=== PATIENT | male | born 1945 | race Caucasian/White ===

== ENCOUNTER 2025-03-17 09:44 | Outpatient (OUT) | payer OTHER, SELFPAY ==
--- OUTSIDE RECORDS SUMMARY | 2024-05-05 05:00 | XMS_ITS | Encounter Summary ---
Author Name [facility] [place] [facility] Address [address] [place] [address] Care Team Providers Care Vice President Pharmacy Name Role Phone ROBERTYUKION Primary Care Provider Unavailabl e Insurance Providers: All historical and current Section Date Range: From patient's date of to the date document was created. This section includes the names of all active insurance providers for the patient. Insurance Provider Type of Coverage Plan Name Start of Policy Coverage End of Policy Coverage Group Number Member ID Insurance Provider's Telephone Number Policy Gonzales's Name Patient's Relationship to Policy Gonzales [employer] [facility] (WNR) MEDICARE ADVANTAGE [facility] ([facility]) Oct 21, [id number] [id number] [phone] WIDMAN,SCOTT WRENCE PATIENT [employer]ETNA [facility] (WNR) MEDICARE ADVANTAGE [facility] ([facility]) Oct 21, [id number] [id number] WIDMAN,LA WRENCE PATIENT MEDICARE (WNR) MEDICARE (M) PART A Aug 21, 2009 PART A [id number] WIDMAN,LA WRENCE PATIENT MEDICARE (WNR) MEDICARE (M) PART B Aug 21, 2009 PART B [id number] WIDMAN,LA WRENCE PATIENT Selected Encounter This section includes the information on record at [place] for the Encounter. Date/Time Encounter Type Encounter Description Reason Provider Source May 05, 2024 09:00 AM HEARING AID REPAIR/MODIFYIN G AUDIOLOGY ICD-10-CM Z46.1 Encounter for fitting and adjustment of hearing aid JOHAN PICKETT Rishi Encounter Template Text not used by [place] Assessments - Encounter Diagnoses This section includes the primary and secondary diagnoses documented for the Encounter. Date/Time Primary/Secondary Diagnosis Diagnosis Name Provider Source May 05, 2024 09:00 AM PRIMARY Encounter for fitting and adjustment of hearing aid WANDA LAWSON [facility] Plan of Treatment: Future Appointments (+ 6 months) and Future Tests (+/- 45 days) The Plan of Treatment section includes future care activities for the patient from all [place] treatmentfacilities. This section includes future appointments and future orders which are active, pending or scheduled. Future Appointments This section includes appointments that were scheduled to occur 6 months from the date of the Encounter, up to a maximum of 20 appointments. The data comes from all [place] treatment facilities. Appointment Date/Time Appointment Type Appointme nt Facility Name Jul 06, 2024 09:30 AM AMBULATORY - MEDICINE [facility] Sep 03, 2024 09:00 AM AMBULATORY - NONE [facility] Social History: Smoking Status (Most current) and Tobacco Use (All prior to encounter date) This section includes the most current, and the historical, smoking and tobacco- related health factors from the [place] facility where the Encounter took place. Current Smoking Status This section includes the most current smoking, or tobacco-related health factor, from the [place] facility where the Encounter took place. Date/Time Current Smoking Status Comment Facil ity Jul 08, 2023 09:30 AM VA-TOBACCO FORMER USER [facility] Tobacco Use History This section includes a history of the smoking, or tobacco-related health factors, that were collected on or before the date of the Encounter. The data comes from the [place] facility where the Encounter took place. Date/Time Smoking Status/Tobacco Use Comment F acility Jul 08, 2023 09:30 AM [place] QU[place] 15 YRS OR MORE [facility] Jul 11, 2022 03:30 PM VA-TOBACCO FORMER USER [facility] Jul 11, 2022 03:30 PM [place] 15 YRS OR MORE [facility] February 24, 2021 10:30 AM VA-TOBACCO NEVER USED [facility] Encounter Notes: All associated encounter notes This section contains the clinical notes associated to the Encounter. Date/Time Encounter Note(s) Provider Source May 05, 2024 08:49 AM AUDIOLOGY DIAGNOST IC STUDY NOTE: LOCAL TITLE: AUDIOLOGY HEARING AID STANDARD TITLE: AUDIOLOGY DIAGNOSTIC STUDY NOTE DATE OF NOTE: MAY 05, 2024@08:49 ENTRY DATE: MAY 05, 2024@08:49:53 AUTHOR: JEANNE LAWSON COSIGNER: URGENCY: STATUS: COMPLETED Hearing Device Clinic Model: Phonak LoopMeeo P90-R JESÚS Serial#: [id number] (R) Serial#: [id number] (L) SCHEDULED APPOINTMENT (Face to Face) Patient complaint: wire broke Initial visual inspection/listening check: -LEFT hearing aid is functional, listening check OK -RIGHT hearing aids instructor knitting is broken Repair actions taken: -Cleaned and checked hearing aids -Replaced wax filters -Replaced batteries -Vacuumed microphone ports -Replaced right instructor knitting -Replaced domes After above actions taken: -Listening check OK, BOTH hearing aids functional -BOTH Functional hearing aids returned to the pleased with today's visit. Recommend return to clinic PRN. /eliud/ JEANNE LAWSON CLIENT CONSULTANT Signed: 05/05/2024 09:04 JEANNE LAWSON [facility]
--- OUTSIDE RECORDS SUMMARY | 2024-07-06 05:30 | XMS_ITS | Encounter Summary ---
Author Name [facility] (MD[facility] Organization [facility] Address [address] [place] [address] Care Team Providers Care Laborer [place] Name Role Phone ROBERT PRESTON Primary Care Provider Unavailabl e Insurance Providers: [...] Name Patient's Relationship to Policy Gonzales AETNA [facility] (WNR) MEDICARE ADVANTAGE [facility] ([facility]) Oct 21, 2022 [id number] [phone] [place],LA WRENCE PATIENT [employer] MCR (WNR) MEDICARE ADVANTAGE MCR ([facility]) Oct 21, 2022 [id number] WIDMAN,LA WRENCE PATIENT MEDICARE (WNR) MEDICARE (M) PART A Aug 21, 2009 PART A [id number] WIDMAN,[place] WRENCE PATIENT MEDICARE (WNR) MEDICARE (M) PART B Aug 21, 2009 PART B [id number] WIDMAN,LA WRENCE PATIENT Selected Encounter This section includes the information on record at MD for the Encounter. Date/Time Encounter Type Encounter Description Reason Provider Source Jul 06, 2024 09:30 AM OFFICE O/P EST HI 40 MIN PRIMARY CARE/MEDICINE ICD-10-CM I10 Essential (primary) hypertension PRESTON JONES KYLAHRishi Encounter Template Text not used by MD Assessments - Encounter Diagnoses This section includes the primary and secondary diagnoses documented for the Encounter. Date/Time Primary/Secondary Diagnosis Diagnosis Name Provider Source Jul 06, 2024 10:08 AM PRIMARY Essential (primary) hypertension RUPESH SMYTH [facility] Jul 06, 2024 10:08 AM SECONDARY Hyperlipidemia, unspecified RUPESH SMYTH [facility] Jul 06, 2024 10:08 AM SECONDARY Nonrheumatic aortic (valve) stenosis RUPESH SMYTH [facility] Jul 06, 2024 10:08 AM SECONDARY Pulmonary fibrosis, unspecified [facility] Jul 06, 2024 10:08 AM SECONDARY Rheumatoid arthritis, unspecified [facility] Plan of Treatment: Future Appointments (+ 6 months) and Future Tests (+/- 45 days) The Plan of Treatment section includes future care activities for the patient from [facility]. This section includes future appointments and future orders which are active, pending or scheduled. Future Appointments This section includes appointments that were scheduled to occur 6 months from the date of the Encounter, up to a maximum of 20 appointments. The data comes from all MD treatment facilities. Appointment Date/Time Appointment Type Appointme nt Facility Name Sep 03, 2024 09:00 AM [facility]ATORY - [facility] Nov 13, 2024 11:30 AM [facility] - [facility] Nov 24, 2024 10:00 AM [facility]ORY - [facility] Vital Signs: All taken on the encounter date This section contains inpatient and outpatient Vital Signs collected on the date of the Encounter. Date/Time Temperature Pulse Blood Pressure Respiratory Rate SP02 Pain Height Weight Body Mass Index Source Jul 06, 2024 09:44 AM 98.6 63 135/47 18 99 187 29 [facility] Jul 06, 2024 09:30 AM 4 [facility] Social History: Smoking Status (Most current) and Tobacco Use (All prior to encounter date) This section includes the most current, and the historical, smoking and tobacco- related health factors from the MD facility where the Encounter took place. Current Smoking Status This section includes the most current smoking, or tobacco-related health factor, from the MD facility where the Encounter took place. Date/Time Current Smoking Status Comment Frank ity Jul 06, 2024 09:30 AM VA-TOBACCO FORMER USER [facility] Tobacco Use History This section includes a history of the smoking, or tobacco-related health factors, that were collected on or before the date of the Encounter. The data comes from the MD facility where the Encounter took place. Date/Time Smoking Status/Tobacco Use Comment F acility Jul 06, 2024 09:30 AM VA-TOBACCO QUIT 15 YRS OR MORE [facility] Jul 08, 2023 09:30 AM VA-TOBACCO FORMER USER [facility] Jul 08, 2023 09:30 AM VA-TOBACCO QUIT 15 YRS OR MORE [facility] Jul 11, 2022 03:30 PM VA-TOBACCO FORMER USER [facility] Jul 11, 2022 03:30 PM VA-TOBACCO QUIT 15 YRS OR MORE [facility] February 24, 2021 10:30 AM MD-TOBACCO NEVER USED [facility] Encounter Notes: All associated encounter notes This section contains the clinical notes associated to the Encounter. Date/Time Encounter Note(s) Provider Source Jul 06, 2024 10:12 AM SOCIAL WORK NOTE: LOCAL TITLE: CLINICAL ASSESSMENT OF SOCIAL AND HEALTH EQUITY WOR STANDARD TITLE: SOCIAL WORK NOTE DATE OF NOTE: JUL 06, 2024@10:12 ENTRY DATE: JUL 06, 2024@10:12:24 AUTHOR: RUPESH SMYTH EXP COSIGNER: URGENCY: STATUS: COMPLETED Clinical Assessment of Social & Health Equity Worksheet (RODOLFO) Screening completed Housing (consider warm hand-off): (Are you worried or concerned that in the next two months you may NOT have stable housing that you own, rent, or stay in as part of a household?) No need identified at this time Food (consider warm hand-off): (In the past 12 months, have you worried whether your food would run out before you got money to buy more or the food you bought just didn't last and you didn't have money to get more?) No need identified at this time Utilities: (Do you have trouble paying for your utilities (e.g., electric, gas, oil, water, or phone)?) No need identified at this time Transportation: (Has a lack of transportation kept you from medical appointments, meetings, work, or from getting things needed for daily living?) No need identified at this time Legal: (Do you currently have any legal issues you need help with?) No need identified at this time Social Support/Loneliness or Isolation: (Do you feel lonely or isolated from those around you?) No need identified at this time Employment: (Do you need help finding or keeping work or a job No need identified at this time Education: (Do you want more information about educational benefits and resources for Veterans?) No need identified at this time Technology/Digital Divide: (Do you run out of phone minutes and/or data before the end of the month or have trouble accessing the internet?) No need identified at this time Would it be okay if a MD staff member were to give the [place] a call in the future? No, the does NOT want a MD staff member to contact them for a follow up interview If requested assistance, click the appropriate consult: /eliud/ RUPESH SMYTH LPN Signed: 07/06/2024 10:13 RUPESH SMYTH [facility] Jul 06, 2024 09:36 AM PRIMARY CARE OUTPATIENT NOTE: LOCAL TITLE: PRIMARY CARE STANDARD TITLE: PRIMARY CARE OUTPATIENT NOTE DATE OF NOTE: JUL 06, 2024@09:36 ENTRY DATE: JUL 06, 2024@09:36:52 AUTHOR: PRESTON JONES EXP COSIGNER: URGENCY: STATUS: COMPLETED PCP: Cleo Caceres CNP q 3 months Oncology Conventional Underwriter Dr.Shanna De La Rosa Rheumatology Dr.Dana White [facility] Pain management (LBP) MECHE [place] sc 60% ASSESSMENT/PLAN: (co-managed) -HTN BP stable managed by local md: on lisinopril,amlodopine,HCTZ -HLP on statin per private md -Moderate Aortic Stenosis + MR EF 55-60% TTE 08/2023 asymptomatic sees private career services director (declined to schedule with [facility] previously) -MACO + h/o TIA 2002 sees private md on ASA + statin -B/L Gyncomastia, since 2021 was told to be from covid infection? work up per private md -RA quiescent, no flares on prednisone 2.5mg daily, hydroxychloroquine sees private rheum sees [facility] opthal 01/2024: w/o retinopathy OU -UIP (RA associated ILD)/Pulmonary Fibrosis basilar honeycombing/traction bronchiectasis on imaging 02/2024 (jlv) sees private pulmologist Dr. Patel not on O2 -LBP/Lumbar Spinal Stenosis/DDD sees private pain md s/p injections + RFA, last was march 2024 on left side, helpful -Colon Polyps colonoscopy: 01/15/2024: tubular adenoma rpt in 3-4 yrs, defer to private md (stong +FH of CRC: 3 brothers + dad) daughter declines referral to CC printing services coordinator -Immunizations: -Labs: defer to private md RTC: 12 months HERE FOR: annual visit for update/co-managed comes in with , jade had covid infecton in 2020 and 2022 and says after second episode he lost his memory, not needing oxygen but admitted 2 days. now memory is 90% better, cannot remember names still. developped bilateral gynecomastia in ~2021, 44 C bra size, now decreasing in size. had work up: and CT revealed enlarged right axillary lymph nodes lost wt 40 lbs but gained back 20 lbs watching portion size seeing specialist noticed hard lump lipoma right lateral abdomen using hydrocortisone for rash BP: stable sees pulmonolgist for pulmonary fibrosis per JL: CT 03/10/2024: Essentially stable bibasilar predominant mild traction bronchiectasis and honeycombing compatible with interstitial lung disease in a pattern consistent with usual interstitial pneumonia. see Assessment/Plan above for further details of today's visit ROS: 12 system ROS negative except as above Past Medical History: HTN Aortic Stenosis (moderate)/Moderate MR EF 60% 09/2022 EF 55-60% 08/2023 Dyslipidemia Carotid Artery Stenosis (osh CTA 10/2022: mild-mod R ICA stenosis/excentric calcific plaque) TIA 2004 Seropositive RA (x 2013) Interstitial Lung Disease/Fibrosis/UIP (10/2022) COPD Ex-Tobacco user (quit in 1999) Peptic Ulcer/DU (remote) (sc 40%) Hemorrhoids Adenomatous Colon Polyps strong FH of Colon Cancer B/L Gyncomastia (since 2021) BPH ED OA Knees/post traumatic Right Ankle Lumbar Spondylosis/Spinal Stenosis (sc 40%) w/o Myelopathy s/p RFAs/injections Hearing Loss Gynecomastia b/l Past Surgical History: EGD/Colonoscopy 06/2020 Left Medial Meniscectomy 2019 Left TKA 01/05/21 Left Hernia Repair Right Ankle ORIF ~2011 Lumbar RFAs 08/2022 + 01/2024 MBBB Lumbar 10/2022 + 03/2023 B/L Cluneal Nerve Block 06/21/23 Allergies: see cover sheet Medications: see list Social: Tobacco: quit ~ 1999 EtOH: quit ~1999 no illicit drugs 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 [address] [phone], honorable d/c deployed Mayur lives with 6 kids daughter: Charlotte is nurst at [employer], [place] Family: mom: stroke age 78 dad: of metastatic colon cancer (diagnosed age 75) 3 brothers have colon cancer (diagnosed age 60s) 11 siblings total brother of stroke brother: bladder and colon cancer PHYSICAL EXAM: BP -135/47 (07/06/2024 09:44)P -63 (07/06/2024 09:44) R -18 (07/06/2024 09:44) BODY MASS INDEX 29.3 (JUL 06, 2024@09:44:05) CHEST: clear CVS: S1 S2 normal, + systolic mummur Abdom: soft nontender no masses MusSkeltal: no deformity, swelling Neuro: normal tone and power throughout, non focal Total time spent during patient visit and entering orders for patient was 35 minutes. Reminders P-MEDICATION RECONCILIATION: Review of medications with the patient at the time of this encounter included: Patient local and remote allergies, active and pending prescriptions dispensed from this [facility] (local) and dispensed from another MD or DoD facility (remote) as well as local inpatient and clinic medications (IMOs), locally documented non-VA medications and local prescriptions that have or been discontinued in the past 90 days. With the exception of allergies, if a category is not listed below, it means there were no relevant medications for the patient. The patient /family member received an updated list of current medications. Patient verbalized understanding. Local & Remote Allergies: PROCAINE Active Outpatient Medications (including Supplies): SILDENAFIL CITRATE 100MG TAB TAKE ONE-HALF TABLET BY MOUTH ACTIVE (S) NEEDED FOR ERECTILE DYSFUNCTION 60 MINUTES BEFORE SEXUAL ACTIVITY (VIAGRA) 90 DAY SUPPLY Non-VA AMLODIPINE BESYLATE 10MG TAB 10MG MOUTH ONCE DAILY ACTIVE Non-VA ASPIRIN 81MG EC TAB 81MG MOUTH ONCE DAILY ACTIVE Non-VA CELECOXIB 200MG CAP 200MG MOUTH TWICE A DAY ACTIVE Non-VA FAMOTIDINE TAB MOUTH ACTIVE Non-VA FERROUS SULFATE 325MG TAB 325MG MOUTH TWICE A DAY ACTIVE Non-VA FLUTICASONE PROP 50MCG 120D NASAL INHL 1 SPRAY EACH ACTIVE NOSTRIL ONCE DAILY Non-VA HYDROCHLOROTHIAZIDE 25MG TAB 25MG MOUTH EVERY ACTIVE MORNING Non-VA HYDROXYCHLOROQUINE SULFATE 200MG TAB 200MG MOUTH ACTIVE ONCE DAILY Non-VA LISINOPRIL 40MG TAB 40MG MOUTH ONCE DAILY ACTIVE Non-VA LOVASTATIN 40MG TAB 40MG MOUTH EVERY EVENING WITH ACTIVE DINNER Non-VA METHOTREXATE (PF) INJ ACTIVE Non-VA PREDNISONE 5MG TAB 2.5MG MOUTH EVERY MORNING ACTIVE /es/ PRESTON JONES STAFF PHYSCIAN Signed: 07/06/2024 10:10 PRESTON JONES [facility] Jul 06, 2024 09:28 AM PRIMARY CARE NURSING NOTE: LOCAL TITLE: PRIMARY CARE PREVENTIVE HEALTH STANDARD TITLE: PRIMARY CARE NURSING NOTE DATE OF NOTE: JUL 06, 2024@09:28 ENTRY DATE: JUL 06, 2024@09:28:15 AUTHOR: RUPESH SMYTH EXP COSIGNER: URGENCY: STATUS: COMPLETED S: In person appt. here for provider. O: Vitals entered. P: To see a provider. C/O: lower back pain N-Pain Screen: Are you currently experiencing pain? Yes - DVPRS scale used to assess Location: lower back pain Defense and Veterans Pain Rating Scale (DVPRS): 4 Distracts me, can do usual activities Pain Score: 4 Patient's acceptable pain goal: 0 No pain N-MEDICATION RECONCILIATION: Review of medications and allergies at the time of this encounter included: Local and remote allergies, active and pending prescriptions dispensed from this MD (local) and dispensed from another VA or DoD facility (remote) as well as local inpatient and clinic medications (IMOs), locally documented non-VA medications and local prescriptions that have or been discontinued in the past 90 days. If a category is not listed below, it means there were no known relevant local and/or remote medications and/or allergies. The patient/family member received an updated list of current medications. Local & Remote Allergies: PROCAINE Active Outpatient Medications (including Supplies): SILDENAFIL CITRATE 100MG TAB TAKE ONE-HALF TABLET BY MOUTH ACTIVE (S) NEEDED FOR ERECTILE DYSFUNCTION 60 MINUTES BEFORE SEXUAL ACTIVITY (VIAGRA) 90 DAY SUPPLY Non-VA AMLODIPINE BESYLATE 10MG TAB 10MG MOUTH ONCE DAILY ACTIVE Non-VA ASPIRIN 81MG EC TAB 81MG MOUTH ONCE DAILY ACTIVE Non-VA CELECOXIB 200MG CAP 200MG MOUTH TWICE A DAY ACTIVE Non-VA FAMOTIDINE TAB MOUTH ACTIVE Non-VA FERROUS SULFATE 325MG TAB 325MG MOUTH TWICE A DAY ACTIVE Non-VA FLUTICASONE PROP 50MCG 120D NASAL INHL 1 SPRAY EACH ACTIVE NOSTRIL ONCE DAILY Non-VA HYDROCHLOROTHIAZIDE 25MG TAB 25MG MOUTH EVERY ACTIVE MORNING Non-VA HYDROXYCHLOROQUINE SULFATE 200MG TAB 200MG MOUTH ACTIVE ONCE DAILY Non-VA LISINOPRIL 40MG TAB 40MG MOUTH ONCE DAILY ACTIVE Non-VA LOVASTATIN 40MG TAB 40MG MOUTH EVERY EVENING WITH ACTIVE DINNER Non-VA METHOTREXATE (PF) INJ ACTIVE Non-VA PREDNISONE 5MG TAB 2.5MG MOUTH EVERY MORNING ACTIVE Alcohol Use Screen (AUDIT-C): Alcohol Screen: SCREEN FOR ALCOHOL (AUDIT-C) An alcohol screening test (AUDIT-C) was negative (score=1). 1. How often did you have a drink containing alcohol in the past year? Consider a drink to be a 12 ounce can or bottle of regular beer, 8 ounces of malt liquor, a 5 ounce glass of table wine, or a 1.5 ounce shot of liquor (like scotch, gin, or vodka). Monthly or less 2. How many drinks containing alcohol did you have on a typical day when you were drinking in the past year? One or two drinks 3. How often did you have six or more drinks on one occasion in the past year? Never Tobacco Use Screening: The patient is a former tobacco user. The patient quit fifteen or more years ago. N-Stress Discussed (VAAAHS): [place] DENIES experiencing substantial stress or worry in the past month. Depression Screening: Perform PHQ-2 A PHQ-2 screen was performed. The score was 0 which is a negative screen for depression. Over the past two weeks, how often have you been bothered by the following problems? 1. Little interest or pleasure in doing things Not at all 2. Feeling down, depressed, or hopeless Not at all Suicide Screen: C-SSRS Screening [place] Suicide Severity Rating Scale (C-SSRS) screener 1. Over the past month, have you wished you were or wished you could go to sleep and not wake up? No 2. Over the past month, have you had any actual thoughts of killing yourself? No 3. Over the past month, have you been thinking about how you might do this? Response not required due to responses to other questions. 4. Over the past month, have you had these thoughts and had some intention of acting on them? Response not required due to responses to other questions. 5. Over the past month, have you started to work out or worked out the details of how to kill yourself? Response not required due to responses to other questions. 6. If yes, at any time in the past month did you intend to carry out this plan? Response not required due to responses to other questions. 7. In your lifetime, have you ever done anything, started to do anything, or prepared to do anything to end your life (for example, collected pills, obtained a gun, gave away valuables, went to the roof but didn't jump)? No 8. If YES, was this within the past 3 months? Response not required due to responses to other questions. N HEALTHY SKIN REMINDER: Do you use sunscreen when [id number]? YES. No further action. Do you check your skin regularly for new spots or changes in existing moles or lesions? YES. Do you require assistance to transfer or change position? NO. Are you confined to bed or a chair or are you a wheel-chair user? NO. Do you have any medical devices (e.g. artificial limb, braces, splint, oxygen tubing, [place] or Condom catheter, tracheostomy, feeding tube, etc)? NO. Do you have a current pressure injury or history of a pressure injury (i.e. [place]) that is NOT related to a medical transcription? NO. N-Education Assessment: Patients preferred language for discussing healthcare: Language: Maori READINESS TO LEARN ASSESSMENT Readiness good Level of Understanding: Good N-FRAIL ELDERLY SCREEN (ACOVE): FALLS HISTORY: Has the patient fallen within the past 12 months? NO. FUNCTIONAL ASSESSMENT: Index of [place] in Activities of Daily Living ACTIVITIES: INDEPENDENCE (1 point) NO supervision, direction, or personal assistance. DEPENDENCE (0 points) WITH supervision, direction, personal assistance, OR total care. Points: 1 BATHING: (1 point) Baths self completely or needs help in bathing only a single a single part of the body such as the back, genital area or disabled extremity. (0 point) Needs help with bathing more than one part of the body, getting in or out of the tub or shower. Requires total bathing. Points: 1 DRESSING: (1 point) Gets clothes from closets and drawers and puts on clothes and outer garments complete with fasteners. May complete with fasteners. May have help tying shoes. (0 point) Needs help withdressing self or needs to be completely dressed. Points: 1 TRANSFERRING: (1 point) Moves in and out of bed or chair unassisted. Mechanical transferring aides are acceptable. (0 point) Needs help in moving from bed to chair or requires a complete transfer. Points: 1 TOILETING: (1 point) Goes to toilet, gets on and off, arranges clothes, cleans genital area without help. (0 point) Needs help transferring to the toilet, cleaning self or uses bedpan or commode. Points: 1 CONTINENCE: (1 point) Exercises complete self control over urination and defecation. (0 point) Is partially totally incontinent of bowel or bladder. Points: 1 Patient satisfied with current status FEEDING: (1 point) Gets food from plate into mouth without help Preparation of food may be done by another person. (0 point) Needs partial or total help with feeding or requires parenteral feeding. Points: 1 TOTAL POINTS: 6=High (patient independent) 0=Low (patient very dependent) 6 INSTRUMENTAL ACTIVITIES OF DAILY LIVING (IADL) SCALE ([place]) Ability to use telephone: 1 point - Operates telephone on own initiative; looks up and dials numbers, etc. Shoppin point - Takes care of all shopping needs independently Food preparation: 1 point - Plans, prepares, and serves adequate meals independently Housekeepin point - Maintains house alone or with occasional assistance (e.g., heavy work domestic help ) Laundry: 1 point - Does personal laundry completely Mode of transportation: 1 point - Travels independently on public transportation or drives own car Responsibility for own medications: 1 point - Is responsible for taking medication in correct dosages at correct time Ability to handle finances: 1 point - Manages financial matters independently (budgets, writes checks, pays rent and bills, goes to bank), collects and keeps track of income SCORING: The total score may range from 0 - 8. A lower score indicates a higher level of dependence. Total score: 8 points Click appropriate selection below: Patient does not require assistance. /eliud/ RUPESH SMYTH LPN Signed: 07/06/2024 09:41 RUPESH SMYTH [facility] Jul 03, 2024 08:08 AM NURSING NOTE: LOCAL TITLE: NURSING NOTE STANDARD TITLE: NURSING NOTE DATE OF NOTE: JUL 03, 2024@08:08 ENTRY DATE: JUL 03, 2024@08:08:15 AUTHOR: DEBBIE VALDOVINOS EXP COSIGNER: URGENCY: STATUS: COMPLETED It Programmer contacted today: To confirm patient will attend upcoming in-person primary care appointment. Patient ASKED TO arrive 15 minutes early, to ensure appointment with MD starts promptly. verbalized understanding and denied question/concerns at the end of call. /eliud/ DEBBIE VALDOVINOS LPN Signed: 07/03/2024 08:08 DEBBIE VALDOVINOS [facility]
--- OUTSIDE RECORDS SUMMARY | 2024-09-03 05:00 | XMS_ITS ---
Author Name Department of Vetera Affairs (MD) Organization Department of Vetera Affairs ([place]) Address [address] [place] [address] Care Team Providers Care Beam Dyer Operator Name Role Phone ROBERTYUKION Primary Care Provider [...] Name Patient's Relationship to Policy Gonzales AETNA [facility] ([place]) MEDICARE ADVANTAGE [facility] ([facility]) Oct 21, 2022 [id number]- [place] [id number] [phone] WIDMAN,LA WRENCE PATIENT AETNA [facility] (WNR) MEDICARE ADVANTAGE [facility] ([facility]) Oct 21, 2022 [id number] [place] [id number] [phone] WIDMAN,LA WRENCE PATIENT MEDICARE (WNR) MEDICARE (M) PART A Aug 21, 2009 PART A [id number] WIDMAN,LA WRENCE PATIENT MEDICARE (WNR) MEDICARE (M) PART B Aug 21, 2009 PART B [id number] [phone] WIDMAN,LA WRENCE PATIENT Selected Encounter This section includes the information on record at MD for the Encounter. Date/Time Encounter Type Encounter Description Reason Provider Source Sep 03, 2024 09:00 AM HEARING AID REPAIR/MODIFYIN G AUDIOLOGY ICD-10-CM Z46.1 Encounter for fitting and adjustment of hearing aid JOHAN PICKETT [facility] Encounter Template Text not used by MD Assessments - Encounter Diagnoses This section includes the primary and secondary diagnoses documented for the Encounter. Date/Time Primary/Secondary Diagnosis Diagnosis Name Provider Source Sep 03, 2024 09:05 AM PRIMARY Encounter for fitting and adjustment of hearing aid WANDA LAWSON [facility] Plan of Treatment: Future Appointments (+ 6 months) and Future Tests (+/- 45 days) The Plan of Treatment section includes future care activities for the patient from all [facility]. This section includes future appointments and future orders which are active, pending or scheduled. Future Appointments This section includes appointments that were scheduled to occur 6 months from the date of the Encounter, up to a maximum of 20 appointments. The data comes from all MD treatment facilities. Appointment Date/Time Appointment Type Appointme nt Facility Name Nov 13, 2024 11:30 AM AMBULATORY - MEDICINE [facility] Nov 24, 2024 10:00 AM AMBULATORY - MEDICINE [facility] Jan 13, 2025 09:45 AM AMBULATORY - SURGERY [facility] Social History: Smoking Status (Most [...] Current Smoking Status Comment Facil ity Jul 06, 2024 09:30 AM VA-TOBACCO FORMER USER [facility] Tobacco Use History This section includes a history of the smoking, or tobacco-related health factors, that were collected on or before the date of the Encounter. The data comes from the MD facility where the Encounter took place. Date/Time Smoking Status/Tobacco Use Comment F acility Jul 06, 2024 09:30 AM MD-TOBACCO QUIT 15 YRS OR MORE [facility] Jul 08, 2023 09:30 AM MD-TOBACCO FORMER USER [facility] Jul 08, 2023 09:30 AM MD-TOBACCO QUIT 15 YRS OR MORE [facility] Jul 11, 2022 03:30 PM VA-TOBACCO FORMER USER [facility] Jul 11, 2022 03:30 PM MD-TOBACCO QUIT 15 YRS OR MORE [facility] February 24, 2021 10:30 AM VA-TOBACCO NEVER USED [facility] Encounter Notes: All associated encounter notes This section contains the clinical notes associated to the Encounter. Date/Time Encounter Note(s) Provider Source Sep 03, 2024 08:51 AM AUDIOLOGY DIAGNOST IC STUDY NOTE: LOCAL TITLE: AUDIOLOGY HEARING AID STANDARD TITLE: AUDIOLOGY DIAGNOSTIC STUDY NOTE DATE OF NOTE: SEP 03, 2024@08:51 ENTRY DATE: SEP 03, 2024@08:51:38 AUTHOR: JEANNE LAWSON EXP COSIGNER: URGENCY: STATUS: COMPLETED Hearing Device Clinic Model: Phonak Audeo P90-R JESÚS Serial#: [id number] (R) Serial#: [id number] (L) SCHEDULED APPOINTMENT (Face to Face) Patient complaint: The left one was not charging, but I put it on the electrolog operator last night and it is working now. It has a mind of its own. Rupert was using old charging wall plug, gave him a new one from clinic stock. Initial visual inspection/listening check: -BOTH hearing aids are functional, listening check OK Repair actions taken: -Cleaned and checked hearing aids -Replaced wax filters -Vacuumed microphone ports -Replaced domes instructed to call clinic and make a tech appt if issue continues After above actions taken: -Listening check OK, BOTH hearing aids functional -BOTH Functional hearing aids returned to the pleased with today's visit. Recommend return to clinic PRN. /eliud/ JEANNE LAWSON PHYSICAL SCIENCES PROFESSOR Signed: 09/03/2024 09:26 Receipt Acknowledged By: 09/03/2024 09:37 /eliud/ LEX PICKETT GATHERING WORKER JEANNE LAWSON [facility]
--- OUTSIDE RECORDS SUMMARY | 2024-11-13 07:30 | XMS_ITS | Encounter Summary ---
Author Name Department of Vetera Affairs ([place]) Organization [facility] Address [address] [place] [address] Care Team Providers Care Smoke Eater Name Role Phone ROBERTPRESTON Primary Care Provider Unavailabl e Insurance Providers: [...] Gonzales's Name Patient's Relationship to Policy Gonzales AENA [facility] MEDICARE ADVANTAGE [facility] Oct 21, 2022 [id number] [place] [id number] [phone] WIDMAN,SCOTT WRENCE PATIENT AETNA [facility] (WNR) MEDICARE ADVANTAGE [facility] ([facility]) Oct 21, 2022 [id number] [place] [id number] WIDMAN,LA WRENCE PATIENT MEDICARE (WNR) MEDICARE (M) PART A Aug 21, 2009 PART A [id number] WIDMAN,LA WRENCE PATIENT MEDICARE (WNR) MEDICARE (M) PART B Aug 21, 2009 PART B [id number] WIDMAN,LA WRENCE PATIENT Selected Encounter This section includes the information on record at [place] for the Encounter. Date/Time Encounter Type Encounter Description Reason Provider Source Nov 13, 2024 11:30 AM OFF/OP EST FEBRUARY X REQ PHY/QHP PRIMARY CARE/MEDICINE ICD-10-CM I10 Essential (primary) hypertension VINAY CAMERON I[facility] Encounter Template Text not used by [place] Assessments - Encounter Diagnoses This section includes the primary and secondary diagnoses documented for the Encounter. Date/Time Primary/Secondary Diagnosis Diagnosis Name Provider Source Nov 13, 2024 11:49 AM PRIMARY Essential (primary) hypertension RAQUEL CAMERON [facility] Plan of Treatment: Future Appointments (+ 6 months) and Future Tests (+/- 45 days) The Plan of Treatment section includes future care activities for the patient from all [place] treatmentfacilities. This section includes future appointments and future orders which are active, pending or scheduled. Future Appointments This section includes appointments that were scheduled to occur 6 months from the date of the Encounter, up to a maximum of 20 appointments. The data comes from all [place] treatment facilities. Appointment Date/Time Appointment Type Appointme nt Facility Name Nov 24, 2024 10:00 AM AMBULATORY - MEDICINE [facility] Jan 13, 2025 09:45 AM AMBULATORY - SURGERY [facility] Vital Signs: All taken on the encounter date This section contains inpatient and outpatient Vital Signs collected on the date of the Encounter. Date/Time Temperature Pulse Blood Pressure Respiratory Rate SP02 Pain Height Weight Body Mass Index Source Nov 13, 2024 11:39 AM 77 136/72 18 99 [facility] Encounter Notes: All associated encounter notes This section contains the clinical notes associated to the Encounter. Date/Time Encounter Note(s) Provider Source Nov 13, 2024 11:41 AM NURSING NOTE: LOCAL TITLE: PACT SENIOR PROJECT ARCHITECT NOTE STANDARD TITLE: NURSING NOTE DATE OF NOTE: NOV 13, 2024@11:41 ENTRY DATE: NOV 13, 2024@11:41:04 AUTHOR: EL CAMERON EXP COSIGNER: URGENCY: STATUS: COMPLETED identified by two patient identifiers S Verónica, I came into clinic today bc my BP was very high when I took it this morning, 200/100 then 150/80, I feel ok, I took my medicine this morning, we are traveling from [place] and here until december O in attendence, [facility] exam room, no issues, plesant, talkative, dresses appropriatefor weather A AAOX3, No signs of distress, no signs of SOB,VS documented, denies blurred vision, denies dizziness P Ok to go home today, continue to monitor BP, has wrist BP cuff and was not crossing his wrist over his chest while BP cuff running, probably resulting in false reading, education completed on those type of BP cuffs, verbalized understanding Please schedule an appt with [facility] for hearing aid adjustments /eliud/ EL CAMERON RN,BSN Signed: 11/13/2024 11:48 Receipt Acknowledged By: 11/13/2024 14:49 /es/ ADRIAN BRASWELL PHYSICIAN - V16 [facility] 11/23/2024 09:30 /eliud/ EL ACOSTA [facility]
--- OUTSIDE RECORDS SUMMARY | 2024-11-24 06:00 | XMS_ITS | Encounter Summary ---
Author Name Department of [place] Organization [place] Address [address] [place] [address] Care Team Providers Care Energy Risk Management Analyst Name Role Phone ROBERTYUKION Primary Care Provider [...] Name Patient's Relationship to Policy Gonzales AETNA [facility] (WNR) MEDICARE ADVANTAGE [facility] ([facility]) Oct 21, 2022 [id number] [place] [id number] [phone] WIDMAN,SCOTT WRENCE PATIENT AETNA [facility] (WNR) MEDICARE ADVANTAGE [facility] ([facility]) Oct 21, 2022 [id number]- [place] [id number] WIDMAN,LA WRENCE PATIENT MEDICARE (WNR) MEDICARE (M) PART A Aug 21, 2009 PART A [id number] [phone] WIDMAN,LA WRENCE PATIENT MEDICARE (WNR) MEDICARE (M) PART B Aug 21, 2009 PART B [id number] WIDMAN,LA WRENCE PATIENT Selected Encounter This section includes the information on record at [place] for the Encounter. Date/Time Encounter Type Encounter Description Reason Provider Source Nov 24, 2024 10:00 AM HEARING AID FITTING/CHECKIN G AUDIOLOGY ICD-10-CM Z46.1 Encounter for fitting and adjustment of hearing aid FALGUNI LOPEZ [facility] Encounter Template Text not used by [place] Assessments - Encounter Diagnoses This section includes the primary and secondary diagnoses documented for the Encounter. Date/Time Primary/Secondary Diagnosis Diagnosis Name Provider Source Nov 24, 2024 10:27 AM PRIMARY Encounter for fitting and adjustment of hearing aid FALGUNI LOPEZ [facility] Plan of Treatment: Future Appointments (+ 6 months) and Future Tests (+/- 45 days) The Plan of Treatment section includes future care activities for the patient from all [place] treatmentfacilities. This section includes future appointments and future orders which are active, pending or scheduled. Future Appointments This section includes appointments that were scheduled to occur 6 months from the date of the Encounter, up to a maximum of 20 appointments. The data comes from all [place] treatment facilities. Appointment Date/Time Appointment Type Appointme nt Facility Name Jan 13, 2025 09:45 AM AMBULATORY - SURGERY [facility] Encounter Notes: All associated encounter notes This section contains the clinical notes associated to the Encounter. Date/Time Encounter Note(s) Provider Source Nov 24, 2024 10:14 AM AUDIOLOGY NOTE: LOCAL TITLE: AUDIOLOGY HEARING AID NOTE STANDARD TITLE: AUDIOLOGY NOTE DATE OF NOTE: NOV 24, 2024@10:14 ENTRY DATE: NOV 24, 2024@10:14:13 AUTHOR: FALGUNI LOPEZ EXP COSIGNER: URGENCY: STATUS: COMPLETED IDENTIFICATION WAS VERIFIED USING TWO FORMS OF IDENTIFICATION. HEARING AID CHECK/REPAIR Reason for visit: reports difficulty hearing from his hearing aids. Make/Model: Phonak JESÚS-R Visual Inspection of Hearing Aids: Debris occluding receivers of both HAs. Listening Check of Hearing Aids: Good sound quality/loudness after replacing wax guards on HAs. Other Actions: Updated Firmware in hearing aids and ran Feedback test. Replaced retention strands. Outcome: [place] reported improvement in sound quality/loudness of hearing aids. Plan: [place] will return to [place] in a few weeks, and he was encouraged to schedule a hearing evaluation at the [facility] at that time. /eliud/ FALGUNI Cuenca, CCC-A Signed: 11/24/2024 10:[address] [facility]
--- OUTSIDE RECORDS SUMMARY | 2025-01-13 05:45 | XMS_ITS | Encounter Summary ---
Author Name Department of Vetera Affairs ([place]) Organization Department of Veter[place] Affairs [place] Address [address] [place] [address] Care Team Providers Care Party Plan Salesperson Name Role Phone ROBERTPRESTON Primary Care Provider [...] Name Patient's Relationship to Policy Gonzales AENA [facility] ([facility] MEDICARE ADVANTAGE [facility] ([facility]) Oct 21, 2022 [id number] [place] [id number] [phone] WIDMAN,LA WRENCE PATIENT AETNA [facility] (R) MEDICARE ADVANTAGE [facility] ([facility]) Oct 21, 2022 [id number] [place] [id number] WIDMAN,LA WRENCE PATIENT MEDICARE (WNR) MEDICARE (M) PART A Aug 21, 2009 PART A [id number] WIDMAN,LA WRENCE PATIENT MEDICARE (WNR) MEDICARE (M) PART B Aug 21, 2009 PART B [id number] WIDMAN,LA WRENCE PATIENT Selected Encounter This section includes the information on record at [place] for the Encounter. Date/Time Encounter Type Encounter Description Reason Provider Source Jan 13, 2025 09:45 AM CPTRZ OPH DX IMG PST SGM RTA OPTOMETRY ICD-10-CM Z79.899 Other senior living (current) drug therapy RACHEAL HOLT [facility] Encounter Template Text not used by [place] Assessments - Encounter Diagnoses This section includes the primary and secondary diagnoses documented for the Encounter. Date/Time Primary/Secondary Diagnosis Diagnosis Name Provider Source Jan 13, 2025 10:02 AM PRIMARY Other senior living (current) drug therapy RACHEAL HOLT [facility] Jan 13, 2025 10:02 AM SECONDARY Age-related nuclear cataract, bilateral RACHEAL HOLT [facility] Jan 13, 2025 10:02 AM SECONDARY Presbyopia [facility] Plan of Treatment: Future Appointments (+ 6 months) and Future Tests (+/- 45 days) The Plan of Treatment section includes future care activities for the patient from all [place] treatmentfacilities. This section includes future appointments and future orders which are active, pending or scheduled. Future Appointments This section includes appointments that were scheduled to occur 6 months from the date of the Encounter, up to a maximum of 20 appointments. The data comes from all [place] treatment facilities. Appointment Date/Time Appointment Type Appointme nt Facility Name Jun 28, 2025 09:30 AM AMBULATORY - MEDICINE [facility] Social History: Smoking Status (Most current) and Tobacco Use (All prior to encounter date) This section includes the most current, and the historical, smoking and tobacco- related health factors from the [place] facility where the Encounter took place. Current Smoking Status This section includes the most current smoking, or tobacco-related health factor, from the [place] facility where the Encounter took place. Date/Time Current Smoking Status Comment Facil ity Jul 06, 2024 09:30 AM VA-TOBACCO FORMER USER [facility] Tobacco Use History This section includes a history of the smoking, or tobacco-related health factors, that were collected on or before the date of the Encounter. The data comes from the [place] facility where the Encounter took place. Date/Time Smoking Status/Tobacco Use Comment F acility Jul 06, 2024 09:30 AM AR-TOBACCO QUIT 15 YRS OR MORE [facility] Jul 08, 2023 09:30 AM AR-TOBACCO FORMER USER [facility] Jul 08, 2023 09:30 AM VA-TOBACCO QUIT 15 YRS OR MORE [facility] Jul 11, 2022 03:30 PM VA-TOBACCO FORMER USER [facility] Jul 11, 2022 03:30 PM VA-TOBACCO QUIT 15 YRS OR MORE [facility] February 24, 2021 10:30 AM VA-TOBACCO NEVER USED [facility] Encounter Notes: All associated encounter notes This section contains the clinical notes associated to the Encounter. Date/Time Encounter Note(s) Provider Source Jan 13, 2025 10:32 AM OPHTHALMOLOGY OUTPATIENT NOTE: LOCAL TITLE: OPHTHALMOLOGY OUTPATIENT FOLLOW-UP STANDARD TITLE: OPHTHALMOLOGY OUTPATIENT NOTE DATE OF NOTE: JAN 13, 2025@10:32 ENTRY DATE: JAN 13, 2025@10:32:04 AUTHOR: NOEMI JOHNSON EXP COSIGNER: URGENCY: STATUS: COMPLETED DATE/TIME HPI: 79 y/o MALE The patient was identified by two means of identification (Full Name and Full Social Security Number) [place] [employer] [id number] OU Type of test: 10-2 standard Rx used for test Liquid lens OD: lens used: +5.25 OS: lens used: +5.50 Dilation: Yes OU: (Mydriacyl 1% - Phenyl 2.5%) /es/ NOEMI JOHNSON [facility] [employer] Lead Ads Marketing Optometry Signed: 01/13/2025 10:32 NOEMI JOHNSON [facility] Jan 13, 2025 10:32 AM OPHTHALMOLOGY OUTPATIENT NOTE: LOCAL TITLE: OPHTHALMOLOGY OUTPATIENT FOLLOW-UP STANDARD TITLE: OPHTHALMOLOGY OUTPATIENT NOTE DATE OF NOTE: JAN 13, 2025@10:32 ENTRY DATE: JAN 13, 2025@10:32:49 AUTHOR: NOEMI JOHNSON EXP COSIGNER: URGENCY: STATUS: COMPLETED ALLERGIES:PROCAINE HPI: 79 y/o MALE The patient was identified by two means of identification (Full Name and Full Social Security Number) DATE/TIME Dec Optical Coherence Tomography HD 5 Line Cross (04164) OU /es/ NOEMI JOHNSON [facility] [employer] Lead Ads Marketing Optometry Signed: 01/13/2025 10:33 NOEMI JOHNSON [facility] Jan 13, 2025 09:18 AM OPHTHALMOLOGY OUTPATIENT NOTE: LOCAL TITLE: OPHTHALMOLOGY OUTPATIENT FOLLOW-UP STANDARD TITLE: OPHTHALMOLOGY OUTPATIENT NOTE DATE OF NOTE: JAN 13, 2025@09:18 ENTRY DATE: JAN 13, 2025@09:18:50 AUTHOR: NOEMI JOHNSON COSIGNER: URGENCY: STATUS: COMPLETED OPHTHALMOLOGY OUTPATIENT FOLLOW-UP Has ADDENDA Ophthalmology Assessment Date:Dec CC: 79 yo MALE here for high risk exam with OCT/HVF to monitor for Plaquenil toxicity. Patient denies any ocular complaints or vision changes. No data available for: HGB A1C ROS: Do you have or have you ever had any of the following conditions? GENERAL: Allergies or Hayfever Yes Asthma / COPD No Sinus Problems Yes Diabetes No Thyroid Disease No Heart Disease No High Blood Pressure Yes Sleep Apnea No Tobacco Use No Alcohol Use No OCULAR: Eye Trauma No Eye Surgery No Amblyopia (lazy eye) No Double Vision No Crossed Eye / Wall Eye No Cataract (s) Yes Glaucoma No Macular Degeneration No Dry eyes No Other: FHx: (M=Mother,F=Father,B=Brother,S =Sister,GM=Grandmother,GF=Gran dfather,A=Aunt,U= Unc le) Do you have a family history of any of the following conditions? GENERAL: Diabetes Yes f Heart Disease Yes f High Blood Pressure Yes m Thyroid Disease Yes m OCULAR:Cataract (s) No Glaucoma No Macular Degeneration No Blindness No Eye Surgery No Other: Allergy:PROCAINE PMH:DXLS/Procedures DXLS/Procedures First Reported Most Recent Date Resolved Past Medical History : Dec Updated/Additional History : PROBLEM LIST ACTIVE 11 Active Problems PROBLEM LAST MOD PROVIDER HTN - Hypertension 02/24/2021 PRESTON JONES Hyperlipidemia 02/24/2021 PRESTON JONES Rheumatoid arthritis 02/24/2021 PRESTON JONES TIA, Onset 02/24/2021 PRESTON JONES Erectile dysfunction 02/24/2021 PRESTON JONES Benign prostatic hypertrophy without outflow 02/24/2021 PRESTON JONES obstruction H/O: osteoarthritis 02/24/2021 PRESTON JONES S/p Left Knee replacement 01/05/21 Low back pain 02/24/2021 PRESTON JONES Gynecomastia 02/24/2021 PRESTON JONES Bilateral Peptic ulcer disease 02/24/2021 PRESTON JONES Aortic stenosis, non-rheumatic 07/08/2023 PRESTON JONES PROBLEM LIST INACTIVE No data available Systemic Meds: Active Outpatient Medications (including Supplies): Active Outpatient Medications Status = 1) SILDENAFIL CITRATE 50MG TAB TAKE ONE TABLET BY MOUTH ACTIVE (S) NEEDED 60 MINUTES BEFORE SEXUAL ACTIVITY (VIAGRA) 90 DAY SUPPLY Indication: FOR ERECTILE DYSFUNCTION Active Non-VA Medications Status = 1) Non-VA AMLODIPINE BESYLATE 10MG TAB 10MG MOUTH ONCE DAILY ACTIVE 2) Non-VA ASPIRIN 81MG EC TAB 81MG MOUTH ONCE DAILY ACTIVE 3) Non-VA CELECOXIB 200MG CAP 200MG MOUTH TWICE A DAY ACTIVE 4) Non-VA FAMOTIDINE TAB MOUTH ACTIVE 5) Non-VA FERROUS SULFATE 325MG TAB 325MG MOUTH TWICE A DAY ACTIVE 6) Non-VA FLUTICASONE PROP 50MCG 120D NASAL INHL 1 SPRAY EACH ACTIVE NOSTRIL ONCE DAILY 7) Non-VA HYDROCHLOROTHIAZIDE 25MG TAB 25MG MOUTH EVERY MORNING ACTIVE 8) Non-VA HYDROXYCHLOROQUINE SULFATE 200MG TAB 200MG MOUTH ONCE ACTIVE DAILY 9) Non-VA LISINOPRIL 40MG TAB 40MG MOUTH ONCE DAILY ACTIVE 10) Non-VA LOVASTATIN 40MG TAB 40MG MOUTH EVERY EVENING WITH ACTIVE DINNER 11) Non-VA METHOTREXATE (PF) INJ ACTIVE 12) Non-VA PREDNISONE 5MG TAB 2.5MG MOUTH EVERY MORNING ACTIVE 13 Total Medications O: VA With OD 20/25 OS 20/25 Glasses OD:+1.25+1.19C817 OS:+1.75+1.53G455 Add:+2.50 Keratometry: OD: 41.50/42.75 @ 165 OS: 41.25/42.75 @ 177 TA@ 0926 OD: 18 mm Hg OS: 15 mm Hg Conf:Full EOM: Full Cover Test: Ortho Pupils: no APD /es/ NOEMI [facility] [employer] Lead Ads Marketing Optometry Signed: 01/13/2025 09:31 01/13/2025 ADDENDUM STATUS: COMPLETED Neuro: Oriented: AO x 3 Affect: Normal HISTORY: Chief complaint:monitor oc health on plaquenil for 5+ years Pupils: PERRL (-) APD Wearing: OD:+0.75+1.88F651 OS:+1.50+1.02Q854 Add:+2.50 Manifest refraction: OD:+0.75+1.51G386 20/20 OS:+1.25+1.63W388 20/20 Add:+2.50 Slit Lamp exam: Lids: derm OU bleph OU Cornea arcus oU OD scar Conj ping OU OD lymphangiectasia nasal Ant Chamber OD deep and quiet OS deep and quiet Iris OD clear OS clear van Herick angle OD 4 OS 4 drops administered: proparacaine OU, 1% tropicamide OU,2.5% phenyl pt ed on side effects of drops Tonometry--Goldmann OD 22 OS 22 time:1008 pt squeezing lids DFE: lens 2 NS OU 1 bob OU vitreous OD pvd OS pvd CD: OD 0.5 OS 0.5 nerves: distinct margins OU macula OD few drusen OS clear (-) CSME OU, (-) macular edema OU posterior pole: OD clear OS clear vessels AV 2/3 OU periphery OD no breaks or detachments OS no breaks or detachments OCT HD OD drusen OS clear no retinopathy VF 10-2 OD few pts OS few pts low reliability OU MD OD -2.39 OS -2.47 Assessment 1.Plaquenil without retinopathy OU 2.Nuclear cataracts OU 3.Presbyopia with hyperopic astigmatism Plan 1.monitor 2.pt ed on cataract 3.Rx given RTC 1 yr/OCT/VF 10-2 /es/ Racheal Holt, OD, HOMEROO Sales Associate Key Holder Signed: 01/13/2025 10:48 [facility]
--- OUTSIDE RECORDS SUMMARY | 2025-03-05 03:05 | XMS_ITS | Continuity of Care Document ---
Author Name [facility] Organization [facility] Care Team Providers Care Conference Service Coordinator Name Role Phone [facility] Unavailable Unavailable Problems Combined list of problems from Department of [facility] and [facility] facilities. It does not include entries that were removed or entered in error. 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/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 [facility] HTN - Hypertension (SCT 16670277) Active Condition [facility] Hyperlipidemia (SCT 17298489) Active Condition [facility] Low Back Pain (SCT 074527352) Active Condition [facility] Peptic ulcer disease Active Condition [facility] Rheumatoid arthritis Active Condition [facility] Diagnosis: ICD-10-CM Z79.899 Other local intermodal truck driver (current) drug therapy Active Diagnosis [facility] Diagnosis: ICD-10-CM Z46.1 Encounter for fitting and adjustment of hearing aid Active Diagnosis [facility] Diagnosis: ICD-10-CM I10 Essential (primary) hypertension Active Diagnosis [facility] Diagnosis: ICD-10-CM H25.13 Age-related nuclear cataract, bilateral Active Diagnosis [facility] Medications Combined list of outpatient medications from Department of Defense and Veterans Affairs facilities.Medications provided include 1) outpatient medications from the last 15 months, and 2) patient-reported medications. Medication Details Route Status Patient Instructions Prescription Expires Prescription Number Last Dispense Date Ordering Provider Order Date Order Qty Source AMLODIPINE BESYLATE 10MG TAB TAKE ONE TABLET BY MOUTH ONCE DAILY ORAL ACTIVE ALIDANYELL 2020 [facility] ASPIRIN 81MG TAB,EC TAKE ONE TABLET BY MOUTH ONCE DAILY ORAL ACTIVE ALIDANYELL 2020 [facility] CELECOXIB 200MG CAP TAKE 1 CAPSULE BY MOUTH TWICE A DAY ORAL ACTIVE DANYELL JONES 2020 [facility] FAMOTIDINE TAB TAKE BY MOUTH ORAL ACTIVE ALIDANYELL 2020 [facility] FERROUS SO4 325MG TAB TAKE ONE TABLET BY MOUTH TWICE A DAY ORAL ACTIVE ALIDANYELL 2022 [facility] FLUTICASONE PROPIONATE 50MCG/SPRAY SOLN,NASAL, 16GM INSTILL 1 SPRAY IN EACH NOSTRIL ONCE DAILY NASAL ACTIVE ALIDANYELL 2020 [facility] HYDROCHLORO THIAZIDE 25MG TAB TAKE ONE TABLET BY MOUTH EVERY MORNING ORAL ACTIVE DANYELL JONES 2020 [facility] HYDROXYCHLO ROQUINE SO4 200MG TAB TAKE ONE TABLET BY MOUTH ONCE DAILY ORAL ACTIVE ALIDANYELL 2020 [facility] LISINOPRIL 40MG TAB TAKE ONE TABLET BY MOUTH ONCE DAILY ORAL ACTIVE DANYELL JONES 2020 [facility] LOVASTATIN 40MG TAB TAKE ONE TABLET BY MOUTH QPM WD ORAL ACTIVE DANYELL JONES 2020 [facility] METHOTREXAT E INJ INJECT ACTIVE DANYELL JONES 2020 [facility] PREDNISONE 5MG TAB TAKE ONE-HALF TABLET BY MOUTH EVERY MORNING ORAL ACTIVE ALIDANYELL 2020 [facility] SILDENAFIL CITRATE 100MG TAB TAKE ONE-HALF TABLET BY MOUTH NEEDED FOR ERECTILE DYSFUNCT ION 60 MINUTES BEFORE SEXUAL ACTIVITY (VIAGRA) 90 DAY SUPPLY ORAL DISCONT INUED (EDIT) 12/06/2025 [id number] DANYELL JONES 2024 9 [facility] SILDENAFIL CITRATE 100MG TAB TAKE ONE-HALF TABLET BY MOUTH NEEDED FOR ERECTILE DYSFUNCT ION 60 MINUTES BEFORE SEXUAL ACTIVITY (VIAGRA) 90 DAY SUPPLY ORAL DISCONT INUED 03/08/2025 [id number] DANYELL JONSE 2023 9 [facility] SILDENAFIL CITRATE 50MG TAB TAKE ONE TABLET BY MOUTH NEEDED FOR ERECTILE DYSFUNCT ION 60 MINUTES BEFORE SEXUAL ACTIVITY (VIAGRA) 90 DAY SUPPLY ORAL SUSPEND ED 01/13/2026 [id number] DANYELL JONES 2024 18 [facility] Allergies, Adverse Reactions, Alerts Combined list of allergies from Department of Defense and Veterans Affairs facilities. It does not include entries that were removed or entered in error. Substance Category Reaction Severity Reaction type Status Date Reported Comments Source LEONID Propensity to adverse reactions to drug (finding) active 02/11/1993 [facility] Immunizations Combined list of available immunizations from the Department of [facility] and [facility] facilities. Immunization Series Date Given Administered By Site Reaction Lot Number CVX Code Drug Seafood Preparer Status Comments Source COVID-19 (PROSimity), MRNA, LNP-S, PF, BELL-SUCROSE, 30 MCG/0.3 ML (AGES 12+ YEARS) 2023 309 complet ed HISTORICA L INFORMATI ON - FROM OTHER REGISTRY, [facility] INFLUENZA, HIGH-DOSE, TRIVALENT, PF 8 2023 135 complet ed HISTORICA L INFORMATI ON - FROM OTHER REGISTRY, [facility] INFLUENZA, ADJUVANTED, QUADRIVALENT, PF 2022 205 complet ed HISTORICA L INFORMATI ON - FROM OTHER REGISTRY, [facility] INFLUENZA, HIGH-DOSE, QUADRIVALENT, PF 7 2022 197 complet ed HISTORICA L INFORMATI ON - FROM OTHER REGISTRY, [facility] RSV, RECOMBINANT, PROTEIN SUBUNIT RSVPREF, ADJUVANT RECONSTITUTED , 0.5 ML, PF 1 2022 303 complet ed HISTORICA L INFORMATI ON - FROM OTHER REGISTRY, [facility] TDAP 1 2022 115 complet ed HISTORICA L INFORMATI ON - FROM OTHER REGISTRY, [facility] INFLUENZA VACCINE, QUADRIVALENT, ADJUVANTED 2021 205 complet ed [facility] COVID-19 (PFIZER), MRNA, LNP-S, PF, 30 MCG/0.3 ML DOSE 3 2021 208 complet ed [facility] COVID-19 (PFIZER), MRNA, LNP-S, PF, 30 MCG/0.3 ML DOSE, BELL-SUCROSE (AGES 12+ YEARS) 4 2021 217 complet ed HISTORICA L INFORMATI ON - FROM OTHER REGISTRY, [facility] ZOSTER RECOMBINANT 2 2020 187 complet ed [facility] ZOSTER RECOMBINANT 2 2020 187 complet ed HISTORICA L INFORMATI ON - FROM OTHER REGISTRY, [facility] INFLUENZA, HIGH-DOSE, QUADRIVALENT 6 2020 197 complet ed HISTORICA L INFORMATI ON - FROM OTHER REGISTRY, [facility] INFLUENZA, UNSPECIFIED FORMULATION 2020 88 complet ed [facility] ZOSTER RECOMBINANT 1 2020 187 complet ed Vaccine record - submitted to scan [facility] ZOSTER RECOMBINANT 1 2020 187 complet ed HISTORICA L INFORMATI ON - FROM OTHER REGISTRY, [facility] COVID-19 (MODERNA), MRNA, LNP-S, PF, 100 MCG/0.5 ML DOSE 2 2020 207 complet ed [facility] COVID-19 (MODERNA), MRNA, LNP-S, PF, 100 MCG/0.5ML DOSE OR 50 MCG/0.25ML DOSE 2 2020 207 complet ed HISTORICA L INFORMATI ON - FROM OTHER REGISTRY, [facility] COVID-19 (MODERNA), MRNA, LNP-S, PF, 100 MCG/0.5 ML DOSE 1 2020 207 complet ed [facility] INFLUENZA, HIGH-DOSE, QUADRIVALENT 5 2019 197 complet ed HISTORICA L INFORMATI ON - FROM OTHER REGISTRY, [facility] INFLUENZA, UNSPECIFIED FORMULATION 2019 88 complet ed [facility] INFLUENZA, INJECTABLE, MDCK, QUADRIVALENT 4 2018 186 complet ed HISTORICA L INFORMATI ON - FROM OTHER REGISTRY, [facility] INFLUENZA, INJECTABLE, MDCK, PRESERVATIVE FREE, QUADRIVALENT 3 2017 171 complet ed HISTORICA L INFORMATI ON - FROM OTHER REGISTRY, [facility] INFLUENZA, INJECTABLE, MDCK, PRESERVATIVE FREE, QUADRIVALENT 2 2017 171 complet ed HISTORICA L INFORMATI ON - FROM OTHER REGISTRY, [facility] INFLUENZA, SEASONAL, INJECTABLE, PRESERVATIVE FREE 1 2015 140 complet ed HISTORICA L INFORMATI ON - FROM OTHER REGISTRY, [facility] TDAP 2014 115 complet ed [facility] PNEUMOCOCCAL CONJUGATE PCV 13 2013 133 complet ed received and to be scanned [facility] PNEUMOCOCCAL POLYSACCHARID E PPV23 2011 33 complet ed [facility] Vital Signs Combined list of inpatient and outpatient Vital Signs from Department of Defense and Veterans Affairs, ranging from 12 months to all on record, depending upon the facility. Vital Sign Value Date Comments Source SYSTOLIC BLOOD PRESSURE 136 11/13/2024 11:39:47 [facility] DIASTOLIC BLOOD PRESSURE 72 11/13/2024 11:39:47 [facility] PULSE OXIMETRY 99 11/13/2024 11:39:47 [facility] PULSE 77 11/13/2024 11:39:47 [facility] RESPIRATION 18 11/13/2024 11:39:47 [facility] PAIN 4 07/06/2024 09:30:00 [facility] Encounters Combined list of: 1) Encounters from Department of Veterans Affairs facilities going backup to the last 18 months, not all [place] inpatient encounters are included; 2) Encounters from the Department of [facility] facilities going backup to 280 months. Location Location Details Encounter Type Encounter Number Reason For Visit Attending Provider ADM Date DC Date Status Disposition Source [facility] [place] 1 [id number] Diagnos is: ICD-10- CM H25.13 Age-rel ated nuclear catarida tkathrin HEID I M 01/20 [facility] Outpatient Encounter [id number] MAMI CAMACHO JR 03/05 [facility]NOTE 3] Outpatient Encounter [id number] 03/06 [facility] HEARING AID REPAIR/MOD IFYING [id number] Diagnos is: ICD-10- CM Z46.1 Encount er for fitting and adjustm ent of hearing aid Stephanie PICKETTIsma Reynolds 05/05 [facility] Outpatient Encounter [id number] 06/18 [facility][NOTE 3] Outpatient Encounter [id number] 06/21 [facility] OFFICE O/P EST HI 40 MIN [id number] Diagnos is: ICD-10- CM I10 Essenti al (primar y) hyperte nskeisha JONESPRESTON MALACHI 07/06 [facility] HEARING AID REPAIR/MOD IFYING [id number] Diagnos is: ICD-10- CM Z46.1 Encount er for fitting and adjustm ent of hearing aid Stephanie PICKETT ODALIS Reynolds 09/03 [facility] OFF/OP EST MAY X REQ PHY/QHP [id number] Diagnos is: ICD-10- CM I10 Essenti al (primar y) hyperte Gail Jackson 11/13 [facility] OFF/OP EST MAY X REQ PHY/QHP [id number] Diagnos is: ICD-10- CM I10 Essenti al (primar y) hyperte nsion Gail CAMERON 11/13 [facility] HEARING AID FITTING/CH ECKING [id number] Diagnos is: ICD-10- CM Z46.1 Encount er for fitting and adjustm ent of hearing aid JOSH LOPEZ 11/24 [facility] Outpatient Encounter [id number] 12/04 [facility] CPTRZ OPH DX IMG PST SGM RTA [id number] Diagnos is: ICD-10- CM Z79.899 Other prison (curren t) drug therapy PRASHANTH YEHREE Parada 01/13 [facility] Social History Combined list of available smoking, tobacco, and other social history from Department of Defense and Veterans Affairs facilities. Social History Type Response Date Comment Sourc e Tobacco smoking status NHIS [facility] FOR[facility] 07/06/2024 [facility] of [facility]24 [facility] [place] of tobacco use [place] FOR[place] 07/08/2023 [facility] History of tobacco use [place] FORMER US[place] 07/11/2022 [facility] History of tobacco use [place] NEVER USED 02/24/2021 [facility] Plan of Care List of future care activities from Department of [facility] Affairs facilities. Additional future care activities may be listed in the Assessment and Plan section. Date/Time Care Activity Care Activity Detail Facili ty 06/28/2025 AMBULATORY - MEDICINE AMBULATORY - MEDICI NE [facility]
--- OUTSIDE RECORDS SUMMARY | 2025-03-05 08:09 | XMS_ITS | Encounter Summary ---
Author Organization [employer] tem Address [id number] [address] [place] [address] Care Team Providers Care Home Inspector Name Role Phone Cleo Espinoza APRN-CERTIFIED REHABILITATION COUNSELOR Primary Care Provid er Reason for Referral * Diagnostic Imaging (Routine) - Pending Review Specialty Diagnoses / Procedures Referred By Majo damian Referred To Contact Diagnoses Other specified mononeuropathies of bilateral lower limbs Procedures Fluoroscopy less than one hour Vinicius Tellez MD [address] [place] [address] Phone: tel: fax: Referral ID Status Reason Start Date Expiration Date V isits Requested Visits Authorized [id number] Pending Review 03/02/2025 03/02/2026 1 1 Reason for Visit * Auth/Cert Specialty Diagnoses / Procedures Referred By Majo damian Referred To Contact Diagnoses 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] Procedures WI DESTRUCT BY NEURO AGENT; OTHER PERIPH NERVE RADIOFREQUENCY ABLATION PERIPHERAL NERVE ; Right Cluneal Vinicius Tellez MD [address] [place] [address] Phone: tel: fax: Referral ID Status Reason Start Date Expiration Date Visits Re quested Visits Authorized [id number] 1 1 Encounter Details Date Type Department Care Team (Latest Contact Info) Description 03/05/2025 8:09 AM EDT - 03/05/2025 8:16 AM EDT Hospital Encounter [facility] - Radiology [address] [place] [phone] Vinicius Tellez MD [address] [place] [address] Other specified mononeuropathies of bilateral lower limbs Discharge Disposition: Home Social History Tobacco Use Types Packs/Day Years Used Date Smoking Tobacco: Former Cigarettes Q uit: 2002 Smokeless Tobacco: Never Alcohol Use Standard Drinks/Week Comments No 0 (1 standard drink = 0.6 oz pur e alcohol) [facility] Utilities Answer Date Recorded In the past 12 months has e electric, gas, oil, or water [employer] threatened to shut off services in your home? No 01/29/2025 Social Connection and Isolat ion Panel [NHANES] Answer Date Recorded In a typical week, how many times do you talk on the phone with family, friends, or neighbors? More than three times a week 01/29/2025 How often do you get togethe r with friends or relatives? Once a week 01/29/2025 How often do you attend chur ch or christian services? More than 4 times per year 01/29/2025 Do you belong to any clubs o r organizations such as mandaeism groups, unions, fraternal or athletic groups, or school groups? No 01/29/2025 How often do you attend meet ings of the clubs or organizations you belong to? Never 01/29/2025 Are you , , di vorced, , never , or living with a partner? 01/29/2025 AUDIT-C Answer Date Recorded Q1: How often do you have a drink containing alcohol? Never 01/29/2025 Q2: How many drinks containi ng alcohol do you have on a typical day when you are drinking? Patient does not drink Q3: How often do you have si x or more drinks on one occasion? Never 01/29/2025 Overall Financial Resource Strain (CARDIA) Answe r Date Recorded How hard is it for you to pa y for the very basics like food, housing, medical care, and heating? Not hard at all 01/29/2025 PHQ-2 Answer Date Recorded Total Score 0 02/03/2025 [facility] - Occupational Stress Questionnaire Answer Date Recorded Do you feel stress - tense, restless, nervous, or anxious, or unable to sleep at night because your mind is troubled all the time - these days? Not at all 01/29/2025 Exercise Vital Sign Answer Date Recorde d On average, how many days pe r week do you engage in moderate to strenuous exercise (like a brisk walk)? 0 days 01/29/2025 On average, how many minutes do you engage in exercise at this level? 0 min 01/29/2025 PRAPARE - Transportation Answer Date Re corded In the past 12 months, has l ack of transportation kept you from medical appointments or from getting medications? No 01/19 In the past 12 months, has l ack of transportation kept you from meetings, work, or from getting things needed for daily living? No 01/29/2025 Housing Instability Answer Date Recorde d Are you worried or concerned that in the next two months you may not have stable housing that you own, rent or stay in as a part of a household? No 01/29/2025 Childcare Answer Date Recorded Do problems getting child ca re make it difficult for you to work or study? No 01/29/2025 Employment Answer Date Recorded Do you need help finding a [facility] career center and/or a training program? No 01/29/2025 Hunger Screening Answer Date Recorded Within the past 12 months we worried whether our food would run out before we got money to buy more. Never True 02/03/2025 Within the past 12 months th e food we bought just didn't last and we didn't have money to get more. Never True 02/03/2025 Purpose - Life Answer Date Recorded I have a purpose and direction in my life. Stron gly Agree 01/29/2025 Sex and Gender Information Value Date Recorded Sex Assigned at Not on file Legal Sex Male 11:32 AM EDT Gender Identity Not on file Sexual Orientation Not on file documented as of this encounter Medications at Time of Discharge acetaminophen (TYLENOL EXTRA STRENGTH) 500 mg tablet Take 1 tablet (500 mg total) by mouth every 6 (six) hours as needed for pain. amLODIPine (NORVASC) 5 mg tablet Take 1 tablet by mouth nightly 90 tablet 2 02/08/2025 aspirin 81 mg Take 1 tablet (81 mg total) by mouth in the morning. 30 tablet 1 11/02/2022 fluticasone propionate (FLONASE) 50 mcg/actuation nasal spray Administer 2 sprays into each nostril in the morning. 16 g 11 12/13/2022 menthol-zinc oxide (CALMOSEPTINE) 0.44-20.6 % ointmentIndications :Pressure ulcer of sacral region, stage 1 Apply 1 Application topically 2 (two) times a day as needed (apply to buttocks). 71 g 6 07/23/2023 omeprazole (PriLOSEC) 20 mg capsule Take 1 capsule (20 mg total) by mouth in the morning. tadalafiL (CIALIS) 20 mg tabletIndications:O ther male erectile dysfunction Take 1 tablet (20 mg total) by mouth daily as needed for erectile dysfunction. 90 tablet 1 09/15/2024 atorvastatin (LIPITOR) 10 mg tabletIndications:M ixed hyperlipidemia Take 1 tablet (10 mg total) by mouth in the morning. 90 tablet 2 02/03/2025 03/09/20 25 hydroCHLOROthiazide (HYDRODIURIL) 25 mg tabletIndications:E ssential hypertension TAKE 1 TABLET EVERY DAY 90 tablet 1 09/09/2024 03/09/20 25 hydroxychloroquine (PLAQUENIL) 200 mg tabletIndications:R heumatoid arthritis involving multiple joints (CMS-HCC) Take 1 tablet (200 mg total) by mouth in the morning and 1 tablet (200 mg total) before bedtime. 180 tablet 1 09/09/2024 03/09/20 25 meloxicam (MOBIC) 15 mg tabletIndications:C hronic right shoulder pain Take 1 tablet (15 mg total) by mouth in the morning. 90 tablet 1 09/09/2024 03/09/20 25 predniSONE (DELTASONE) 5 mg tabletIndications:R heumatoid arthritis involving multiple joints (CMS-HCC) Take 1 tablet by mouth once daily 90 tablet 09/09/2024 03/09/20 25 documented as of this encounter Plan of Treatment Upcoming Encounters Date Type Department Care Team (Late st Contact Info) Description 06/09/2025 9:40 AM EDT Office Visit [facility] Internal Medicine - Family Medicine [address] [place] [phone] Cleo Espinoza, IMPORT EXPORT CLERK-CERTIFIED REHABILITATION COUNSELOR [address] [place] [phone] 06/30/2025 8:15 AM EDT Office Visit [facility] - Pain Management Clinic [address] [place] [phone] Carly Cole, PATatiC [address] [place], [place] [phone] 02/01/2026 1:00 PM EDT Office Visit [facility] [address] [place] [address] [place] [address] [phone] Nadir Herman MD [address] [place] [address] 03/17/2026 8:30 AM EDT Office Visit Bina Brown [facility] - Medical Oncology [address] [place] [phone] Magan Katz MD [address] [place] [address] [address] [place] [phone] documented as of this encounter Procedures Procedure Name Priority Date/Time Associated Diagnosis Comments FL FLUOROSCOPY UP TO 1 HOUR Routine 03/05/2025 8:45 AM EDT Other specified mononeuropathies of bilateral lower limbs documented in this encounter Results * Fluoroscopy less than one hour (03/05/2025 8:45 AM EDT) Narrative SYSTEMGENERATED, DOCUMENTATION - 03/05/2025 8:45 AM EDT No Reading Required. This procedure does not require a formal dictation. Non-Radiologist provider performed procedures can be reviewed under Post-Op, Procedure or Progress notes. For full report details, please reach out to your physician. Effective 03/07/2021 this image will be visible to you in MyChart. us Vinicius Tellez MD IMG FLUOROSCOPY ORDERABLES Fi nal Result documented in this encounter Visit Diagnoses Diagnosis Other specified mononeuropathies of bilateral lower limbs documented in this encounter Additional Health Concerns Assessment Noted Time PHQ-9 Depression Total Score: 0 02/04/20 25 10:08 AM EDT A Body Mass Index follow-up plan has been documented for the patient 09/09/2024 9:51 AM EST documented as of this encounter Care Teams Home Inspector Relationship Specialty Start Date End Date Cleo Espinoza, IMPORT EXPORT CLERK-CERTIFIED REHABILITATION COUNSELOR [address] [place] [address] PCP - General Family Medicine 12/26/22 documented as of this encounter
--- OUTSIDE RECORDS SUMMARY | 2025-03-05 08:17 | XMS_ITS | Encounter Summary ---
Author Organization [facility] tem Address [id number] [address] 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] Procedures AZ DESTRUCT BY NEURO AGENT; OTHER PERIPH NERVE RADIOFREQUENCY ABLATION PERIPHERAL NERVE ; Right Cluneal Vinicius Tellez MD [address] [place] [address] Phone: tel: fax: Referral ID Status Reason Start Date Expiration Date Visits Re quested Visits Authorized [id number] 1 1 Encounter Details Date Type Department Care Team (Latest Contact Info) Description 03/05/2025 8:17 AM EDT - 03/05/2025 11:59 PM EDT Hospital Encounter [facility] - Pain Procedures [address] [place] [address] Vinicius Tellez MD [address] [place] [address] Discharge Disposition: Home Social History Tobacco Use Types Packs/Day Years Used Date Smoking Tobacco: Former Cigarettes Q uit: 2002 Smokeless Tobacco: Never Alcohol Use Standard Drinks/Week Comments No 0 (1 standard drink = 0.6 oz pur e alcohol) [facility] Utilities Answer Date Recorded In the past 12 months has th e electric, gas, oil, or water company threatened to shut off services in your [...] often do you attend chur ch or roman catholic services? More than 4 times per year 01/29/2025 Do you belong to any clubs o r organizations such as confucianism groups, unions, fraternal or athletic groups, or [...] Answer Date Recorded Total Score 0 02/03/2025 [facility] - Occupational Stress Questionnaire Answer Date Recorded [...] Recorded Do you need help finding a [facility] career center and/or a training [...] on file documented as of this encounter Last Filed Vital Signs Vital Sign Reading Time Taken Comments Blood Pressure 139/53 03/05/2025 8:54 AM EDT Pulse 68 03/05/2025 8:54 AM EDT Temperature 37 C (98.6 F) 03/05/2025 8:25 AM EDT Respiratory Rate 20 03/05/2025 8:54 AM EDT Oxygen Saturation 98% 03/05/2025 8:54 AM EDT Inhaled Oxygen Concentration - - Weight - - Height - - Body Mass Index - - documented in this encounter Discharge Instructions * Discharge Instructions* Kim Khan RN - 03/05/2025 8:18 AM EDT Radiofrequency Ablation (RFA) Radiofrequency ablation (or RFA) is a procedure used to reduce pain. An electrical current producedby a radio wave is used to heat up a small area of nerve tissue, thereby decreasing pain signals from that specific area. Which Conditions Are Treated With Radiofrequency Ablation? RFA can be used to help patients with chronic (long-lasting) back and neck pain and pain related tothe degeneration of joints from arthritis. How Long Does Pain Relief from Radiofrequency Ablation Last? The degree of pain relief varies, depending on the cause and location of the pain. Pain relief fromRFA can last from six to 12 months and in some cases, relief can last for years. More than 70% of patients treated with RFA experience pain relief. Is Radiofrequency Ablation Safe? RFA has proven to be a safe and effective way to treat some forms of pain. It also is generally well-tolerated, with very few associated complications. There is a slight risk of infection and bleeding at the insertion site. Your doctor can advise you about your particular risk. Can I Resume My Normal Activities After Radiofrequency Ablation? You will have a few restrictions immediately following radiofrequency ablation: If you had sedation, do not drive or operate machinery for at least 24 hours after the procedure. You may resume your normal diet and prescribed medications (including blood thinners) when you get home. Do not engage in any strenuous activity for the first 24 hours after the procedure. You may remove any bandages in the evening before going to bed. You may experience the following effects after RFA: Extremity numbness: If you have any leg numbness, walk only with assistance. This should only last a few hours and is due to the local anesthesia given during the procedure. Mild back discomfort: This may occur when the local anesthetic wears off and usually lasts two or three days. Apply heat to the area the day of the procedure and the day after the procedure. You may also use your usual pain medications and NSAID medications such as ibuprofen, naproxen, Aleve, Motrin, etc. if you are able. Expectations: Results will be gradual. It may take 3-4 weeks for full relief. If you feel severe pain at the injection site with swelling and redness, increased leg weakness, a fever of 101 or higher, headache (or worsening headache), changes in vision or urinary retention: Please call the office at , or have someone take you to the nearest emergency room. Tellthe emergency room staff that you just had RFA. A doctor must evaluate you for bleeding and injection complications. If you lose control over bowel, bladder, or legs: Go to the nearest emergency room. If you are diabetic, the steroids used in this procedure can increase your blood sugar. If your blood sugar is 250mg/dL or higher, contact your primary care physician, or the doctor who manages your diabetes, to discuss how to get it back to normal. documented in this encounter Medications at Time of Discharge [...] 03/09/20 25 documented as of this encounter H&P Notes * Vinicius Tellez MD - 03/05/2025 8:17 AM EDT HISTORY AND PHYSICAL INTERVAL NOTE: Dean Nieto 1945 [id number] H&P reviewed. The patient was examined and there are no changes to the H&P. Vinicius Tellez Jr, MD Source Note - Cleo Espinoza APRN-WIND SITE MANAGER - 02/03/2025 10:00 AM EDT Subjective Patient ID: Dean Nieto is a 79 y.o. male. The patient is here today for discharge follow up from hospital. Transition of Care Med Rec completed? Yes Discharged medications: Medications have been reviewed and reconciled with the most recent facilitydischarge document. He was preparing to have RFA with sedation at pain management. While being prepped for the procedure,. he stopped answering questions and did not seem to be able to speak for several minutes. He taken down to the ER for evaluation. When he arrived to the ER, he returned to his baseline (per patient). He was subsequently admitted for 23 hour observation. Patient states today he did not feel well that morning but thought it was because he was fasting. States he felt numbness of his lower extremities that morning. This has resolved as well. He currently states he is feeling fine today. Offers no concerns. The following portions of the patient's history were reviewed and updated as appropriate: allergies, current medications, past family history, past medical history, past social history, past surgicalhistory, problem list, and medication reconciliation was completed including current medication andpost discharge medication. Review of Systems Constitutional: Negative for chills, fatigue and fever. HENT: Negative for hearing loss and trouble swallowing. Eyes: Negative for pain and visual disturbance. Respiratory: Negative for cough, chest tightness and shortness of breath. Cardiovascular: Negative for chest pain, palpitations and leg swelling. Gastrointestinal: Negative for blood in stool. Endocrine: Negative for polydipsia, polyphagia and polyuria. Genitourinary: Negative for difficulty urinating, dysuria, flank pain, hematuria, scrotal swelling and testicular pain. Musculoskeletal: Positive for arthralgias. Skin: Negative. Allergic/Immunologic: Negative. Neurological: Negative for seizures, syncope and headaches. Hematological: Does not bruise/bleed easily. Psychiatric/Behavioral: Negative. Vitals: 02/03/25 1010 BP: 138/50 Pulse: 65 Resp: 16 Temp: 36.4 ??C (97.5 ??F) SpO2: 98% Narrative & Impression MRI brain: HISTORY: Mental status changes. Slurred speech. Evaluate CVA. Multisequence multiplanar imaging of the brain was obtained utilizing a routine protocol and compared to prior exam dated November 02, 2022. The diffusion- weighted images and ADC map show no evidence of acute intracranial ischemia or appreciable diffusion restriction. Ventricles are normal in caliber. White matter signal characteristics appear appropriate. No cortical signal characteristic abnormality. Flow-voids are normal in caliber and contour. The paranasal sinuses and mastoid air cells are clear. No mass, midline shift, or evidence of vasogenic edema. Orbits appear symmetric. Cerebellar tonsils are normal position. IMPRESSION: No acute intracranial findings. Finalized by Ricky Collins MD on 01/29/2025 12:36 PM Narrative & Impression CT CTA CAROTID CLINICAL HISTORY: ams, stroke alert. COMPARISON: 11/01/2022. TECHNIQUE: Axial CT images were obtained through the neck following the uneventful administration of intravenous contrast. Sagittal and coronal reformatted images were performed. MIP and volume rendered images were also post processed at a separate workstation to further define anatomy and potential pathology. 100 mL of Omnipaque 350 intravenous contrast without complication. Degree of luminal narrowing characterized using NASCET criteria. Hemodynamically significant stenosis characterized as moderate or greater (>50%) narrowing. FINDINGS: Aortic arch: Normal caliber. Normal three-vessel arch. Brachiocephalic artery: Patent. Normal caliber. Right subclavian artery: Patent. Normal caliber. Right common carotid artery: Patent. Normal caliber. Left common carotid artery: Patent. Normal caliber. Left subclavian artery: Patent. Normal caliber. Carotid bifurcations: Calcifications without significant flow-limiting stenosis. Right internal carotid artery: Patent. Calcifications within the cavernous canal without significant flow limiting stenosis. Left internal carotid artery: Patent. Calcifications within the cavernous canal without significantflow limiting stenosis. 1.7 mm medially directed outpouching presumed infundibulum at the origin ofa otherwise hypoplastic P-comm. Vertebral arteries: Patent. IMPRESSION: 1. No acute arterial occlusion, dissection. 2. CT Brain and CTA head findings dictated separately. All CT scans at this facility use dose modulation, iterative reconstruction, and/or weight based dosing when appropriate to reduce radiation dose to as low as reasonably achievable. Finalized by Shelton Cabrera on 01/29/2025 9:21 AM Objective Physical Exam Vitals and nursing note reviewed. Constitutional: General: He is not in acute distress. Appearance: He is well-developed. HENT: Head: Normocephalic and atraumatic. Right Ear: Tympanic membrane and external ear normal. Left Ear: Tympanic membrane and external ear normal. Nose: Nose normal. Mouth/Throat: Mouth: Mucous membranes are moist. Pharynx: No oropharyngeal exudate. Eyes: General: No scleral icterus. Right eye: No discharge. Left eye: No discharge. Conjunctiva/sclera: Conjunctivae normal. Pupils: Pupils are equal, round, and reactive to light. Neck: Vascular: No JVD. Cardiovascular: Rate and Rhythm: Normal rate and regular rhythm. Heart sounds: Murmur heard. No friction rub. No gallop. Pulmonary: Effort: Pulmonary effort is normal. No respiratory distress. Breath sounds: Normal breath sounds. Chest: Chest wall: No tenderness. Abdominal: General: Bowel sounds are normal. There is no distension. Palpations: Abdomen is soft. There is no mass. Tenderness: There is no abdominal tenderness. There is no guarding or rebound. Hernia: No hernia is present. Musculoskeletal: General: No tenderness. Normal range of motion. Cervical back: Normal range of motion and neck supple. Lymphadenopathy: Cervical: No cervical adenopathy. Skin: General: Skin is warm and dry. Capillary Refill: Capillary refill takes less than 2 seconds. Findings: No rash. Neurological: Mental Status: He is alert and oriented to person, place, and time. Deep Tendon Reflexes: Reflexes are normal and symmetric. Psychiatric: Mood and Affect: Mood normal. Behavior: Behavior normal. Thought Content: Thought content normal. Judgment: Judgment normal. Assessment/Plan Silvano was seen today for fell ill while having a fusion and stubbed his toes. Diagnoses and all orders for this visit: Other specified mononeuropathies of bilateral lower limbs Obesity, morbid (CMS-HCC) Mixed hyperlipidemia - atorvastatin (LIPITOR) 10 mg tablet; Take 1 tablet (10 mg total) by mouth in the morning. Reviewed ER notes and hospital stay. MRI brain was done, which was normal, no acute findings. Recommendation from hospitalized patient should start a statin. New orders today for atorvastatin 10 mg oral daily. Denies any reoccurrence of symptoms. May resume proceeding to have RFA lumbar procedure with sedation. Body mass index is 28.77 kg/m??. Patient noted to have elevated BMI and the following intervention(s) were applied: Discussed current weight today. Consider healthy food choices, portion control. Avoid sugary beverages and high concentrated sweets. Routine exercise regimen encouraged. PALOMO Ramos 02/03/25 1234 PALOMO Ramos 03/05/25 0835 documented in this encounter Miscellaneous Notes * Op Note - Vinicius Tellez MD - 03/05/2025 8:37 AM EDT RadioFrequency Ablation of the Cluneal Nerves Procedure Performed by: Vinicius Tellez M.D. 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 The patient was escorted to the procedure room and placed in the prone position. A pre-procedure time out was conducted verifying patient name, site, and side of the procedure as well as any contraindications which there were none. The area of the posterior iliac crest and sacrum was prepped with chloroprep and draped in usual sterile fashion. Fluoroscopy was used to identify the landmarks including 3 sites of the cluneal nerves along the entire course of the posterior iliac crest. Skin and subcutaneous tissues immediately overl fay these areas were superficially anesthetized with 2% Lidocaine. A 20 gauge insulated needle with an active tip was then passed atraumatically to the primary target at each site using intermittentfluoroscopy. Placement was confirmed in the PA projection. Then intraoperative stimulation was conducted for motor at 2 hertz up to 3 volts. The patient was awake for the testing and did not experience any motor or sensory stimulation into the lower extremity. A dose of 0.5 milliliters of 2% lidocaine was injected at each site, then a radiofrequency bipolar lesion was performed between each site at 80 degrees for 2.5 minutes. At this point a total of 40mg of Triamcinolone was equally divided and injected at the injection sites. The procedure was concluded with withdrawal of the needles and the patient was escorted to the recovery area in stable condition having tolerated the procedure well.The patient will follow-up as scheduled. documented in this encounter Plan of Treatment Upcoming Encounters Date Type Department Care Team (Late st Contact Info) Description 06/09/2025 9:40 AM EDT Office Visit [facility] - Family Medicine [address] [phone] Cleo Espinoza, TEAROOM HOSTESS-WIND SITE MANAGER [address] [place] [phone] 06/30/2025 8:15 AM EDT Office Visit [facility] [address] [place] [phone] Carly Cole, PA-C [address] [place] [address] 02/01/2026 1:00 PM EDT Office Visit [facility] [address] [place] [address] [place] [address] [place] [phone] Nadir Herman MD [address] [place] [address] 03/17/2026 8:30 AM EDT Office Visit [facility] Oncology [address] [place] [address] Magan Katz MD [address] [facility] [address] [place] [phone] documented as of this encounter Procedures Procedure Name Priority Date/Time Associated Diagnosis Comments AZ DESTRUCT BY NEURO AGENT; OTHER PERIPH NERVE 03/05/2025 8:36 AM EDT Other specified mononeuropathies of bilateral lower limbs documented in this encounter Visit Diagnoses Not on filedocumented in this encounter Administered Medications Inactive Administered Medications - up to 3 most recent administrations Medication Order MAR Action Action Date Dose Rate Site sodium chloride 0.9 % infusion 15 mL/hr, intravenous, Continuous, Starting on Sat03/05/25 at 0830, Pre-op Continued by Anesthesia 03/05/2025 8:37 AM EDT 15 mL/hr New Bag 03/05/2025 8:27 AM EDT 15 mL/hr 15 mL/hr documented in this encounter Additional Health Concerns Assessment Noted Time PHQ-9 Depression Total Score: 0 02/04/20 10:08 AM EDT A Body Mass Index follow-up plan has been documented for the patient 09/09/2024 9:51 AM EST documented as of this encounter Care Teams Tenterer Relationship Specialty Start Date End Date Cleo Espinoza, TEAROOM HOSTESS-WIND SITE MANAGER [address] [place] [address] PCP - General Family Medicine 12/26/22 documented as of this encounter
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
--- OUTSIDE RECORDS SUMMARY | 2025-03-09 09:40 | XMS_ITS | Encounter Summary ---
Author Organization [facility] Sys tem Address [id number] [address] [place] [address] Care Team Providers Care Turkey Roll Maker Name Role Phone Cleo Espinoza Primary Care Provid er Reason for Visit * Reason Comments Hypertension Encounter Details Date Type Department Care Team (Late st Contact Info) Description 03/09/2025 9:40 AM EDT [facility] - [facility] Medicine [address] [place] [phone] Cleo Espinoza APRN-WOOL BUYER [address] [place] [address] Rheumatoid arthritis involving multiple joints (CMS-HCC); Chronic right shoulder pain; Essential hypertension Social History Tobacco Use Types Packs/Day Years Used Date Smoking Tobacco: Former Cigarettes Q uit: 2002 Smokeless Tobacco: Never Alcohol Use Standard Drinks/Week Comments No 0 (1 standard drink = 0.6 oz pur e alcohol) [facility] Utilities Answer Date Recorded In the past 12 months has [email or web address] electric, gas, oil, or water company threatened [...] week 01/29/2025 How often do you attend [facility] or baptism services? More than 4 times per year 01/29/2025 Do you belong to any clubs o r organizations such as cheondoism groups, unions, fraternal or athletic groups, or [...] PHQ-2 Answer Date Recorded Total Score 0 03/09/2025 [facility] - Occupational Stress [...] Recorded Do you need help finding a [facility] career center and/or a training program? No 01/29/2025 Hunger Screening Answer Date Recorded Within the past 12 months we worried whether our food would run out before we got money to buy more. Never True 03/09/2025 Within the past 12 months th e food we bought just didn't last and we didn't have money to get more. Never True 03/09/2025 Purpose - Life Answer Date Recorded I [...] Sign Reading Time Taken Comments Blood Pressure 128/60 03/09/2025 9:34 AM EDT Pulse 77 03/09/2025 9:34 AM EDT Temperature 36.3 C (97.3 F) 03/09/2025 9:34 AM EDT Respiratory Rate 20 03/09/2025 9:34 AM EDT Oxygen Saturation 99% 03/09/2025 9:34 AM EDT Inhaled Oxygen Concentration - - Weight 88.2 kg (194 lb 6.4 oz) 03/09/2025 9:34 A M EDT Height 172.7 cm (5' 7.99 ) 03/09/2025 9:34 AM ED T Body Mass Index 29.57 03/09/2025 9:34 AM EDT documented in this encounter Patient Instructions * Attachments The following attachments cannot be sent through Care Everywhere. * High blood pressure in adults (Scottish) documented in this encounter Progress Notes * Cleo Espinoza APRN-WOOL BUYER - 03/09/2025 9:40 AM EDT Images from the original note were not included. [address] [place] [address] SUBJECTIVE: Patient ID: Dean Nieto is a 79 y.o. male. Chief Complaint Patient presents with Hypertension Presents for follow up States he stopped his statin due to muscle aches and loose stools. He tried every other day but no relief. States he has been going to pain management for chronic pain, he relates they are miracle workers . He has been having relief. Hypertension This is a chronic problem. The current episode started more than 1 year ago. The problem is controlled. Pertinent negatives include no chest pain, headaches, palpitations or shortness of breath. There are no associated agents to hypertension. Risk factors for coronary artery disease include dyslipidemia. Past treatments include calcium channel blockers. The current treatment provides significant improvement. There are no compliance problems. Hyperlipidemia This is a chronic problem. The current episode started more than 1 year ago. Recent lipid tests were reviewed and are variable. Exacerbating diseases include obesity. There are no known factors aggravating his hyperlipidemia. Pertinent negatives include no chest pain or shortness of breath. Treatments tried: Patient stopped atorvastatin due to side effects. The following portions of the patient's history were reviewed and updated as appropriate: allergies, current medications, past family history, past medical history, past social history, past surgicalhistory and problem list. Past Surgical History: Procedure Laterality Date ARTHROSCOPY KNEE chondroplsty medial femoral condyle. partial medial menisectomy, evacuation of multiple joint mice Left 02/17/2019 Performed by Tyler Ramirez Jr., DO at [facility] COLONOSCOPY 2013 COLONOSCOPY N/A 07/20/2020 Performed by Johnie Rain DO at [facility] COLONOSCOPY N/A 07/24/2017 Performed by Johnie Rain DO at [facility] COLONOSCOPY DIAGNOSTIC / SCREENING N/A 01/15/2024 Performed by Johnie Rain DO at [facility] EGD N/A 07/20/2020 Performed by Johnie Rain DO at [facility] FRACTURE SURGERY Right ankle HERNIA REPAIR INJECTION BLOCK NERVE Bilat Cluneal Bilateral 06/21/2023 Performed by Vinicius Tellez MD at [facility] BLOCK NERVE MEDIAL BRANCH Right L 4/5,5/1 Right 01/18/2023 Performed by Vinicius Tellez MD at [facility] BLOCK NERVE MEDIAL BRANCH Right L 4/5,5/1 Right 10/26/2022 Performed by Vinicius Tellez MD at [facility] INJECTION MEDIAL BRANCH NERVE BLOCK Left L 4/5, 5/1 Left 03/04/2020 Performed by Vinicius Tellez MD at [facility] MEDIAL BRANCH NERVE BLOCK: left L45 51mbb Left 12/18/2019 Performed by Vinicius Tellez MD at [facility] INJECTION SACROILIAC NERVE Left 09/02/2020 Performed by Vinicius Tellez MD at [facility] INJECTION SI JOINT Bilateral SI Joint Bilateral 11/11/2020 Performed by Vinicius Tellez MD at [facility] INJECTION SPINE TRANSFORAMINAL Right C 6,7 Nroot Right 05/19/2021 Performed by Vinicius Tellez MD at [facility] RADIO FREQUENCY ABLATION Left L 4/5/, 5/1 Left 07/29/2020 Performed by Vinicius Tellez MD at [facility] RADIOFREQUENCY ABLATION PERIPHERAL NERVE Left Cluneal Left 02/12/2025 Performed by Vinicius Tellez MD at [facility] RADIOFREQUENCY ABLATION PERIPHERAL NERVE Left Cluneal Left 09/20/2023 Performed by Vinicius Tellez MD at [facility] RADIOFREQUENCY ABLATION PERIPHERAL NERVE Right Cluneal Right 03/05/2025 Performed by Vinicius Tellez MD at [facility] RADIOFREQUENCY ABLATION PERIPHERAL NERVE Right Cluneal Right 09/06/2023 Performed by Vinicius Tellez MD at [facility] RADIOFREQUENCY ABLATION SPINAL Left L 4/5, 5/1 Left 02/14/2024 Performed by Vinicius Tellez MD at [facility] RADIOFREQUENCY ABLATION SPINAL Right L 4/5, 5/1 Right 04/03/2024 Performed by Vinicius Tellez MD at [facility] RADIOFREQUENCY ABLATION SPINAL Left L 4/5, 5/1 Left 08/31/2022 Performed by Vinicius Tellez MD at [facility] RADIOFREQUENCY ABLATION SPINAL Right L 4/5,5/1 Right 03/22/2023 Performed by Vinicius Tellez MD at [facility] REPLACEMENT TOTAL KNEE Left 01/05/2021 Past Medical History: Diagnosis Date Anemia Arthritis RA BPH (benign prostatic hyperplasia) BPH (benign prostatic hypertrophy) Chest cold 01/28/2023 Heart murmur Heart murmur Hyperlipidemia Hypertension IFG (impaired fasting glucose) Joint pain Kidney stone Left knee pain Lipoma Low back pain Obese Pain left knee,left hip, low back Pneumonia 2019 Rheumatoid arthritis (CMS-HCC) Shingles 04/05/2021 Sinusitis, chronic Visual impairment glasses Immunization History Administered Date(s) Administered COVID-19, mRNA, LNP-S, PF, 100mcg/0.5mL Dose 11/18/2020, 11/18/2020, 11/22/2020, 12/16/2020 COVID-19, mRNA, LNP-S, PF, 30mcg/0.3mL Dose 05/04/2022 Covid-19, Mrna, Lnp-s, Pf, 30 Mcg/0.3 Ml Dose, Tay-sucrose 04/24/2022 Covid-19, Mrna, Lnp-s, Pf,tay-sucrose,30 Mcg/0.3ml Seasonal 06/21/2024 Influenza (IM) Preservative Free 10/11/2016 Influenza High Dose Preservative Free IM 06/18/2024 Influenza Vaccine, Quadrivalent, Adjuvanted 07/11/2022, 07/23/2023 Influenza, High-dose, Quadrivalent 07/06/2020, 06/25/2021, 07/11/2023 Influenza, Injectable, MDCK, Quadrivalent 08/04/2019 Influenza, Injectable, Mdck, Preservative Free, Quad 10/29/2017, 08/26/2018 Influenza, Unspecified 07/06/2020, 06/21/2021 Pneumococcal Conjugate 13-Valent 03/31/2014 Pneumococcal Polysaccharide 06/16/2012 RSV, recombinant, protein subunit RSVpreF, adjuvant reconstituted, 0.5 mL, PF 07/11/2023 Tdap 09/30/2015, 12/31/2022 Zoster Vaccine Recombinant 05/22/2021, 06/12/2021, 08/11/2021, 2021 REVIEW OF SYSTEMS: Review of Systems Constitutional: Negative for chills, [...] Hematological: Does not bruise/bleed easily. Psychiatric/Behavioral: Negative. PHYSICAL EXAMINATION: Vitals: 03/09/25 0934 BP: 128/60 BP Site: Left Arm BP Postition: Sitting BP CUFF SIZE: M (9-13 inches) Pulse: 77 Resp: 20 Temp: 36.3 ??C (97.3 ??F) TempSrc: Tympanic SpO2: 99% Weight: 88.2 kg (194 lb 6.4 oz) Height: 172.7 cm (5' 7.99 ) Patient noted to have elevated BMI and the following intervention(s) were applied: encouragement toexercise. Physical Exam Vitals and nursing note reviewed. [...] Content: Thought content normal. Judgment: Judgment normal. ASSESSMENT/PLAN: Silvano was seen today for hypertension. Diagnoses and all orders for this visit: Rheumatoid arthritis involving multiple joints ([facility]-HCC) - hydroxychloroquine (PLAQUENIL) 200 mg tablet; Take 1 tablet (200 mg total) by mouth in the morning and 1 tablet (200 mg total) before bedtime. - predniSONE (DELTASONE) 5 mg tablet; Take 1 tablet by mouth once daily Chronic right shoulder pain - meloxicam (MOBIC) 15 mg tablet; Take 1 tablet (15 mg total) by mouth in the morning. Essential hypertension - hydroCHLOROthiazide (HYDRODIURIL) 25 mg tablet; TAKE 1 TABLET EVERY DAY HTN Controlled 128/60 Continue amlodipine 5 mg oral daily 2. Rheumatoid arthritis Managed by rheumatology Continue Plaquenil and Prednisone 3. Chronic right shoulder pain Is managed by pain management with injections Reorder meloxicam 15 mg oral daily 4. Mixed hyperlipidemia Unable to draw lipid panel today, non fasting Discontinue atorvastatin due to intolerable side effects Encourage diet lower in saturated fats, cholesterol. Increase daily fiber. Body mass index is 29.57 kg/m??. Patient noted to have elevated BMI and the following intervention(s) were applied: Discussed current weight today. Consider healthy food choices, portion control. Avoid sugary beverages and high concentrated sweets. Routine exercise regimen encouraged. ALL QUESTIONS ANSWERED Total time spent was 25 minutes: Preparing to see the patient (e.g., review of tests) Obtaining and/or reviewing separately obtained history Performing a medically appropriate examination and/or evaluation Counseling and educating the patient/family/caregiver Ordering medications, tests, or procedures Follow-up: Medicare wellness PALOMO Ramos 03/09/25 1002 documented in this encounter Plan of Treatment Upcoming Encounters Date Type Department Care Team (Late st Contact Info) Description 06/09/2025 9:40 AM EDT Office Visit [facility] Internal Medicine - Family Medicine [address] [place] [phone] Cleo Espinoza APRN-CNP [address] [place] [phone] 06/30/2025 8:15 AM EDT Office Visit [facility] [address] [place] [phone] Carly Cole PAGianna [address] [place] [address] 02/01/2026 1:00 PM EDT Office Visit [facility] [address] [phone] Nadir Herman MD [facility] [place] [address] 03/17/2026 8:30 AM EDT Office Visit [facility] On[facility] [address] [place] [phone] Magan Katz MD [address] [facility] [address] [place] [phone] documented as of this encounter Visit Diagnoses Diagnosis Rheumatoid arthritis involving multiple joints (CMS-HCC) Chronic right shoulder pain Pain in joint, shoulder region Essential hypertension Unspecified essential hypertension documented in this encounter Additional Health Concerns Assessment Noted Time PHQ-9 Depression Total Score: 0 03/09/20 25 9:33 AM EDT A Body Mass Index follow-up plan has been documented for the patient 03/09/2025 10:02 AM EDT documented as of this encounter Care Teams Turkey Roll Maker Relationship Specialty Start Date End Date Cleo Espinoza, SPANISH LINGUIST-WOOL BUYER [address] [place] [address] PCP - General Family Medicine 12/26/22 documented as of this encounter
--- OUTSIDE RECORDS SUMMARY | 2025-03-11 08:30 | XMS_ITS | Encounter Summary ---
Author Organization [employer] Address [id number] [address] [place] [address] Care Team Providers Care Enrollment Specialist Name Role Phone Cleo Espinoza APRN-PROPERTY CARETAKER Primary Care Provid er Reason for Visit * Reason Comments Follow-up Encounter Details Date Type Department Care Team (Late st Contact Info) Description 03/11/2025 8:30 AM EDT Office Visit [facility] - Medical Oncology [address] [place] [address] Magan Katz MD [address] [place] [address] Normocytic anemia (Primary Dx); Iron deficiency anemia due to chronic blood loss; Gynecomastia Social History Tobacco Use Types Packs/Day Years Used Date Smoking Tobacco: Former Cigarettes Q uit: 2002 Smokeless Tobacco: Never Alcohol Use Standard Drinks/Week Comments No 0 (1 standard drink = 0.6 oz pur e alcohol) [facility] Utilities Answer Date Recorded In the past 12 months has [employer], gas, oil, or water company threatened [...] week 01/29/2025 How often do you attend [facility] or temple services? More than 4 times per year 01/29/2025 Do you belong to any clubs o r organizations such as worship groups, unions, fraternal or athletic groups, or [...] Answer Date Recorded Total Score 0 03/09/2025 [facility] - Occupational [...] Recorded Do you need help finding a [facility] career center and/or a training program? [...] Sign Reading Time Taken Comments Blood Pressure 122/45 03/11/2025 8:22 AM EDT Pulse 75 03/11/2025 8:22 AM EDT Temperature 36.8 C (98.3 F) 03/11/2025 8:22 AM EDT Respiratory Rate 16 03/11/2025 8:22 AM EDT Oxygen Saturation 99% 03/11/2025 8:22 AM EDT Inhaled Oxygen Concentration - - Weight 88.7 kg (195 lb 9.6 oz) 03/11/2025 8:22 A M EDT Height 172.7 cm (5' 7.99 ) 03/11/2025 8:22 AM ED T Body Mass Index 29.75 03/11/2025 8:22 AM EDT documented in this encounter Patient Instructions * Patient Instructions* Magan Katz MD - 03/11/2025 8:30 AM EDT F/u in 1 year, CBC iron studies. documented in this encounter Progress Notes * Magan Katz MD - 03/11/2025 8:30 AM EDT Images from the original note were not included. [facility] 03/11/25 Dean Nieto is a 79 y.o. year old male seen today in the oncology clinic. Chief Complaint Patient presents with Follow-up History of Present Illness: Mr. Nieto is a 79 y.o. male with history of rheumatoid arthritis on Plaquenil. He is referred to Hematology for chronic anemia. The patient denies any recent procedure. He has been taking oral vitamin supplement daily. No significant fatigue or shortness of breath. No blood in the urine or stool. His recent blood work in October 2020 showed hemoglobin of 11.1. MCV and RDW are within normal range. The patient has been on Plaquenil for about 4 years now. Before that he has been on methotrexate for rheumatoid arthritis. The patient underwent Venofer treatment July 2023. Interval history: The patient still takes methotrexate weekly for rheumatoid arthritis, Overall his knee is doing well. Overall he is tolerating Venofer treatment very well, currently he is taking oral iron supplement2 times a week, higher dose will cause constipation. The patient is doing well still complains about gynecomastia, he developed gynecomastia right afterCOVID infection. Complains about occasional back pain due to the weight of breast. Complains about numbness from shingles the sensation just start improve.. No significant shortness of breath fatigue. Denies any bleeding. Past Medical History: Diagnosis Date Anemia Arthritis RA BPH (benign prostatic hyperplasia) BPH (benign prostatic hypertrophy) Chest cold 01/28/2023 Heart murmur Heart murmur Hyperlipidemia Hypertension IFG (impaired fasting glucose) Joint pain Kidney stone Left knee pain Lipoma Low back pain Obese Pain left knee,left hip, low back Pneumonia 2019 Rheumatoid arthritis ([facility]) Shingles 04/05/2021 Sinusitis, chronic Visual impairment glasses Past Surgical History: Procedure Laterality Date ARTHROSCOPY KNEE chondroplsty medial femoral condyle. partial medial menisectomy, evacuation of multiple joint mice Left 02/17/2019 Performed by Tyler Ramirez Jr., DO at [facility] COLONOSCOPY 2013 COLONOSCOPY N/A 07/20/2020 Performed by Johnie Rain DO at [facility] COLONOSCOPY N/A 07/24/2017 Performed by Johnie aRin DO at [facility] COLONOSCOPY DIAGNOSTIC / SCREENING N/A 01/15/2024 Performed by Johnie Rain DO at [facility] EGD N/A 07/20/2020 Performed by Johnie Rain DO at [facility] FRACTURE SURGERY Right ankle HERNIA REPAIR INJECTION BLOCK NERVE Bilat Cluneal Bilateral 06/21/2023 Performed by Vinicius Tellez MD at [facility] INJECTION BLOCK NERVE MEDIAL BRANCH Right L 4/5,5/1 Right 01/18/2023 Performed by Vinicius Tellez MD at [facility] INJECTION BLOCK NERVE MEDIAL BRANCH Right L 4/5,5/1 Right 10/26/2022 Performed by Vinicius Tellez MD at [facility] INJECTION MEDIAL BRANCH NERVE BLOCK Left L 4/5, 5/1 Left 03/04/2020 Performed by Vinicius Tellez MD at [facility] MEDIAL BRANCH NERVE BLOCK: left L45 51mbb Left 12/18/2019 Performed by Vinicius Tellez MD at [facility] INJECTION SACROILIAC NERVE Left 09/02/2020 Performed by Vinicius Tellez MD at [facility] SI JOINT Bilateral SI Joint Bilateral 11/11/2020 Performed by Vinicius Tellez MD at [facility] SPINE TRANSFORAMINAL Right C 6,7 Nroot Right 05/19/2021 Performed by Vinicius Tellez MD at [facility] RADIO FREQUENCY ABLATION Left L 4/5/, 5/1 Left 07/29/2020 Performed by Vinicius Tellez MD at [facility] RADIOFREQUENCY ABLATION PERIPHERAL NERVE Left Cluneal Left 02/12/2025 Performed by Vinicius Tellez MD at [facility] RADIOFREQUENCY ABLATION PERIPHERAL NERVE Left Cluneal Left 09/20/2023 Performed by Vinicius Tellez MD at [facility] RADIOFREQUENCY ABLATION PERIPHERAL NERVE Right Cluneal Right 03/05/2025 Performed by Vinicius Tellez MD at [facility] RADIOFREQUENCY ABLATION PERIPHERAL NERVE Right Cluneal Right 09/06/2023 Performed by Vinicius Tellez MD at [facility] RADIOFREQUENCY ABLATION SPINAL Left L 4/5, 5/1 Left 02/14/2024 Performed by Vinicius Tellez MD at [facility] RADIOFREQUENCY ABLATION SPINAL Right L 4/5, 5/1 Right 04/03/2024 Performed by Vinicius Tellez MD at [facility] RADIOFREQUENCY ABLATION SPINAL Left L 4/5, 5/1 Left 08/31/2022 Performed by Vinicius Tellez MD at [facility] RADIOFREQUENCY ABLATION SPINAL Right L 4/5,5/1 Right 03/22/2023 Performed by Vinicius Tellez MD at [facility] PAIN REPLACEMENT TOTAL KNEE Left 01/05/2021 Family History Problem Relation Age of Onset Diabetes Mother Colon cancer Father Ovarian cancer Sister Diabetes Brother Colon cancer Brother Hypertension Brother Colon cancer Brother Social History Socioeconomic History Marital status: Tobacco Use Smoking status: Former Current packs/day: 0.00 Types: Cigarettes Quit date: 2002 Years since quittin.4 Smokeless tobacco: Never Vaping Use Vaping status: Never Used Substance and Sexual Activity Alcohol use: No Drug use: No Sexual activity: Defer Partners: Female Other Topics Concern Caffeine Use Yes Social Drivers of Health Financial Resource Strain: Low Risk (01/29/2025) Overall Financial Resource Strain (CARDIA) Difficulty of Paying Living Expenses: Not hard at all Food Insecurity: No Food Insecurity (03/09/2025) Hunger Screening Food Insecurity - Worry: Never True Food Insecurity - Inability: Never True Transportation Needs: No Transportation Needs (01/29/2025) PRAPARE - Transportation Lack of Transportation (Medical): No Lack of Transportation (Non-Medical): No Physical Activity: Inactive (01/29/2025) Exercise Vital Sign Days of Exercise per Week: 0 days Minutes of Exercise per Session: 0 min Stress: No Stress Concern Present (01/29/2025) [place] [facility] - Occupational Stress Questionnaire Feeling of Stress : Not at all Social Connections: Moderately Integrated (01/29/2025) Social Connection and Isolation Panel [NHANES] Frequency of Communication with Friends and Family: More than three times a week Frequency of Social Gatherings with Friends and Family: Once a week Attends Christian Services: More than 4 times per year Active Member of Clubs or Organizations: No Attends Club or Organization Meetings: Never Marital Status: Interpersonal Safety: Not At Risk (01/29/2025) Humiliation, Afraid, Rape, and Kick questionnaire Fear of Current or Ex-Partner: No Emotionally Abused: No Physically Abused: No Sexually Abused: No Housing Instability: Low Risk (01/29/2025) Housing Instability Housing Instability: No Allergies Allergen Reactions Methotrexate Other (See Comments) Procaine Medication List Accurate as of March 11, 2025 10:27 AM. If you have any questions, ask your nurse or doctor. Medications Continued This Visit acetaminophen 500 mg tablet Refills: 0 Dose: 500 mg Commonly known as: TYLENOL EXTRA STRENGTH amLODIPine 5 mg tablet Quantity: 90 tablet Refills: 2 Dose: 5 mg Signed by: PALOMO Ramos 5 mg Commonly known as: NORVASC aspirin 81 mg Quantity: 30 tablet Refills: 1 Dose: 81 mg Signed by: PALOMO Figueroa 81 mg, oral, Daily fluticasone propionate 50 mcg/actuation nasal spray Quantity: 16 g Refills: 11 Dose: 2 spray Signed by: PALOMO Ramos 2 sprays, nasal, Daily Commonly known as: FLONASE hydroCHLOROthiazide 25 mg tablet Quantity: 90 tablet Refills: 1 For diagnoses: Essential hypertension Signed by: PALOMO Ramos TAKE 1 TABLET EVERY DAY Commonly known as: HYDRODIURIL hydroxychloroquine 200 mg tablet Quantity: 180 tablet Refills: 1 Doctor's comments: Indication: Rheumatoid Arthritis For diagnoses: Rheumatoid arthritis involving multiple joints ([facility]) Dose: 200 mg Signed by: PALOMO Ramos 200 mg, oral, 2 times daily Commonly known as: PLAQUENIL meloxicam 15 mg tablet Quantity: 90 tablet Refills: 1 For diagnoses: Chronic right shoulder pain Dose: 15 mg Signed by: PALOMO Ramos 15 mg, oral, Daily Commonly known as: MOBIC menthol-zinc oxide 0.44-20.6 % ointment Quantity: 71 g Refills: 6 For diagnoses: Pressure ulcer of sacral region, stage 1 Dose: 1 Application Signed by: PALOMO Ramos 1 Application, topical, 2 times daily PRN Commonly known as: CALMOSEPTINE omeprazole 20 mg capsule Refills: 0 Dose: 20 mg Commonly known as: PriLOSEC predniSONE 5 mg tablet Quantity: 90 tablet Refills: 0 For diagnoses: Rheumatoid arthritis involving multiple joints ([facility]) Signed by: PALOMO Ramos Take 1 tablet by mouth once daily Commonly known as: DELTASONE tadalafiL 20 mg tablet Quantity: 90 tablet Refills: 1 For diagnoses: Other male erectile dysfunction Dose: 20 mg Signed by: MECHE Morrow 20 mg, oral, Daily PRN Commonly known as: CIALIS Review of Symptoms: Review of Systems Constitutional: Positive for fatigue. All other systems reviewed and are negative. ECO- Symptomatic; fully ambulatory Physical Exam: General: Well appearing, in no acute distress. Vitals: BP 122/45 Pulse 75 Temp 36.8 ??C (98.3 ??F) (Oral) Resp 16 Ht 172.7 cm (5' 7.99 ) Wt 88.7 kg (195 lb 9.6 oz) SpO2 99% BMI 29.75 kg/m?? Body mass index is 29.75 kg/m??. Eyes: No icterus, no conjuctival erythema ENT: Pharyngeal mucosa was moist without exudate and inflammation or ulcerations. Tongue was midline and appeared normal.Gums were unremarkable. Lymph nodes: No palpable adenopathy Neck: Supple. There were no masses, tenderness. Trachea was midline. Respiratory: Respirations were non-labored. Lungs were clear to auscultation. There was no dullnessto percussion. Cardiac: Regular rate and rhythm, S1 and S2 sounds were normal. There were no rubs or gallops. Abdomen: Soft, non-tender, Nondistended. Bowel sounds audible in all four quadrants. There were no palpable masses. The liver and spleen were not enlarged. Extremities: There was no clubbing, Cyanosis, edema. Skin: There was no obvious rashes, bruising or ecchymosis. Back exam: No palpable tenderness was appreciated. Neurologic: There was no unilateral weakness. Mood and affect: Normal. Recent Imaging: No results found. Recent Labs: No results found for this or any previous visit (from the past 2 weeks). 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 His CBC she March 2021 showed hemoglobin of 11, MCV and RDW is are normal. Over the past 6 months patient's hemoglobin has been stable. No evidence of new cytopenias. Patient's creatinine and total protein levels are within normal range. I suspect his normocytic anemia is due to chronic disease such as underlying rheumatoid arthritis and exposure to immunosuppressant such as Plaquenil and methotrexate. The patient's hemoglobin is relatively stable, up to 11 recently 02/2023. His iron profile is consistent with iron deficiency again. Since the patient has significant dyspepsia from oral iron supplement, I recommend Venofer 500 mg for 2 doses. The patient is aware of low risk of allergic reaction, he consents to treatment. If patient develops any significant cytopenia over time, to proceed with bone marrow biopsy to ruleout underlying myelodysplastic syndrome. The patient's most recent iron profile is unremarkable. Follow-up with me in 1 year. CBC and iron profile. Physical examination revealed Gynecomastia with no significant underlying mass. Gynecomastia is possibly due to the low testosterone level. Thank you for the referral, I will keep you posted on his progress. Magan Katz MD Please note that portions of this note were generated using voice recognition [employer] dictation software. Although every effort was made to ensure the accuracy of this automated community director, some errors in community director may have occurred. CC: Patient Care Team: PALOMO Ramos as PCP - General (Family Medicine) Magan Katz MD as Consulting Physician (Hematology) PCP:Cleo Espinoza Referring MD: Jackson Blackwell DO documented in this encounter Plan of Treatment Upcoming Encounters Date Type Department Care Team (Late st Contact Info) Description 06/09/2025 9:40 AM EDT Office Visit [facility] - Family Medicine [address] [place] [id number] Cleo Espinoza APRN-CNP [address] [place] [address] 06/30/2025 8:15 AM EDT Office Visit [facility] [address] [place] [id number] Carly Cole PA-C [address] [place], [place] [id number] 02/01/2026 1:00 PM EDT Office Visit [facility] [address] [address] Nadir Herman MD [address] [place] [address] 03/17/2026 8:30 AM EDT Office Visit [facility] - Medical Oncology [address] [place] [address] Magan Katz MD [address] [facility] [address] [place] [address] Scheduled Orders Name Type Priority Associated Diagnoses Orde r Schedule Testosterone Lab Routine Gynecomastia 1 Occurrences starting 03/11/2025 until 03/11/2026 documented as of this encounter Visit Diagnoses Diagnosis Normocytic anemia- Primary Unspecified anemia Iron deficiency anemia due to chronic blood loss Iron deficiency anemia secondary to blood loss (chronic) Gynecomastia Hypertrophy of breast documented in this encounter Additional Health Concerns Assessment Noted Time PHQ-9 Depression Total Score: 0 03/09/20 25 9:33 AM EDT A Body Mass Index follow-up plan has been documented for the patient 03/09/2025 10:02 AM EDT documented as of this encounter Care Teams Enrollment Specialist Relationship Specialty Start Date End Date Cleo Espinoza APRN-PROPERTY CARETAKER [address] [place] [address] PCP - General Family Medicine 12/26/22 documented as of this encounter
--- OUTSIDE RECORDS SUMMARY | 2025-03-17 08:30 | XMS_ITS | Encounter Summary ---
Author Organization [facility] tem Address [id number] [address] [place] [address] Care Team Providers Care Sales Support Assistant Name Role Phone Alexis Cleo Rae APRN-B2B SALES CONSULTANT Primary Care Provid er Reason for Visit * Reason Comments Back Pain Encounter Details Date Type Department Care Team (Latest Contact Info) Description 03/17/2025 8:30 AM EDT Office Visit 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 More than 4 times per year 01/29/2025 Do you belong to any clubs o r organizations such as orthodox groups, unions, fraternal or athletic groups, or [...] Answer Date Recorded Total Score 0 03/09/2025 [facility] - Occupational Stress [...] Recorded Do you need help finding a [facility] career center and/or a training program? No 01/29/2025 Hunger Screening Answer Date Recorded Within the past 12 months we worried whether our food would run out before we got money to buy more. Never True 03/17/2025 Within the past 12 months th e food we bought just didn't last and we didn't have money to get more. Never True 03/17/2025 Purpose - Life Answer Date Recorded I [...] Sign Reading Time Taken Comments Blood Pressure 151/69 03/17/2025 8:31 AM EDT Pulse 55 03/17/2025 8:31 AM EDT Temperature - - Respiratory Rate 20 03/17/2025 8:31 AM EDT Oxygen Saturation - - Inhaled Oxygen Concentration - - Weight - - Height - - Body Mass Index - - documented in this encounter Progress Notes * Carly Cole PA-C - 03/17/2025 8:30 AM EDT [facility] Management [address] [place] [address] Patient: Dean Nieto Sex: male : 1945 Age: 79 y.o. PCP: Cleo Espinoza APRN-B2B SALES CONSULTANT 03/17/2025 Dean Nieto is here for a(n) post procedure follow up 03/05/2025 right then 02/12/2025 cluneal Radiofrequency ablation with 75% overall. Date of onset of pain: 1965 , pain has lasted greater than 3 months. Pain scale before treatment: 7/10 Pre-op pain score: 7/10 Post-op pain score: 0/10 Percentage and duration of relief after treatment: see above Pain scale after treatment: 12/28 Chief Complaint Patient presents with Back Pain HPI: PT/HEP 1999 Right C 03/27 NRI 50% relief. Left L4/5 5/ RFA 08/31/2022 50-60% relief until Nov 2023 right L 4/5, 5/1 medial branch block on 10/26/2022 with 100% relief for two days then it wore off to 50% relief currently. 01/18/2023 right L 4/5 and L5/S1 MBB with 100% relief for a day 03/22/2023 RFA Right L 4/5 5/ with 60% relief right cluneal radiofrequency ablation on 08/27/2023 and left cluneal radiofrequency ablation on 09/20/2023 with 75% relief 02/14/24 Lt L 4/5, 02/18 RFA w/70% relief continued 05/13/24 Right L 4/5 5/1 RFA with 50% relief ongoing pre-proc pain 01/28 post proc pain 11/3003/05/2025 right cluneal RFA and 02/12/2025 cluneal RFA with 75% overall. Back Pain This is a chronic problem. Episode onset: 1964. The problem occurs 2 to 4 times per day. The problem has been gradually improving (post cluneal RFAs) since onset. The pain is present in the lumbar spine, sacro-iliac and gluteal. The quality of the pain is described as aching. The pain does not radiate. The pain is at a severity of 3/10. The pain is mild. The pain is The same all the time. The symptoms are aggravated by lying down and position (turning especially with amb and transitions). Stiffness is present All day. Associated symptoms include headaches (sinus headaches). Pertinent negatives include no abdominal pain, bladder incontinence, bowel incontinence, chest pain, fever, leg pain, numbness, tingling or weakness. Risk factors include obesity (RA). He has tried ice, heat and bed rest (PT (1999), Daily HEP, circ. bath tub, inversion table, meds: mobic, methotrexate, tylenol 3, prednisone, tizanide, motrin, bengay, hempvana cream) for the symptoms. The treatment provided moderaterelief. The effect of pain on patient's ADLS: Moderate Impairment. Past Medical History: Diagnosis Date Anemia Arthritis RA BPH (benign prostatic hyperplasia) BPH (benign prostatic hypertrophy) Chest cold 01/28/2023 Heart murmur Heart murmur Hyperlipidemia Hypertension IFG (impaired fasting glucose) Joint pain Kidney stone Left knee pain Lipoma Low back pain Obese Pain left knee,left hip, low back Pneumonia 2018 Rheumatoid arthritis (CMS-HCC) Shingles 04/05/2021 Sinusitis, chronic Visual impairment glasses Past Surgical History: Procedure Laterality Date ARTHROSCOPY KNEE chondroplsty medial femoral condyle. partial medial menisectomy, evacuation of multiple joint mice Left 02/17/2019 Performed by Tyler Ramirez Jr., DO at [facility] COLONOSCOPY 2013 COLONOSCOPY N/A 07/20/2020 Performed by Johnie Rain DO at [facility] COLONOSCOPY N/A 07/24/2017 Performed by Johnie Rain DO at [facility] COLONOSCOPY DIAGNOSTIC / SCREENING N/A 01/15/2024 Performed by Johnie Rain DO at [facility] EGD N/A 07/20/2020 Performed by Johnie Rain DO at [facility] FRACTURE SURGERY Right ankle HERNIA REPAIR INJECTION BLOCK NERVE Bilat Cluneal Bilateral 06/21/2023 Performed by Vinicius Tellez MD at [facility] INJECTION BLOCK NERVE MEDIAL BRANCH Right L 4/5,5/1 Right 01/18/2023 Performed by Vinicius Tellez MD at [facility] INJECTION BLOCK NERVE MEDIAL BRANCH Right L 4/5,5/1 Right 10/26/2022 Performed by Vinicius Tellez MD at [facility] INJECTION MEDIAL BRANCH NERVE BLOCK Left L 4/5, 5/ Left 03/04/2020 Performed by Vinicius Tellez MD at [facility] MEDIAL BRANCH NERVE BLOCK: left L45 51mbb Left 12/18/2019 Performed by Vinicius Tellez MD at [facility] INJECTION SACROILIAC NERVE Left 09/02/2020 Performed by Vinicius Tellez MD at [facility] INJECTION SI JOINT Bilateral SI Joint Bilateral 11/11/2020 Performed by Vinicius Tellez MD at [facility] SPINE TRANSFORAMINAL Right C 6,7 Nroot Right 05/19/2021 Performed by Vinicius Tellez MD at [facility] RADIO FREQUENCY ABLATION Left L 4/5/, 5/1 Left 07/29/2020 Performed by Vinicius Tellez MD at [facility] RADIOFREQUENCY ABLATION PERIPHERAL NERVE Left Cluneal Left 02/12/2025 Performed by Vinicius Tellez MD at [facility] RADIOFREQUENCY ABLATION PERIPHERAL NERVE Left Cluneal Left 09/20/2023 Performed by Vinicius Tellez MD at [facility] RADIOFREQUENCY ABLATION PERIPHERAL NERVE Right Cluneal Right 03/05/2025 Performed by Vinicius Tellez MD at [facility] RADIOFREQUENCY ABLATION PERIPHERAL NERVE Right Cluneal Right 09/06/2023 Performed by Vinicius Tellez MD at [facility] RADIOFREQUENCY ABLATION SPINAL Left L 4/5, 5/ Left 02/14/2024 Performed by Vinicius Tellez MD at [facility] RADIOFREQUENCY ABLATION SPINAL Right L 4/5, 5/ Right 04/03/2024 Performed by Vinicius Tellez MD at [facility] RADIOFREQUENCY ABLATION SPINAL Left L 4/5, 5/1 Left 08/31/2022 Performed by Vinicius Tellez MD at [facility] RADIOFREQUENCY ABLATION SPINAL Right L 4/5,5/ Right 03/22/2023 Performed by Vinicius Tellez MD at [facility] REPLACEMENT TOTAL KNEE Left 01/05/2021 Allergies Allergen Reactions Methotrexate Other (See Comments) Procaine Family History Problem Relation Age of Onset Diabetes Mother Colon cancer Father Ovarian cancer Sister Diabetes Brother Colon cancer Brother Hypertension Brother Colon cancer Brother Social History Socioeconomic History Marital status: Spouse name: Not on file Number of children: Not on file Years of education: Not on file Highest education level: Not on file Occupational History Not on file Tobacco Use Smoking status: Former Current packs/day: 0.00 Types: Cigarettes Quit date: 2002 Years since quittin.4 Smokeless tobacco: Never Vaping Use Vaping status: Never Used Substance and Sexual Activity Alcohol use: No Drug use: No Sexual activity: Defer Partners: Female Other Topics Concern Caffeine Use Yes Social History Narrative Not on file Social Drivers of Health Financial Resource Strain: Low Risk (01/29/2025) Overall Financial Resource Strain (CARDIA) Difficulty of Paying Living Expenses: Not hard at all Food Insecurity: No Food Insecurity (03/17/2025) Hunger Screening Food Insecurity - Worry: Never True Food Insecurity - Inability: Never True Transportation Needs: No Transportation Needs (01/29/2025) PRAPARE - Transportation Lack of Transportation (Medical): No Lack of Transportation (Non-Medical): No Physical Activity: Inactive (01/29/2025) Exercise Vital Sign Days of Exercise per Week: 0 days Minutes of Exercise per Session: 0 min Stress: No Stress Concern Present (01/29/2025) [facility] [place] [facility] - Occupational Stress Questionnaire Feeling of Stress : Not at all Social Connections: Moderately Integrated (01/29/2025) Social Connection and Isolation Panel [NHANES] Frequency of Communication with Friends and Family: More than three times a week Frequency of Social Gatherings with Friends and Family: Once a week Attends Gnosticism Services: More than 4 times per year Active Member of Clubs or Organizations: No Attends Club or Organization Meetings: Never Marital Status: Interpersonal Safety: Not At Risk (01/29/2025) Humiliation, Afraid, Rape, and Kick questionnaire Fear of Current or Ex-Partner: No Emotionally Abused: No Physically Abused: No Sexually Abused: No Housing Instability: Low Risk (01/29/2025) Housing Instability Housing Instability: No Review of Systems Constitutional: Negative for fever. HENT: Negative. Eyes: Negative. Respiratory: Negative. Cardiovascular: Negative. Negative for chest pain. Gastrointestinal: Negative. Negative for abdominal pain and bowel incontinence. Genitourinary: Negative. Negative for bladder incontinence. Musculoskeletal: Positive for back pain. Skin: Negative. Neurological: Positive for headaches (sinus headaches). Negative for tingling, weakness and numbness. Vital Signs: BP 151/69 (BP Site: Right Arm, BP Postition: Sitting) Pulse 55 Resp 20 Physical Exam: GENERAL - Healthy patient that appears stated age. HEENT - Normocephalic / Atraumatic, Extraoccular movements intact, trachea midline, thyroid within normal limits. CV - pulse regular, Warm extremities with appropriate color of nailbeds. RESP - No obvious wheezing, No Shortness of Breath, No overexertion response to exam maneuvers. COORDINATION - remains intact. PSYCH - Alert and Oriented x4, Attentive and appropriate, constitutionally normal, displays normal mood and affect per situation, answered questions appropriately during examination, demonstrated appropriate attention during discussion, demonstrated appropriate cognitive reasoning and understandingof the medical condition by asking appropriate questions regarding the diagnosis and risks/benefits/alternatives of treatment modalities. No obvious deficits in memory, reasoning, or intellect. Lumbar: SKIN - No rashes or bruising in the area of the patient???s pain. LYMPH NODES - demonstrate no obvious enlargement. EXTREMITIES - Lower extremities are warm, with minimal edema and palpable pulses. Tenderness to palpation noted in the lumbar spine and paraspinal musculature. Pain is elicited withflexion, extension, and lateral rotation of the lumbar spine. Range of motion is diminished with these motions due to pain. Facet palpation is noted to be painful and facet loading maneuvers elicit pain that is concordant with the patient???s normal pain complaints. Some muscle spasm is noted in the overlying musculature. STRENGTH - noted to be 5 out of 5 all muscle groups bilateral lower extremities including muscles involving hip flexion and abduction, knee flexion and extension, as well as foot dorsiflexion and plantarflexion. No notable atrophy, fasciculations or spasm. SENSORY - No notable sensory deficits in the bilateral lower extremities to touch or pinprick in all dermatomal distributions. Straight Leg Raise is negative bilaterally. Gait is normal. Hyperalgesia has decreased over the Bilateral cluneal nerve distribution post radiofrequency ablations. Assessment/Treatment Plan: Silvano was seen today for back pain. 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 DISCUSSION: Treatment options discussed with patient and all questions answered to patient's satisfaction. Discussed the rules and regulations surrounding prescription of opioids and compliance at length. Failure to follow the rules and regulation will result in tapering and discontinuation of medications if applicable. Prescribed medication that requires intensive monitoring for toxicity We do not currently prescribeany controlled substance from this practice. It does appear that the patient benefited from the previous injection and the benefit has continuedthrough this visit. At this time, we will monitor the patient???s symptoms from an interventional standpoint and consider another injection in the future if the patient???s symptoms return or intensify severely. The patient was made aware that they should call if symptoms worsen or if their pain begins to have a negative impact on their quality of life and activities of daily living again. The spine model was demonstrated and Xray was reviewed and used to explain the condition. OARRS: Reviewed. Scribe Statement: I, Yessenia Wilcox RN, scribed for and in the presence of NAILA LAWSON who performed theabove service. Yessenia Wilcox RN 03/17/25 09 Carly Cole PA-C 03/17/25 0934 documented in this encounter Plan of Treatment Upcoming Encounters Date Type Department Care Team (Late st Contact Info) Description 06/09/2025 9:40 AM EDT Office Visit [facility] Internal Medicine - Family Medicine [address] [place] [phone] Cleo Espinoza, CLAY ARTISAN-B2B SALES CONSULTANT [address] [place] [place] [phone] 06/30/2025 8:15 AM EDT Office Visit [facility] [address] [place] [phone] Carly Cole PA-C [address] [facility], 2nd Floor [place], [place] [phone] 02/01/2026 1:00 PM EDT Office Visit [facility] [address] [place] [address] [place] [phone] Nadir Herman MD [address] [place] [address] 03/17/2026 8:30 AM EDT Office Visit [facility] - Medical Oncology [address] [place] [phone] Magan Katz MD [address] [facility] [address] [place] [phone] documented as of this encounter Visit Diagnoses Diagnosis Lumbosacral spondylosis without myelopathy- Primary Other specified mononeuropathies of bilateral lower limbs documented in this encounter Additional Health Concerns Assessment Noted Time PHQ-9 Depression Total Score: 0 03/09/20 9:33 AM EDT A Body Mass Index follow-up plan has been documented for the patient 03/09/2025 10:02 AM EDT documented as of this encounter Care Teams Sales Support Assistant Relationship Specialty Start Date End Date Cleo Espinoza, CLAY ARTISAN-B2B SALES CONSULTANT [address] [place] [address] PCP - General Family Medicine 12/26/22 documented as of this encounter
--- OUTSIDE RECORDS SUMMARY | 2025-03-17 09:51 | XMS_ITS | Encounter Summary ---
Author Organization [facility] [employer] [facility] Address [id number] [address] [place] [address] Care Team Providers Care Nuclear Medicine Tech Name Role Phone Cleo Espinoza APRN-PRECISION LAYOUT WORKER Primary Care Provid er Encounter Details Date Type Department Care Team (Late st Contact Info) Description 02/01/2025 [facility]phone [facility] [address] [place] [address] Nivia Nunez, CHRIS Social History Tobacco Use Types Packs/Day Years Used Date Smoking Tobacco: Former Cigarettes Q uit: 2002 Smokeless Tobacco: Never Alcohol Use Standard Drinks/Week Comments No 0 (1 standard drink = 0.6 oz pur e alcohol) [facility] Utilities Answer Date Recorded In the past 12 months has e electric, gas, oil, or water company [...] often do you attend chur ch or confucianism services? More than 4 times per year 01/29/2025 Do you belong to any clubs o r organizations such as samaritan groups, unions, fraternal or athletic groups, or [...] Answer Date Recorded Total Score 0 02/03/2025 [facility] - Occupational [...] Recorded Do you need help finding a [facility] career center and/or a training program? No [...] a purpose and direction in my life. Yaryn gly Agree 01/29/2025 Sex and Gender Information Value Date Recorded Sex Assigned at Not on file Legal Sex Male 11:32 AM EDT Gender Identity Not on file Sexual Orientation Not on file documented as of this encounter Miscellaneous Notes * Telephone Encounter - Nivia Nunez RN - 02/01/2025 8:31 AM EDT Tier 3 Thanks Sharmin documented in this encounter Plan of Treatment Upcoming Encounters Date Type Department Care Team (Late st Contact Info) Description 06/09/2025 9:40 AM EDT Office Visit [facility] Internal Medicine - Family Medicine [address] [place] [address] Cleo Espinoza, CAVALRY SCOUT-PRECISION LAYOUT WORKER [address] [place] [phone] 06/30/2025 8:15 AM EDT Office Visit [facility] [address] [place] [phone] Carly Cole, PAGianna [address] [facility], 2nd [place] [address] 02/01/2026 1:00 PM EDT Office Visit [facility] [address] [place] [phone] Nadir Herman MD [address] [place] [address] 03/17/2026 8:30 AM EDT Office Visit [facility] - Medical Oncology [address] [place] [phone] Magan Katz MD [address] [facility] [address] [place] [phone] documented as of this encounter Visit Diagnoses Not on filedocumented in this encounter Additional Health Concerns Assessment Noted Time PHQ-9 Depression Total Score: 0 09/09/20 9:10 AM EST A Body Mass Index follow-up plan has been documented for the patient 09/09/2024 9:51 AM EST documented as of this encounter Care Teams Nuclear Medicine Tech Relationship Specialty Start Date End Date Cleo Espinoza, CAVALRY SCOUT-PRECISION LAYOUT WORKER [address] [place] [address] PCP - General Family Medicine 12/26/22 documented as of this encounter
--- OUTSIDE RECORDS SUMMARY | 2025-03-17 09:51 | XMS_ITS | Encounter Summary ---
Author Organization [employer] tem Address [facility] [id number] [address] [place] [address] Care Team Providers Care Coach Builder Name Role Phone Cleo Espinoza Primary Care Provid er Reason for Visit * Reason Onset Date Comments Med Refill 08/09/2022 Encounter Details Date Type Department Care Team (Late st Contact Info) Description 08/09/2022 Refill [facility] Internal Medicine - Family Medicine [address] [place] [phone] Ada Maradiaga MA Social History Tobacco Use Types Packs/Day Years Used Date Smoking Tobacco: Former Cigarettes Q uit: 2002 Smokeless Tobacco: Never Alcohol Use Standard Drinks/Week Comments No 0 (1 standard drink = 0.6 oz pur e alcohol) PHQ-2 Answer Date Recorded Total Score 0 07/19/2020 Childcare Answer Date Recorded Childcare Unknown 03/31/2019 Employment Answer Date Recorded Employment Unknown 03/31/2019 Purpose - Life Answer Date Recorded Purpose and direction in life Unknown Sex and Gender Information Value Date Recorded Sex Assigned at Not on file Legal Sex Male 11:32 AM EDT Gender Identity Not on file Sexual Orientation Not on file documented as of this encounter Plan of Treatment Upcoming Encounters Date Type Department Care Team (Late Contact Info) Description 06/09/2025 9:40 AM EDT Office Visit [facility] Internal Medicine - Family Medicine [address] [place] [address] Cleo Espinoza APRN-CNP [address] [place] [phone] 06/30/2025 8:15 AM EDT Office Visit [facility] [address] [place] [phone] Carly Cole, PA-C [address] [facility] [address] [place] [address] 02/01/2026 1:00 PM EDT Office Visit [facility] [address] [place] [address] [phone] Nadir Herman MD [facility] [place] [address] 03/17/2026 8:30 AM EDT Office Visit [facility] - Medical Oncology [address] [place] [phone] Magan Katz MD [address] [facility] [address] [place] [phone] documented as of this encounter Visit Diagnoses Not on filedocumented in this encounter Additional Health Concerns Assessment Noted Time PHQ-9 Depression Total Score: 0 07/19/20 20 11:02 AM EDT documented as of this encounter Care Teams Coach Builder Relationship Specialty Start Date End Date Cleo Espinoza, MACHINE OPERATOR [employer] [address] [place] [phone] PCP - General Family Medicine 12/26/22 documented as of this encounter
--- OUTSIDE RECORDS SUMMARY | 2025-03-17 09:51 | XMS_ITS | Encounter Summary ---
Author Organization [facility] tem Address [id number] [address] [place] [address] Care Team Providers Care Drapery Estimator Name Role Phone Cleo Espinoza Kyra IBRAHIM-SEAT MENDER Primary Care Provid er Encounter Details Date Type Department Care Team (Late st Contact Info) Description 08/15/2022 Orders Only [facility] [address] [facility] [place] [address] Ref Prov, [place] [address] Social History Tobacco Use Types Packs/Day Years [...] on file Sexual Orientation Not on file COVID-19 Exposure Response Date Recorded In the last month, have you been in contact with someone who was confirmed or suspected to have Coronavirus / COVID-19? No / Unsure 08/14/2022 1:53 PM EDT documented as of this encounter Plan of Treatment Upcoming Encounters Date Type Department Care Team (Late st Contact Info) Description 06/09/2025 9:40 AM EDT Office Visit [facility] - Family Medicine [address] [place] [address] Cleo Espinoza APRN-CNP [address] [place] [phone] 06/30/2025 8:15 AM EDT Office Visit [facility] [address] [place] [phone] Carly Cole PA-C [address] [place] [address] 02/01/2026 1:00 PM EDT Office Visit [facility] [address] [place] [address] [place] [phone] Nadir Herman MD [address] [place] [address] 03/17/2026 8:30 AM EDT Office Visit [facility] - Medical Oncology [address] [place] [phone] [place] [address] [place] [address] [address] [place] [address] documented as of this encounter Procedures Procedure Name Priority Date/Time Associated Diagnosis Comments DIABETES EYE EXAM Routine 08/15/2022 documented in this encounter Results * DIABETES EYE EXAM (08/15/2022) us Not In System Ref Prov HEALTH MAINTENANCE Final Result MANUALLY TRANSCRIBED RESULTS documented in this encounter Visit Diagnoses Not on filedocumented in this encounter Additional Health Concerns Assessment Noted Time PHQ-9 Depression Total Score: 0 07/19/20 20 11:02 AM EDT documented as of this encounter Care Teams Drapery Estimator Relationship Specialty Start Date End Date Cleo Espinoza APRN-SEAT MENDER [address] [place] [address] PCP - General Family Medicine 12/26/22 documented as of this encounter
--- OUTSIDE RECORDS SUMMARY | 2025-03-17 09:51 | XMS_ITS | Encounter Summary ---
Author Organization [facility] Address [id number] [address] [place] [address] Care Team Providers Care Crna Name Role Phone Espinoza, Cleo CULVER Primary Care Provid er Reason for Visit * Reason Comments Med Refill Encounter Details Date Type Department Care Team (Late st Contact Info) Description 07/07/2022 Refill [facility] - Family Medicine [address] [place] [address] Jackson Blackwell, DO [address] [facility] [place] [address] Social History Tobacco Use Types Packs/Day Years [...] have Coronavirus / COVID-19? No / Unsure 06/28/2022 8:26 AM EDT documented as of this encounter Plan of Treatment Upcoming Encounters Date Type Department Care Team (Late st Contact Info) Description 06/09/2025 9:40 AM EDT Office Visit [facility] Internal Medicine - Family Medicine [address] [place] [phone] Cleo Espinoza APRN-CERTIFIED REGISTERED NURSE PRACTITIONER [address] [place] [phone] 06/30/2025 8:15 AM EDT Office Visit [facility] Management [facility] [address] [place] [phone] Carly Cole PA-C [address] [facility], 2nd [place] [address] 02/01/2026 1:00 PM EDT Office Visit [facility] [address] [place] [phone] Nadir Herman MD [facility] [place] [address] 03/17/2026 8:30 AM EDT Office Visit [facility] - Medical Oncology [address] [place] [phone] Magan Katz MD [address] [place] [address] documented as of this encounter Visit Diagnoses Not on filedocumented in this encounter Additional Health Concerns Assessment Noted Time PHQ-9 Depression Total Score: 0 07/19/20 11:02 AM EDT documented as of this encounter Care Teams Crna Relationship Specialty Start Date End Date Cleo Espinoza APRN-CERTIFIED REGISTERED NURSE PRACTITIONER [address] [place] [phone] PCP - General Family Medicine 12/26/22 documented as of this encounter
--- OUTSIDE RECORDS SUMMARY | 2025-03-17 09:51 | XMS_ITS | Encounter Summary ---
Author Organization [employer] s tem Address [facility]-[id number] [address] [place] [address] Care Team Providers Care Site Damage Prevention Technician Name Role Phone Cleo Espinoza APRN-LABVIEW PROGRAMMER Primary Care Provid er Encounter Details Date Type Department Care Team (Latest Contact Info) Description 03/17/2025 Travel Social History Tobacco Use Types Packs/Day Years Used Date Smoking Tobacco: Former Cigarettes Q uit: 2002 Smokeless Tobacco: Never Alcohol Use Standard Drinks/Week Comments No 0 (1 standard drink = 0.6 oz pur e alcohol) [facility] Utilities Answer Date Recorded In the past [...] often do you attend chur ch or tenriism services? More than 4 times per year 01/29/2025 Do you belong to any clubs o r organizations such as mandaen groups, unions, fraternal or athletic groups, or [...] Answer Date Recorded Total Score 0 03/09/2025 [facility] - Occupational [...] Recorded Do you need help finding a [facility] and/or a training program? No [...] Description 06/09/2025 9:40 AM EDT Office Visit [facility] Internal Medicine - Family Medicine [address] [place] [phone] Cleo Espinoza, [employer] OPER[employer] SPECIALIST-LABVIEW PROGRAMMER [address] [facility] [place] [phone] 06/30/2025 8:15 AM EDT Office Visit [facility] Management Clinic [address] [place] [phone] Carly Cole, PA-C [address] [facility], 2nd Floor [place], [place] [phone] 02/01/2026 1:00 PM EDT Office Visit [facility] [address] [place] [phone] Nadir Herman MD [address] [place] [address] 03/17/2026 8:30 AM EDT Office Visit [facility] - Medical Oncology [address] [place] [phone] Magan Katz MD [address] [facility] [address] [place] [address] documented as of this encounter Visit Diagnoses Not on filedocumented in this encounter Additional Health Concerns Assessment Noted Time PHQ-9 Depression Total Score: 0 03/09/20 25 9:33 AM EDT A Body Mass Index follow-up plan has been documented for the patient 03/09/2025 10:02 AM EDT documented as of this encounter Care Teams Site Damage Prevention Technician Relationship Specialty Start Date End Date Cleo Espinoza APRN-LABVIEW PROGRAMMER [address] [place] [address] PCP - General Family Medicine 12/26/22 documented as of this encounter
--- OUTSIDE RECORDS SUMMARY | 2025-03-17 09:51 | XMS_ITS | Clinical Summary ---
Author Organization Compie[facility] Address [id number] [address] [place] [address] Care Team Providers Care Calculus Professor Name Role Phone Cleo Espinoza APRN-PADDLE DYEING MACHINE OPERATOR Primary Care Provid er Allergies Active Allergy Reactions Criticality Noted Date Comments Methotrexate Other (See Comments) Medium 11/09/2022 Procaine 12/16/2019 Medications acetaminophen (TYLENOL EXTRA STRENGTH) 500 mg tablet Take 1 tablet (500 mg total) by mouth every 6 (six) hours as needed for pain. Active aspirin 81 mg Take 1 tablet (81 mg total) by mouth in the morning. 30 tablet 1 11/02/19 23 Active fluticasone propionate (FLONASE) 50 mcg/actuation nasal spray Administer 2 sprays into each nostril in the morning. 16 g 11 12/13/19 23 Active menthol-zinc oxide (CALMOSEPTINE) 0.44-20.6 % ointmentIndication s:Pressure ulcer of sacral region, stage 1 Apply 1 Application topically 2 (two) times a day as needed (apply to buttocks). 71 g 6 07/23/20 23 Active tadalafiL (CIALIS) 20 mg tabletIndications: Other male erectile dysfunction Take 1 tablet (20 mg total) by mouth daily as needed for erectile dysfunction. 90 tablet 1 09/15/20 24 Active omeprazole (PriLOSEC) 20 mg capsule Take 1 capsule (20 mg total) by mouth in the morning. Active amLODIPine (NORVASC) 5 mg tablet Take 1 tablet by mouth nightly 90 tablet 2 02/09/20 25 Active hydroxychloroquine (PLAQUENIL) 200 mg tabletIndications: Rheumatoid arthritis involving multiple joints (CMS-HCC) Take 1 tablet (200 mg total) by mouth in the morning and 1 tablet (200 mg total) before bedtime. 180 tablet 1 03/09/20 25 Active meloxicam (MOBIC) 15 mg tabletIndications: Chronic right shoulder pain Take 1 tablet (15 mg total) by mouth in the morning. 90 tablet 1 03/09/20 25 Active predniSONE (DELTASONE) 5 mg tabletIndications: Rheumatoid arthritis involving multiple joints (CMS-HCC) Take 1 tablet by mouth once daily 90 tablet 03/09/20 25 Active hydroCHLOROthiazid e (HYDRODIURIL) 25 mg tabletIndications: Essential hypertension TAKE 1 TABLET EVERY DAY 90 tablet 1 03/09/20 25 Active hydroxychloroquine (PLAQUENIL) 200 mg tabletIndications: Rheumatoid arthritis involving multiple joints (CMS-HCC) Take 1 tablet (200 mg total) by mouth in the morning and 1 tablet (200 mg total) before bedtime. 180 tablet 1 09/09/20 24 025 Discontin ued(Reord er) predniSONE (DELTASONE) 5 mg tabletIndications: Rheumatoid arthritis involving multiple joints (CMS-HCC) Take 1 tablet by mouth once daily 90 tablet 09/09/20 24 025 Discontin ued(Reord er) hydroCHLOROthiazid e (HYDRODIURIL) 25 mg tabletIndications: Essential hypertension TAKE 1 TABLET EVERY DAY 90 tablet 1 09/09/20 24 025 Discontin ued(Reord er) meloxicam (MOBIC) 15 mg tabletIndications: Chronic right shoulder pain Take 1 tablet (15 mg total) by mouth in the morning. 90 tablet 1 09/09/20 24 025 Discontin ued(Reord er) atorvastatin (LIPITOR) 10 mg tabletIndications: Mixed hyperlipidemia Take 1 tablet (10 mg total) by mouth in the morning. 90 tablet 2 02/04/20 25 025 Discontin ued(Thera py completed ) Active Problems Problem Noted Date Diagnosed Date Primary hypertension 01/30/2025 Confusion 01/29/2025 Elevated PSA 09/02/2024 Overview (01/05/2025): 09/02/24: PSA 6.35. This is the 1st time he has had it checked. He is above the recommended screening age, so it is difficult to interpret this value. His prostate is benign but markedly enlarged on exam today. That along with his age are likely the reason for his PSA value. We discussed additional diagnostics such as MRI or exo DX testing. For now, he would like to just recheck in a few months to monitor the trend. I think this is a reasonable plan 01/05/25: PSA stable at 6.24 . We reviewed PSA and screening guidelines today. Although it is possible he could have some underlying prostate cancer given the stability the PSA it is unlikely he has aggressive prostate cancer. He is comfortable still following. Recheck 1 year Assessment & Plan (09/02/2024 4:47 PM EST): We discussed that without going forward with additional testing, he may have an underlying prostate cancer. He understands and feels comfortable with just monitoring. He has been referred to Dr. Herman. We will see him back in a few months with a repeat PSA Abnormal finding on urinalysis 09/02/2024 Overview (09/03/2024): 09/02/24: UA today dips for trace blood. 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 06/05/2023 Chronic obstructive pulmonary disease 05/09/2023 History of tobacco use 05/09/2023 Pulmonary fibrosis, unspecified 04/16/2023 04/16/2023 Age-related nuclear cataract, bilateral 02/07/20 23 02/06/2023 Right wrist pain 12/26/2022 Gynecomastia 11/09/2022 Overview (11/09/2022): February 24, 2021 Entered By: PRESTON JONES Comment: bilateral Sensorineural hearing loss, bilateral 11/09/2022 Gastroesophageal reflux disease 11/09/2022 Low back pain 11/09/2022 Right lower quadrant abdominal mass 11/09/2022 Dizziness 11/09/2022 Nonrheumatic aortic valve stenosis 11/09/2022 Unsteady gait 11/01/2022 Normocytic anemia 12/07/2021 Right hand pain 06/07/2021 Post herpetic neuralgia 05/03/2021 Overview (05/03/2021): Added automatically from request for surgery [id number] Cervical neuritis 05/03/2021 Overview (05/03/2021): Added automatically from request for surgery [id number] Trochanteric bursitis of left hip 09/14/2020 Lumbar spondylosis 09/14/2020 Disorder of sacrum 2020 Overview (2020): Added automatically from request for surgery [id number] Duodenal ulcer 07/20/2020 Chronic erosion of pyloric antrum 07/20/2020 Iron deficiency anemia 07/17/2020 Abnormal C-reactive protein 01/06/2020 Essential hypertension 01/06/2020 Herniated lumbar intervertebral disc 01/06/2020 Impaired glucose tolerance 01/06/2020 Erectile dysfunction 01/06/2020 Overview (09/15/2024): 09/02/24: He will confirm that he is only taking sildenafil 20 mg. If that is the case, he will switch to on demand dosing and titrate up to no more than 100 mg. He will let us know if this is ineffective. 09/15/24: Patient states he is taking tadalafil 20mg, not sildenafil Leukocytosis 01/06/2020 Mixed hyperlipidemia 01/06/2020 Obesity, morbid 01/06/2020 Other chronic pain 01/06/2020 Post-traumatic osteoarthritis of right ankle DJD (degenerative joint disease) 01/06/2020 Primary osteoarthritis of left knee 01/06/2020 Seropositive rheumatoid arthritis 01/06/2020 Transient ischemic attack 01/06/2020 Trimalleolar fracture 01/06/2020 Lumbosacral spondylosis without myelopathy 12/03 Overview (12/03/2019): Added automatically from request for surgery [id number] Benign prostatic hyperplasia with urinary obstru ction 11/19/2019 Mitral valve regurgitation 04/10/2019 Derangement of meniscus 05/01/2018 Spinal stenosis of lumbar region 05/01/2018 Vitamin D deficiency 03/05/2018 Colon polyp 07/24/2017 Rectal bleeding 07/22/2017 Rectal hemorrhage 07/22/2017 Resolved Problems Problem Noted Date Diagnosed Date Resolved Date Cardiac murmur, unspecified 11/09/2022 08/27/2023 Tricuspid valve stenosis 04/10/201904/2023 Encounters Date Type Department Care Team Description 03/17/2025 8:30 AM EDT Office Visit [facility] [address] [place] [phone] Carly Cole, PATatiC Lumbosacral spondylosis without myelopathy (Primary Dx); Other specified mononeuropathies of bilateral lower limbs 03/17/2025 Travel 03/11/2025 8:30 AM EDT Office Visit [facility] - Medical Oncology [address] [place] [phone] Magan Katz MD Normocytic anemia (Primary Dx); Iron deficiency anemia due to chronic blood loss; Gynecomastia 03/11/2025 Orders Only [facility] - Medical Oncology [address] [place] [phone] Nica Goldsmith RN Iron deficiency anemia due to chronic blood loss (Primary Dx); Normocytic anemia 03/10/2025 Telephone [facility] - [facility] Medicine [address] [place] [phone] Marnie Roque CMA 03/09/2025 9:40 AM EDT Office Visit [facility] [address] [place] [phone] Cleo Espinoza, LOOP TACKER-PADDLE DYEING MACHINE OPERATOR Rheumatoid arthritis involving multiple joints (CMS-HCC); Chronic right shoulder pain; Essential hypertension 03/09/2025 [facility] [address] [place] [address] Nica Goldsmith RN Iron deficiency anemia due to chronic blood loss (Primary Dx); Normocytic anemia 03/09/2025 Travel 03/05/2025 9:17 AM EDT - 03/05/2025 9:29 AM EDT Surgery [facility] Procedures [address] [place] [address] Vinicius Tellez MD RADIOFREQUENCY ABLATION PERIPHERAL NERVE Right Cluneal [94699 (CPT )] 03/05/2025 8:37 AM EDT Anesthesia Event [facility] [address] [place] [address] Rich Johnson, Dev Mishra, LOOP TACKER-SMOKE INSPECTOR 03/05/2025 8:17 AM EDT - 03/05/2025 11:59 PM EDT Hospital Encounter [facility] [address] [place] [address] Vinicius Tellez MD Discharge Disposition: Home 03/05/2025 8:09 AM EDT - 03/05/2025 8:16 AM EDT Hospital Encounter [facility] - Radiology [address] [place] [address] Vinicius Tellez MD Other specified mononeuropathies of bilateral lower limbs Discharge Disposition: Home 02/16/2025 Travel 02/12/2025 7:34 AM EDT - 02/12/2025 7:47 AM EDT Surgery [facility] [address] [place] [address] Vinicius Tellez MD RADIOFREQUENCY ABLATION PERIPHERAL NERVE Left Cluneal [14967 (CPT )] 02/12/2025 7:32 AM EDT Anesthesia Event [facility] [address] [place] [address] Rich Johnson, Mathieu Hernandez, LOOP TACKER-SMOKE INSPECTOR 02/12/2025 6:54 AM EDT - 02/12/2025 11:59 PM EDT Hospital Encounter [facility] - Radiology [address] [place] [address] Vinicius Tellez MD Other specified mononeuropathies of bilateral lower limbs Discharge Disposition: Home 02/12/2025 6:37 AM EDT - 02/12/2025 6:53 AM EDT Hospital Encounter [facility] [address] [place] [address] Vinicius Tellez MD Discharge Disposition: Home 02/09/2025 Telephone [facility] [address] [place] [address] Teodora Arambula CNA 02/05/2025 Refill [facility] Family Medicine [address] [address] Cleo Espinoza APRN-PADDLE DYEING MACHINE OPERATOR 02/03/2025 10:00 AM EDT Office Visit [facility] - Family Medicine [address] [place] [address] Cleo Espinoza LOOP TACKER-PADDLE DYEING MACHINE OPERATOR Other specified mononeuropathies of bilateral lower limbs (Primary Dx); Obesity, morbid ([facility]); Mixed hyperlipidemia 02/03/2025 Travel 02/01/2025 Telephone [facility] - Family Medicine [address] [place] [address] Sharmin Suh, meat blender Of Care 02/01/2025 Telephone [facility] Internal Medicine [address] [place] [address] Nivia Nunez RN 01/29/2025 10:17 AM EDT Anesthesia Event [facility] [address] [facility] [address] Lena Gomes, LOOP TACKER-SMOKE INSPECTOR 01/29/2025 8:30 AM EDT - 01/29/2025 7:55 PM EDT Emergency [facility] - Emergency [address] [place] [address] Danica Smith MD Asif, Muhamid M, MD Difficulty with speech (Primary Dx); Confusion Discharge Disposition: [facility] 01/29/2025 7:31 AM EDT - 01/29/2025 7:33 AM EDT Hospital Encounter [facility] Pain Procedures [address] [facility] [address] Vinicius Tellez MD Discharge Disposition: Home 01/29/2025 Travel 01/13/2025 1:45 PM EDT Office Visit [facility] [address] [facility] [address] Carly Cole, PATatiC Other specified mononeuropathies of bilateral lower limbs (Primary Dx); Lumbosacral spondylosis without myelopathy 01/13/2025 Travel 01/05/2025 3:45 PM EDT Office Visit [facility] [address] [facility] [place] [phone] Nadir Herman MD Elevated PSA (Primary Dx) 12/31/2024 1:50 PM EDT - 12/31/2024 11:59 PM EDT Hospital Encounter [facility] - Lab [address] [place] [address] Elevated PSA Discharge Disposition: Home 12/31/2024 Travel 12/31/2024 Telephone [facility] [address] [facility] [place] [phone] Cierra Sanford CMA from Last 3 Months Immunizations Immunization Administration Dates Next Due COVID-19, mRNA, LNP-S, PF, 100mcg/0.5mL Dose 11/22/2020,11/18/2020,11/18/2020 COVID-19, mRNA, LNP-S, PF, 3 0mcg/0.3mL Dose 05/04/2022 Covid-19, Mrna, Lnp-s, Pf, 3 0 Mcg/0.3 Ml Dose, Tay-sucrose 04/24/2022 Influenza (IM) Preservative Free 10/11/2016 Influenza High Dose Preserva tive Free IM 06/18/2024 Influenza Vaccine, Quadrival ent, Adjuvanted 07/23/2023,07/11/2022 Influenza, High-dose, Quadrivalent 07/11/2023,,07/06/2020 Influenza, Injectable, MDCK, Quadrivalent 08/04/2019 Influenza, Injectable, Mdck, Preservative Free, Quad 08/26/2018,10/29/2017 Influenza, Unspecified 06/21/2021,07/06/2020 Pneumococcal Conjugate 13-Valent 03/31/2014 Pneumococcal Polysaccharide 06/16/2012 RSV, recombinant, protein thomas bunit RSVpreF, adjuvant reconstituted, 0.5 mL, PF 07/11/2023 Tdap 12/31/2022,09/30/2015 Zoster Vaccine Recombinant 2021,,06/12/2021,05/22 Family History Medical History Relation Name Comments Colon cancer Brother 1 Diabetes Brother 1 Hypertension Brother 1 Colon cancer Brother 2 Colon cancer Father Diabetes Mother Ovarian cancer Sister Relation Name Status Comments Brother 1 Brother 2 Father Mother Sister Social History Tobacco Use Types Packs/Day Years Used Date Smoking Tobacco: Former Cigarettes Q uit: 2002 Smokeless Tobacco: Never Tobacco Cessation:Counseling Given: Not Answered Alcohol Use Standard Drinks/Week Comments No 0 (1 standard drink = 0.6 oz pur e alcohol) [employer] Answer Date Recorded In the past 12 months has e [employer], gas, oil, or water [employer] threatened to shut off services in your [...] 01/29/2025 How often do you attend chur or quaker services? More than 4 times per year 01/29/2025 Do you belong to any clubs o r organizations such as sabianist groups, unions, fraternal or athletic groups, or [...] Answer Date Recorded Total Score 0 03/09/2025 [facility] - Occup[facility] [...] Recorded Do you need help finding a [facility] career [facility] and/or a training program? [...] on file Sexual Orientation Not on file Last Filed Vital Signs Vital Sign Reading Time Taken Comments Blood Pressure 151/69 03/17/2025 8:31 AM EDT Pulse 55 03/17/2025 8:31 AM EDT Temperature 36.8 C (98.3 F) 03/11/2025 8:22 AM EDT Respiratory Rate 20 03/17/2025 8:31 AM EDT Oxygen Saturation 99% 03/11/2025 8:22 AM EDT Inhaled Oxygen Concentration - - Weight 88.7 kg (195 lb 9.6 oz) 03/11/2025 8:22 A M EDT Height 172.7 cm (5' 7.99 ) 03/11/2025 8:22 AM ED T Body Mass Index 29.75 03/11/2025 8:22 AM EDT Plan of Treatment Upcoming Encounters Date Type Department Care Team (Late st Contact Info) Description 06/09/2025 9:40 AM EDT Office Visit [facility] - Family Medicine [address] [place] [phone] Cleo Espinoza, LOOP TACKER-PADDLE DYEING MACHINE OPERATOR [address] [place] [phone] 06/30/2025 8:15 AM EDT Office Visit [facility] [address] [place] [phone] Carly Cole PAGianna [address] [place] [address] 02/01/2026 1:00 PM EDT Office Visit [facility] [address] [place] [phone] Nadir Herman MD [facility] [place] [address] 03/17/2026 8:30 AM EDT Office Visit [facility] [place] [phone] [place] [address] [place] [address] [address] [place] [id number] Health Maintenance Due Date Last Done Comments Abdominal Aortic Aneurysm (A AA) Screen 2009 COVID-19 Vaccine (2023-11 5 season) 2024 06/21/2024, 05/04/2022, 04/24/2022, Additional history exists Medicare Annual Wellness Visit 06/08/2025 06/08/2024 , 05/30/2023 Influenza Vaccine 06/21/2025 06/18/2024, , 07/11/2023, Additional history exists Depression Screening 03/09/2026 03/09/2025 Fall Risk Screening 03/09/2026 03/09/2025 Tobacco Screening 03/17/2026 03/17/2025 DTaP,Tdap and Td Vaccines (3 - Td or Tdap) 12/31/2032 12/31/2022, 09/30/2015 Zoster (Shingles) Vaccine Completed 2020, 08/11/2021, 06/12/2021, Additional history exists Medical Devices Implanted Type Area Registered Dietetic Technician Device Identifier Shelf Expiration Date Model / Serial / Lot Knee Implant- [id number] Implanted:12/19 (Quantity not on file) Other Implant Knee Implant Procedures Procedure Name Priority Date/Time Associated Diagnosis Comments FL FLUOROSCOPY UP TO 1 HOUR Routine 03/05/2025 8:45 AM EDT Other specified mononeuropathies of bilateral lower limbs MO DESTRUCT BY NEURO AGENT; OTHER PERIPH NERVE 03/05/2025 8:36 AM EDT Other specified mononeuropathies of bilateral lower limbs FL FLUOROSCOPY UP TO 1 HOUR Routine 02/12/2025 7:40 AM EDT Other specified mononeuropathies of bilateral lower limbs MO DESTRUCT BY NEURO AGENT; OTHER PERIPH NERVE 02/12/2025 7:29 AM EDT Other specified mononeuropathies of bilateral lower limbs ECHO COMPLETE WO CONTRAST Routine 01/29/2025 3:16 PM EDT MR BRAIN WO CONT STAT 01/29/2025 12:3 0 PM EDT SARS/FLU A+B/RSV BY NAAT/MOLECULAR (M4RT COLLECTION TUBE) STAT 01/29/2025 9:44 AM EDT AMMONIA STAT 01/29/2025 9:42 AM EDT TROP I, HIGH SENSITIVITY 1 HOUR STAT 01/29/2025 9:42 AM EDT POCT NURSING URINE MACROSCOPIC UA Routine 01/29/2025 9:35 AM EDT ECG 12-LEAD STAT 01/29/2025 9:[address] CTA CAROTID STAT 01/29/2025 9:07 AM EDT URINALYSIS Routine 01/29/2025 9:05 AM EDT URINE CULTURE Routine 01/29/2025 9:[address] CTA HEAD STAT 01/29/2025 9:[address] BRAIN WO CONT STROKE ALERT STAT 01/29/2025 9:00 AM EDT XR CHEST 1 VIEW STROKE STAT 01/29/2025 8:52 AM EDT THYROID PROFILE INCLUDES TSH FT4 Add-On 01/29/2025 8:37 AM EDT HEMOGLOBIN A1C Add-On 01/29/2025 8:37 AM EDT CBC WITH AUTO DIFFERENTIAL STAT 01/29/2025 8:37 AM EDT APTT STAT 01/29/2025 8:37 AM EDT PROTIME & INR STAT 01/29/2025 8:37 AM EDT BASIC METABOLIC PANEL STAT 01/29/2025 8:37 AM EDT TROPONIN I, HIGH SENSITIVITY STAT 01/29/2025 8:37 AM EDT BEDSIDE GLUCOSE Routine 01/29/2025 8:32 AM EDT POCT URINALYSIS AUTO, W/O MICROSCOPY Routine 01/05/2025 3:36 PM EDT Elevated PSA PROSTATIC SPECIFIC ANTIGEN, DIAGNOSTIC Routine 12/31/2024 1:56 PM EDT Elevated PSA from Last 3 Months Results * Fluoroscopy less than one hour (03/05/2025 8:45 AM EDT) Only the most recent of2 resultswithin the time period is included. Narrative SYSTEMGENERATED, DOCUMENTATION - 03/05/2025 8:45 AM EDT No Reading Required. This procedure does not require a formal dictation. Non-Radiologist provider performed procedures can be reviewed under Post-Op, Procedure or Progress notes. For full report details, please reach out to your physician. Effective 03/07/2021 this image will be visible to you in MyChart. us Vinicius Tellez MD IMG FLUOROSCOPY ORDERABLES Fi nal Result * Echo complete W/O contrast (01/29/2025 3:16 PM EDT) LVOT stroke volume 94.13 ml XCELERA FS 26 28 - 44 % XCELERA LVIDd 5.30 4.72 - 6.55 cm XCELERA LVIDs 3.90 2.78 - 4.21 cm XCELERA IVS 1.40 0.6 - 1.1 cm XCELERA PW 1.20 0.6 - 1.1 cm XCELERA LVOT diameter 1.90 cm XCELERA TDI 5.00 cm/s XCELERA MV TDI E' (medial) 5.26 cm/s XCELERA LA Volume Index 44.3 mL/m2 XCELERA E/A ratio 0.65 XCELERA E wave deceleration time 289.00 msec XCELERA MV Peak E Jordan 101.00 cm/s XCELERA MV Peak A Jordan 156.00 cm/s XCELERA LA size 4.80 cm XCELERA Aortic root 3.40 cm XCELERA LA volume 87.70 cm3 XCELERA RV diastolic dimension (basal) 43.0 mm XCELERA TAPSE 1.98 cm XCELERA AV peak jordan 284.00 cm/s XCELERA LVOT peak jordan 1.63 m/s XCELERA AV VTI 67.50 cm XCELERA LVOT peak VTI 33.20 cm XCELERA AV mean gradient 18.00 mmHg XCELERA AV peak gradient 32.26 mmHg XCELERA AI pressure 1/2 time 343 ms XCELERA AV valve area 1.39 XCELERA Valve area - Index 0.7 XCELERA MV mean gradient 4.00 mmHg XCELERA MV peak gradient 10.63 mmHg XCELERA MV VTI 50.60 cm XCELERA MV valve area by continuity eq 1.86 XCELERA MV pressure 1/2 time 85.00 ms XCELERA MV valve area p 1/2 method 2.59 cm2 XCELERA TR Peak Jordan 2.1 m/s XCELERA TR peak gradient 17.98 mmHg XCELERA Inferior Vena Cava Diameter 1.80 cm XCELERA LV ESV A2C 90.00 mL XCELERA LV ESV A4C 85.00 mL XCELERA Mitral Valve Max Velocity 1.63 cm/s XCELERA LV RWT 2D 45.28 XCELERA AV Velocity Ratio 0.49 XCELERA IVC proximal 18 cm XCELERA Left Ventricle Mass 286.40979 [id number] 1 g XCELERA Interventricular Septum Diastolic Thickness by 2D 14 cm XCELERA EF - 3D Echo 63 % XCELERA RVID d 4.3 cm XCELERA TASV 13.3 cm/s XCELERA RA 2D Volume 29.2 mL/m2 XCELERA RA area 19.7 cm2 XCELERA Est. RA pressure 3 mmHg XCELERA ZLVIDS 1.04 XCELERA ZLVIDD -0.48 XCELERA Energy loss index 17.70 XCELERA Anatomical Region Laterality Modality Chest N/A Ultrasound Narrative 01/29/2025 4:37 PM EDT Left Ventricle: Left ventricle appears normal in size. Systolic function is normal with an ejection fraction of 60-65%. The quantitative EF by 3D imaging is 63%. Right Ventricle: Right ventricular size is mildly dilated. Systolic function is normal. Aortic Valve: The aortic valve is trileaflet. The leaflets are moderately calcified. There is mild to moderate regurgitation. There is moderate stenosis. The calculated aortic valve area is 1.39 cm2. The calculated aortic valve peak gradient is 32.26 mmHg. The calculated aortic valve mean gradient is 18.00 mmHg. Mitral Valve: There is moderate regurgitation. There is mild to moderate stenosis. The mean gradient is 4.00 mmHg. The peak gradient is 10.63 mmHg at rate 63 bpm. Tricuspid Valve: There is trace to mild regurgitation. There is no evidence of tricuspid valve stenosis. Left Ventricle Left ventricle appears normal in size. There is mild increased wall thickness/hypertrophy. Systolic function is normal with an ejection fraction of 60-65%. The quantitative EF by 3D imaging is 63%. No obvious regional wall motion abnormalities. Unable to assess diastolic function due to mitral stenosis and mitral annular calcification. Lateral E' is 5.00 cm/s. Medial E' is 5.26 cm/s. Right Ventricle Right ventricular size is mildly dilated. The right ventricular basal diameter is 43.0 mm. Systolic function is normal. Normal tricuspid annular plane systolic excursion. Left Atrium Left atrium volume index is moderately increased. The left atrial volume index is 44.3 mL/m2. Right Atrium Right atrium is mildly dilated. The right atrial area is 19.7 cm2. IVC/SVC The right atrial pressure is estimated at 3 mmHg. IVC appears normal. There is normal collapse with deep inspiration. Mitral Valve The leaflets are mildly thickened. There is moderate posterior annular calcification. There is moderate regurgitation. There is mild to moderate stenosis. The mean gradient is 4.00 mmHg. The peak gradient is 10.63 mmHg at rate 63 bpm. Tricuspid Valve The leaflets are mildly thickened. There is trace to mild regurgitation. There is no evidence of tricuspid valve stenosis. The right ventricular systolic pressure could not be estimated. RVSP is based on RA pressure of 3 mmHg. Aortic Valve The aortic valve is trileaflet. The leaflets are moderately calcified. There is mild to moderate regurgitation. There is moderate stenosis. The calculated aortic valve area is 1.39 cm2. The calculated aortic valve peak gradient is 32.26 mmHg. The calculated aortic valve mean gradient is 18.00 mmHg. Pulmonic Valve The pulmonic valve was not well visualized. There is trace regurgitation. There is no evidence of pulmonic valve stenosis. Ascending Aorta The aortic root is normal in size. Pericardium There is no pericardial effusion. Study Details A complete echo was performed using complete 2D, color flow Doppler and spectral Doppler. Overall the study quality was adequate. The study was difficult due to patient's poor acoustic windows. BP 148/72 Wall Scoring Baseline Score Index: 1.00 The left ventricular wall motion is normal. Chaz Krishnamurhty LOOP TACKER-PADDLE DYEING MACHINE OPERATOR CV ECHO ORDERABLES Final Result * MR brain without contrast (01/29/2025 12:30 PM EDT) Anatomical Region Laterality Modality Neuro, Head, Head and Neck, Neuro [place] N/A Magnetic Resonance 01/29/2025 12:3 4 PM EDT Narrative 01/29/2025 12:36 PM EDT MRI brain: HISTORY: Mental status changes. Slurred [...] Ricky Collins MD on 01/29/2025 12:36 PM Procedure Note Ricky Collins MD - 01/29/2025 MRI brain: HISTORY: Mental status changes. Slurred speech. Evaluate CVA. Multisequence multiplanar imaging of the brain was obtained utilizing aroutine protocol and compared to prior exam dated November 02, 2022. Thediffusion- weighted images and ADC map show no evidence of acuteintracranial ischemia or appreciable diffusion restriction. Ventricles arenormal in caliber. White matter signal characteristics appear appropriate. Nocortical signal characteristic abnormality. Flow-voids are normal incaliber and contour. The paranasal sinuses and mastoid air cells areclear. No mass, midline shift, or evidence of vasogenic edema. Orbitsappear symmetric. Cerebellar tonsils are normal position. IMPRESSION: No acute intracranial findings. Finalized by Ricky Colilns MD on 01/29/2025 12:36 PM Chaz Krishnamurthy LOOP TACKER-PADDLE DYEING MACHINE OPERATOR [facility] MRI ORDERABLES Final Result * SARS/FLU A+B/RSV by NAAT/Molecular (M4RT Collection Tube) (01/29/2025 9:44 AM EDT) FLU A PCR Negative Negative^Ne gative 01/29/2025 10:[address] [facility] FLU B PCR Negative Negative^Ne gative 01/29/2025 10:[address] [facility] RSV by PCR Negative Negative^Ne gative 01/29/2025 10:[address] [facility] SARS CoV 2 BY PCR Not Detected Not Detected^No t Detected 01/29/2025 10:[address] [facility] Comment: NOTE The Xpert Xpress SARS-CoV-2/Flu/RSV Plus test is a rapid, multiplexed real-time RT-PCR test intended for the simultaneous qualitative detection and differentiation of SARS-CoV-2, influenza A, influenza B and respiratory syncytial virus (RSV) viral RNA from individuals suspected of respiratory viral infection consistent with COVID-19 by their healthcare provider. This test has not been validated in asymptomatic patients. The Xpert Xpress SARS-CoV-2 test is intended for use by qualified and trained operators who are performing tests using either [employer] or [employer] systems and is limited to laboratories that meet the CLIA requirements to perform high and moderate complexity tests. The Xpert Xpress SARS-CoV-2/Flu/RSV Plus is only for use under the Food and Drug Administration's Emergency Use Authorization. Results are for the simultaneous detection and differentiation of SARS-CoV-2, influenza A, influenza B and RSV nucleic acids in clinical specimens. SARS-CoV-2, influenza A, influenza B and RSV RNA identified by this test are generally detectable in upper respiratory samples during the acute phase of infection. Positive results are indicative of the presence of the identified virus, but do not rule out bacterial infection or co-infection with other pathogens not detected by this test. Clinical correlation with patient history and other diagnostic information is necessary to determine patient infection status. The agent detected may not be the definite cause of disease. Negative results do not preclude SARS-CoV-2, influenza A, influenza B and RSV infection and should not be used as the sole basis for treatment or other patient management decisions. Negative results must be combined with clinical observations, patient history and epidemiological information. An Invalid result may occur with specimen-associated inhibition unable to be resolved with specimen repeat. Fact Sheet for Healthcare Providers: https://www.fda.gov/media/334737/download Fact Sheet for Patients: https://www.fda.gov/media/560863/download Nasopharyngeal structure / Unknown 01/29/2025 9:44 AM EDT 01/29/2025 9:58 AM EDT us Danica Smith MD MICROBIOLOGY - GENERAL ORDERA BLES Final Result Performing Organization Address [facility] Co de Phone Number [address] [address] * (ABNORMAL) Troponin I, High Sensitivity 1 Hour (01/29/2025 9:42 AM EDT) 1 Hour Trop I, High Sensitivity 28(H) <21 ng/L 01/29/2025 10:[address] [facility] Comment: Elevations of hs-Troponin may be due to causes other than myocardial ischemia. Recommend serial hs-Troponin testing be performed. For the initial evaluation and management of chest pain patients, refer to the algorithms linked below. Emergency Patient: [email or web address] Inpatient: [email or web address] Blood Serum / Unknown 01/29/2025 9 :42 AM EDT 01/29/2025 9:45 AM EDT us Danica Smith MD LAB BLOOD ORDERABLES Final Re sult Performing Organization Address [facility] Co de Phone Number [address] [address] * (ABNORMAL) Ammonia (01/29/2025 9:42 AM EDT) Ammonia <9(L) 11 - 35 umol/L 01/29/2025 10:[address] [facility] Blood (PLASMA) 01/29/2025 9: 42 AM EDT 01/29/2025 9:44 AM EDT Danica Smith MD LAB BLOOD ORDERABLES Final Re sult Performing Organization Address City/[facility]/ZIP Co de Phone Number [address] [place] [address] * POCT Nursing Urine Macroscopic UA (01/29/2025 9:35 AM EDT) Specific gravity MARCELA 1.020 1.003 - 1.035 01/29/2025 9:[address] [facility] Leukocyte esterase MARCELA Negative Negative^ Negative 01/29/2025 9:[address] [facility] Nitrite MARCELA Negative Negative^ Negative 01/29/2025 9:[address] [facility] Ph 7.5 5.0 - 8.5 01/29/2025 9:[address] [facility] Protein MARCELA Negative Negative^ Negative mg/dL 01/29/2025 9:[address] [facility] Urine glucose MARCELA Negative Negative^ Negative mg/dL 01/29/2025 9:[address] [facility] Ketones MARCELA Negative Negative^ Negative mg/dL 01/29/2025 9:[address] [facility] Urobilinogen MARCELA 0.2 <1.1 eu/dL 01/29/2025 9:[address] [facility] Bilirubin MARCELA Negative Negative^ Negative 01/29/2025 9:[address] [facility] Hemoglobin MARCELA Negative Negative^ Negative 01/29/2025 9:[address] [facility] Urine / Unknown 01/29/2025 9 :35 AM EDT 01/29/2025 9:33 AM EDT Danica Smith MD POINT OF CARE TEST ORDERABLES Final Result [facility] [address] [address] * EKG 12 lead (01/29/2025 9:27 AM EDT) 01/29/2025 9:27 AM EDT Danica Smith MD ECG ORDERABLES Final Result [facility]ACEMAST[facility] * CT angiogram carotid (01/29/2025 9:07 AM EDT) Anatomical Region Laterality Modality Neuro, Neck, Vascular, Neuro Covera N/A Computed Tomography 01/29/2025 9:14 AM EDT Narrative 01/29/2025 9:[address] CTA CAROTID CLINICAL HISTORY: ams, stroke [...] cavernous canal without significant flow limiting stenosis. 1.7 mm medially directed outpouching presumed infundibulum at the origin of a otherwise hypoplastic P-comm. Vertebral arteries: Patent. IMPRESSION: 1. No acute arterial occlusion, dissection. 2. CT Brain and CTA head findings dictated separately. All CT scans at this facility use dose modulation, iterative reconstruction, and/or weight based dosing when appropriate to reduce radiation dose to as low as reasonably achievable. Finalized by Shelton Cabrera on 01/29/2025 9:21 AM Procedure Note Shelton Cabrera MD - 01/29/2025 CT CTA CAROTID CLINICAL HISTORY: ams, stroke alert. COMPARISON: 11/01/2022. TECHNIQUE: Axial CT images were obtained through the neck following the uneventfuladministration of intravenous contrast. Sagittal and coronal reformattedimages were performed. MIP and volume rendered images were also postprocessed at a separate workstation to further define anatomy andpotential pathology. 100 mL of Omnipaque 350 intravenous contrast without complication. Degreeof luminal narrowing characterized using NASCET criteria. Hemodynamicallysignificant stenosis characterized as moderate or greater (>50%)narrowing. FINDINGS: Aortic arch: Normal caliber. Normal three-vessel arch. Brachiocephalic artery: Patent. Normal caliber. Right subclavian artery: Patent. Normal caliber. Right common carotid artery: Patent. Normal caliber. Left common carotid artery: Patent. Normal caliber. Left subclavian artery: Patent. Normal caliber. Carotid bifurcations: Calcifications without significant flow-limitingstenosis. Right internal carotid artery: Patent. Calcifications within the cavernouscanal without significant flow limiting stenosis. Left internal carotid artery: Patent. Calcifications within the cavernouscanal without significant flow limiting stenosis. 1.7 mm medially directedoutpouching presumed infundibulum at the origin of a otherwise hypoplasticP-comm. Vertebral arteries: Patent. IMPRESSION: 1. No acute arterial occlusion, dissection. 2. CT Brain and CTA head findings dictated separately. All CT scans at this facility use dose modulation, iterativereconstruction, and/or weight based dosing when appropriate to reduceradiation dose to as low as reasonably achievable. Finalized by Shelton Cabrera on 01/29/2025 9:21 AM us Danica Smith MD [facility] CT ORDERABLES Final Resul t * (ABNORMAL) Urinalysis (01/29/2025 9:05 AM EDT) Color YELLOW YELLOW^YE LLOW 01/29/2025 10:[address] [facility] Turbidity CLEAR CLEAR^PHOEBE AR 01/29/2025 10:[address] [facility] Specific gravity 1.015 1.003 - 1.035 01/29/2025 10:[address] [facility] Nitrite Negative Negative^ Negative 01/29/2025 10:[address] [facility] Ph urine 7.5 5.0 - 8.5 01/29/2025 10:[address] [facility] Leukocyte esterase Negative Negative^ Negative 01/29/2025 10:21 AM [facility] Protein Negative Negative^ Negative mg/dL 01/29/2025 10:21 AM [facility] Glucose, Ur Negative Negative^ Negative mg/dL 01/29/2025 10:21 AM [facility] Ketones urine Negative Negative^ Negative mg/dL 01/29/2025 10:21 AM [facility] Urobilinogen 0.2 <1.1 eu/dL 01/29/2025 10:21 AM [facility] Bilirubin, urine Negative Negative^ Negative 01/29/2025 10:21 AM [facility] Hemoglobin Trace(A) Negative^ Negative 01/29/2025 10:21 AM [facility] WBC 0 0 - 5 /hpf 01/29/2025 10:21 AM [facility] RBC 1 0 - 5 /hpf 01/29/2025 10:21 AM [facility] Squamous epithelium 1 0 - 5 /hpf 01/29/2025 10:21 AM [facility] Urine specimen collection, clean catch / Unknown 01/29/2025 9:05 AM EDT 01/29/2025 9:59 AM EDT Katalina Menendez APRN-PADDLE DYEING MACHINE OPERATOR URINE ORDERABLES Final Result [address], [place] [address] * Urine culture (01/29/2025 9:05 AM EDT) Culture NO GROWTH AT <1000 CFU/mL 01/30/2025 8:38 AM EDT [facility] Urine Urine specimen collection, clean catch / Unknown 01/29/2025 9:05 AM EDT 01/29/2025 12:54 PM EDT Katalina Menendez APRN-PADDLE DYEING MACHINE OPERATOR MICROBIOLOGY - GENERAL ORDERABLES Edited Result - Final ANGIE [facility] [address] [place] [address] * CT angiogram head (01/29/2025 9:04 AM EDT) Anatomical Region Laterality Modality Head, Neuro, Vascular, Head and Neck, Neuro [place] ra N/A Computed Tomography 01/29/2025 9:06 AM EDT Narrative 01/29/2025 9:[address] CTA HEAD CLINICAL HISTORY: Transient alteration of awareness, stroke. COMPARISON: Head CT same day. TECHNIQUE: Axial CT images were obtained through the head following the uneventful administration of intravenous contrast. Sagittal and coronal reformatted images were performed. MIP and volume rendered images were also post processed at a separate workstation to further define anatomy and potential pathology. 100 mL of [id number] intravenous contrast without complication. Arterial blood flow was measured to assist the stroke clinical team in the diagnosis of large vessel occlusion in patients undergoing screening for acute ischemic stroke using Rapid AI software when clinically indicated. FINDINGS: Calcified atherosclerotic disease carotid siphons, mild to moderate luminal narrowing, no occlusion. Otherwise the distal internal carotid arteries are unremarkable. Normal distal vertebral and basilar arteries. There is no significant stenosis in the anterior, middle or posterior cerebral arteries. No evidence of sizable aneurysm or malformation. No large vessel occlusion. IMPRESSION: 1. No large vessel arterial occlusion, significant stenosis, sizable aneursym, or malformation. 2. CTA carotid findings dictated separately. All CT scans at this facility use dose modulation, iterative reconstruction, and/or weight based dosing when appropriate to reduce radiation dose to as low as reasonably achievable. Finalized by Orlando Edgar MD on 01/29/2025 9:11 AM Procedure Note Orlando Edgar MD - 01/29/2025 CT CTA HEAD CLINICAL HISTORY: Transient alteration of awareness, stroke. COMPARISON: Head CT same day. TECHNIQUE: Axial CT images were obtained through the head following the uneventfuladministration of intravenous contrast. Sagittal and coronal reformattedimages were performed. MIP and volume rendered images were also postprocessed at a separate workstation to further define anatomy andpotential pathology. 100 mL of [id number] intravenous contrast without complication.Arterial blood flow was measured to assist the stroke clinical team in thediagnosis of large vessel occlusion in patients undergoing screening foracute ischemic stroke using Rapid AI software when clinically indicated. FINDINGS: Calcified atherosclerotic disease carotid siphons, mild to moderateluminal narrowing, no occlusion. Otherwise the distal internal carotidarteries are unremarkable. Normal distal vertebral and basilar arteries.There is no significant stenosis in the anterior, middle or posteriorcerebral arteries. No evidence of sizable aneurysm or malformation. No large vesselocclusion. IMPRESSION: 1. No large vessel arterial occlusion, significant stenosis, sizableaneursym, or malformation. 2. CTA carotid findings dictated separately. All CT scans at this facility use dose modulation, iterativereconstruction, and/or weight based dosing when appropriate to reduceradiation dose to as low as reasonably achievable. Finalized by Orlando Edgar MD on 01/29/2025 9:11 AM Danica Smith MD IM CT ORDERABLES Final Resul t * CT brain without contrast stroke alert (01/29/2025 9:00 AM EDT) Anatomical Region Laterality Modality Neuro, Head, Head and Neck, Neuro [place] N/A Computed Tomography 01/29/2025 9:01 AM EDT Narrative 01/29/2025 9:02 AM EDT CLINICAL HISTORY: . Stroke, follow up; assessment of stroke/hemorrhage: TECHNIQUE: CT brain without intravenous contrast. Automated exposure control was utilized. All CT scans at this facility use dose modulation, iterative reconstruction, and/or weight based dosing when appropriate to reduce radiation dose to as low as reasonably achievable. COMPARISON: 11/01/2022 FINDINGS: There is no mass effect or midline shift. The ventricular system is normal in size configuration. No intracranial hemorrhage. No loss of jefferson-white matter differentiation. No hyperdense vessels. Brainstem and cerebellum are negative. Intraorbital contents are unremarkable. No cerebellar tonsillar herniation. Corpus callosum, optic chiasm and pituitary gland are unremarkable. Well-aerated paranasal sinuses and mastoid air cells. No osseous lesions or skull fractures are identified. IMPRESSION: * No acute intracranial findings by CT evaluation. Finalized by Claudio Torres MD on 01/29/2025 9:02 AM Procedure Note Claudio Torres MD - 01/29/2025 CLINICAL HISTORY: . Stroke, follow up; assessment of stroke/hemorrhage: TECHNIQUE: CT brain without intravenous contrast. Automated exposure control wasutilized. All CT scans at this facility use dose modulation, iterativereconstruction, and/or weight based dosing when appropriate to reduceradiation dose to as low as reasonably achievable. COMPARISON: 11/01/2022 FINDINGS: There is no mass effect or midline shift. The ventricular system is normalin size configuration. No intracranial hemorrhage. No loss of jefferson-whitematter differentiation. No hyperdense vessels. Brainstem and cerebellumare negative. Intraorbital contents are unremarkable. No cerebellartonsillar herniation. Corpus callosum, optic chiasm and pituitary gland areunremarkable. Well-aerated paranasal sinuses and mastoid air cells. No osseous lesionsor skull fractures are identified. IMPRESSION: * No acute intracranial findings by CT evaluation. Finalized by Claudio Torres MD on 01/29/2025 9:02 AM Danica Smith MD IMG CT ORDERABLES Final Resul t * X-ray chest 1 view stroke (01/29/2025 8:52 AM EDT) Anatomical Region Laterality Modality Body, Chest N/A Computed Radiogr aphy 01/29/2025 8:53 AM EDT Narrative 01/29/2025 8:55 AM EDT Clinical history: Stroke alert. Confusion. Comparisons: 02/09/2019 through 11/01/2022. Findings: AP upright chest radiograph obtained 8:50 AM. There is hypoventilation with low lung volumes and crowding of bronchovascular markings in the lung bases. There is either some consolidation or atelectasis in the left lower lobe. No pleural effusion or pneumothorax. Heart size and pulmonary vasculature appear within normal limits. IMPRESSION: 1. Hypoventilation with low lung volumes and left basilar atelectasis or consolidation. Finalized by Efrain Garibay MD on 01/29/2025 8:55 AM Procedure Note Efrain Garibay MD - 01/29/2025 Clinical history: Stroke alert. Confusion. Comparisons: 02/09/2019 through 11/01/2022. Findings: AP upright chest radiograph obtained 8:50 AM. There ishypoventilation with low lung volumes and crowding of bronchovascularmarkings in the lung bases. There is either some consolidation oratelectasis in the left lower lobe. No pleural effusion or pneumothorax.Heart size and pulmonary vasculature appear within normal limits. IMPRESSION: 1. Hypoventilation with low lung volumes and left basilar atelectasis orconsolidation. Finalized by Efrain Garibay MD on 01/29/2025 8:55 AM us Danica Smith MD IMG DIAGNOSTIC IMAGING ORDERA BLES Final Result * (ABNORMAL) Troponin I, High Sensitivity (01/29/2025 8:37 AM EDT) Troponin I, High Sensitivity 27(H) <21 ng/L 01/29/2025 9:[address] [facility] Comment: Elevations of hs-Troponin may be due to causes other than myocardial ischemia. Recommend serial hs-Troponin testing be performed. For the initial evaluation and management of chest pain patients, refer to the algorithms linked below. Emergency Patient: [email or web address] Inpatient: [email or web address] Blood Serum / Unknown 01/29/2025 8 :37 AM EDT 01/29/2025 8:45 AM EDT us Danica Smith MD LAB BLOOD ORDERABLES Final Re sult [address], [place] [address] * Thyroid profile includes TSH FT4 (01/29/2025 8:37 AM EDT) TSH 0.72 0.49 - 4.67 uIU/mL 01/29/2025 4:[address] [facility] T4, free 1.28 0.61 - 1.60 ng/dL 01/29/2025 4:[address] [facility] PLASMA 01/29/2025 8:37 AM EDT 01/29/2025 8:45 AM EDT us Danica Smith MD LAB BLOOD ORDERABLES Final Re sult [facility] [address] [place] [address], [place] [address] * (ABNORMAL) CBC auto differential (01/29/2025 8:37 AM EDT) Pathologist [facility] White Blood Cells 9.3 4.0 - 11.0 X10E9/L 01/29/2025 8:49 AM [facility] RBC count 3.97(L) 4.10 - 5.70 X10E12/L 01/29/2025 8:49 AM [facility] Hemoglobin 11.1(L) 13.0 - 17.0 g/dL 01/29/2025 8:49 AM [facility] Hematocrit 33.3(L) 39 - 49 % 01/29/2025 8:49 AM [facility] MCV 84 80 - 100 fL 01/29/2025 8:49 AM [facility] MCH 27.8 27 - 34 pg 01/29/2025 8:49 AM [facility] MCHC 33.2 32 - 36 g/dL 01/29/2025 8:49 AM [facility] RDW 14.7 11.5 - 15.0 % 01/29/2025 8:49 AM [facility] Platelets 306 150 - 450 X10E9/L 01/29/2025 8:49 AM [facility] MPV 6.3(L) 7 - 12 fL 01/29/2025 8:[address] [facility] % neutrophils 84.6 % 01/29[facility]2025 8:[facility] % lymphocytes 6.2 % 01/29/2025 8:49 AM [facility] % monocytes 7.9 % 01/29/2025 8:49 AM [facility] % eosinophils 0.6 % 01/29/2025 8:49 AM [facility] % Basophils 0.7 % 01/29/2025 8:49 AM [facility] Neutrophils Absolute (A) 7.9(H) 1.5 - 6.6 X10E9/L 01/29/2025 8:49 AM [facility] Lymphocytes Absolute 0.6(L) 1.0 - 3.5 X10E9/L 01/29/2025 8:49 AM [facility] Monocytes Absolute 0.7 0 - 0.9 X10E9/L 01/29/2025 8:49 AM [facility] Eosinophils Absolute 0.1 0.0 - 0.4 X10E9/L 01/29/2025 8:49 AM [facility] Basophils Absolute 0.1 0.0 - 0.2 X10E9/L 01/29/2025 8:49 AM [facility] Blood Blood / Unknown 01/29/2025 8 :37 AM EDT 01/29/2025 8:45 AM EDT us Danica Smith MD LAB BLOOD ORDERABLES Final Re sult [facility] [address] [place] [address], [place] [address] * APTT (01/29/2025 8:37 AM EDT) aPTT 27 26 - 37 sec 01/29/2025 9:31 AM [facility] Comment:NEW REFERENCE RANGE Blood (PLASMA) 01/29/2025 8: 37 AM EDT 01/29/2025 8:45 AM EDT Danica Smith MD LAB BLOOD ORDERABLES Final Re sult Performing Organization Address [facility] [place] [address] * Protime & INR (01/29/2025 8:37 AM EDT) Protime 12.1 9.8 - 13.2 sec 01/29/2025 9:[address] [facility] Comment:NEW REFERENCE RANGE Inr 1.1 0.9 - 1.2 01/29/2025 9:[address] [facility] Blood (PLASMA) 01/29/2025 8: 37 AM EDT 01/29/2025 8:45 AM EDT Danica Smith MD LAB BLOOD ORDERABLES Final Re sult Performing Organization Address [facility] [place] [address] * Hemoglobin A1c (01/29/2025 8:37 AM EDT) Hemoglobin A1C 5.3 4.4 - 5.6 % 01/29/2025 10:46 PM EDT [facility] Comment: NOTE ADA Guidelines Result HgbA1c Normal : less than 5.7 % Prediabetes : 5.7 % to 6.4 % Diabetes : > 6.4 % Use with caution in patients with abnormal hemoglobin variants as the half-life of red blood cells and in vivo glycation rates are affected. Average glucose 105 mg/dL 10:46 PM EDT [facility] LAB PLASMA 01/29/2025 8:37 AM EDT 01/29/2025 8:45 AM EDT us Danica Smith MD LAB BLOOD ORDERABLES Final Re sult [facility] [address], [address] [place] [address] * (ABNORMAL) Basic Metabolic Panel (01/29/2025 8:37 AM EDT) Sodium 133(L) 134 - 146 mmol/L 01/29/2025 9:[address] [facility] Potassium, Bld 4.0 3.5 - 5.0 mmol/L 01/29/2025 9:[address] [facility] Chloride 98 98 - 109 mmol/L 01/29[facility]25 [facility] CO[facility] 27 22 - 32 mmol/L 01/29/2025 9:04 AM [facility] Anion gap 8 5 - 15 mmol/L 01/29/2025 9:04 AM [facility] BUN 27 5 - 27 mg/dL 01/29/2025 9:05 AM [facility] Creatinine 0.80 0.70 - 1.20 mg/dL 01/29/2025 9:05 AM [facility] Comment:METHOD TRACEABLE TO IDMS STANDARD Glucose 122(H) 65 - 99 mg/dL 01/29/2025 9:04 AM [facility] Calcium 8.6 8.5 - 10.5 mg/dL 01/29/2025 9:04 AM [facility] eGFR (CKD-EPI)non-ra ce dependent 89 >59 ml/min/1.7 3sq.m 01/29/2025 9:05 AM [facility] Comment: Reported eGFR is based on the CKD-EPI 2020 equation that does not use a race coefficient. PLASMA 01/29/2025 8:37 AM EDT 01/29/2025 8:45 AM EDT us Danica Smith MD LAB BLOOD ORDERABLES Final Re sult [facility] [address] [place] [address] * (ABNORMAL) Bedside Glucose *Place/Obtain serum glucose if >500 per glucometer. (01/29/2025 8:32 AM EDT) Bedside glucose 124(H) 65 - 99 mg/dL 01/29/2025 8:34 AM EDT [facility] Blood / Unknown 01/29/2025 8 :32 AM EDT 01/29/2025 8:34 AM EDT Danica Smith MD POINT OF CARE TEST ORDERABLES Final Result [facility] * POCT Urinalysis Auto, W/O Microscopy (01/05/2025 3:36 PM EDT) External Poct Urine Glucose Negative MANUALLY TRANSCRIBED RESULTS External Poct Urine Ketones Negative MANUALLY TRANSCRIBED RESULTS External Poct Urine Blood Negative MANUALLY TRANSCRIBED RESULTS External Poct Urine Ph 6.0 MANUALLY TRANSCRIBED RESULTS External Poct Urine Protein 1+ MANUALLY TRANSCRIBED RESULTS External Poct Urine Nitrite Negative MANUALLY TRANSCRIBED RESULTS External Poct Urine Leukocyte Esterase Negative MANUALLY TRANSCRIBED RESULTS Urine 01/05/2025 3:36 PM EDT Nadir Herman MD POINT OF CARE TEST ORDERAB LES Final Result Performing Organization Address [facility] Co de Phone Number MANUALLY TRANSCRIBED RESULTS * (ABNORMAL) Prostatic specific antigen, diagnostic (12/31/2024 1:56 PM EDT) PSA 6.24(H) 0.00 - 4.00 ng/mL 12/31/2024 6:29 PM EDT [facility] Comment: The method used for this test is Maxine [employer] DXI chemiluminescent immunoassay. Values obtained by different assay methods cannot be used interchangeably. Serum / Unknown 12/31/2024 1 :56 PM EDT 12/31/2024 1:57 PM EDT Becky MCGREGOR LAB BLOOD ORDERABLES Final Result [facility] [address], [address] [place] [address] from Last 3 Months Insurance [employer] MEDICARE [facility] [employer] Advance Directives * Full Code (Latest Code Status on File) Date Activated Date Inactivated Comments 01/29/2025 8:05 PM 01/30/2025 3:35 PM * Full Code Date Activated Date Inactivated Comments 01/29/2025 10:57 AM 01/29/2025 7:56 PM * Full Code Date Activated Date Inactivated Comments 11/01/2022 3:32 PM 11/02/2022 5:32 PM Care Teams Calculus Professor Relationship Specialty Start Date End Date Cleo Espinoza, LOOP TACKER-PADDLE DYEING MACHINE OPERATOR [address] [place] [address] PCP - General Family Medicine 12/26/22
--- OUTSIDE RECORDS SUMMARY | 2025-03-17 09:51 | XMS_ITS | Continuity of Care Document ---
Author Organization [facility] Address [address] [place] [address] Problems Unknown Problems Results Test Value / Unit Interpretation Reference Ran ge SARS-COV-2 (COVID19), NAAT[[id number]] Collected: 11/08/2020 02:12 PM Specimen Received: 11/09/2020 05:57 PM SARS-CoV-2 INTERPRETATION [[id number]] Negative Rafaela l See Note SARS-CoV-2 RNA NOT DETECTEDN egative results do not preclude SARS-CoV-2 infection and should notbe used as the sole basis for patient management decisions. Negativeresults must be combined with clinical observations, patient history,and epidemiological information. Optimum specimen types and timingfor peak viral levels during infections caused by SARS-CoV-2 have notbeen determined. Collection of multiple specimens or types ofspecimens may be necessary to detect virus. Improper specimencollection and handling, sequence variability under primers/probes,or organism present below the limit of detection may lead to falsenegative results. Positive and negative predictive values oftesting are highly dependent on prevalence. False negative testresults are more likely when prevalence is high. SOURCE [[id number]] NASOPHARYNGEAL Normal Note: Methodology is [employer] Real-Time RT-PCR. The expectedresult or reference range is NEGATIVE (Not Detected). For more information regarding COVID-19 testing to include clinicalinformation, methodology detail, intended use, FDA authorization andrecommended fact sheets for patients or healthcare providers, see [employer] Announcement: SARS-CoV-2 (COVID-19) by NAAT at URL below (note,fact sheets are provided by method given in report:https://www.[employer]/clinicians/client-communications/ Alternatively, see downloadable PDF fact sheet at:https://www.[employer]/XISFL-62-KX-PCR SARS-COV-2 (COVID19), NAAT[[id number]] Collected: 10/25/2020 03:07 PM Specimen Received: 10/26/2020 06:29 PM SARS-CoV-2 INTERPRETATION [[id number]] Negative Rafaela l See Note SARS-CoV-2 RNA NOT DETECTEDN egative results do not preclude SARS-CoV-2 infection and should notbe used as the sole basis for patient management decisions. Negativeresults must be combined with clinical observations, patient history,and epidemiological information. Optimum specimen types and timingfor peak viral levels during infections caused by SARS-CoV-2 have notbeen determined. Collection of multiple specimens or types ofspecimens may be necessary to detect virus. Improper specimencollection and handling, sequence variability under primers/probes,or organism present below the limit of detection may lead to falsenegative results. Positive and negative predictive values oftesting are highly dependent on prevalence. False negative testresults are more likely when prevalence is high. SOURCE [[id number]] NASOPHARYNGEAL Normal Note: Methodology is [employer] Real-Time RT-PCR. The expectedresult or reference range is NEGATIVE (Not Detected). For more information regarding COVID-19 testing to include clinicalinformation, methodology detail, intended use, FDA authorization andrecommended fact sheets for patients or healthcare providers, see [facility] Announcement: SARS-CoV-2 (COVID-19) by NAAT at URL below (note,fact sheets are provided by method given in report:https://www.[employer]/clinicians/client-communications/ Alternatively, see downloadable PDF fact sheet at:https://www.[employer]/FSFQH-66-DJ-PCR SARS-COV-2 (COVID19), NAAT[[id number]] Collected: 08/30/2020 02:11 PM Specimen Received: 08/31/2020 05:22 PM SARS-CoV-2 INTERPRETATION [[id number]] Negative Rafaela l See Note SARS-CoV-2 RNA NOT DETECTEDN egative results do not preclude SARS-CoV-2 infection and should notbe used as the sole basis for patient management decisions. Negativeresults must be combined with clinical observations, patient history,and epidemiological information. Optimum specimen types and timingfor peak viral levels during infections caused by SARS-CoV-2 have notbeen determined. Collection of multiple specimens or types ofspecimens may be necessary to detect virus. Improper specimencollection and handling, sequence variability under primers/probes,or organism present below the limit of detection may lead to falsenegative results. Positive and negative predictive values oftesting are highly dependent on prevalence. False negative testresults are more likely when prevalence is high. SOURCE [[id number]] NASOPHARYNGEAL Normal Note: Methodology is [employer] Real-Time RT-PCR. The expected result or reference range is NEGATIVE (Not Detected). For more information regarding COVID-19 testing to include clinicalinformation, methodology detail, intended use, FDA authorization andrecommended fact sheets for patients or healthcare providers, see [employer] Announcement: SARS-CoV-2 (COVID-19) by NAAT at URL below (note,fact sheets are provided by method given in report:https://www.[employer]/clinicians/client-communications/ Alternatively, see downloadable PDF fact sheet at:https://www.[employer]/RVTAV-06-IH-PCR Allergies, adverse reactions, alerts No known allergies and adverse reactions Medications No administered medications reported Vital Signs No vital signs reported Social History No smoking Hx information available
--- OUTSIDE RECORDS SUMMARY | 2025-03-17 09:52 | XMS_ITS | Encounter Summary ---
Author Organization [facility] Address [facility]-[id number] [address] [place] [address] Care Team Providers Care Curing Pickling Packer Name Role Phone Cleo Espinoza Primary Care Provid er Encounter Details Date Type Department Care Team (Late st Contact Info) Description 07/22/2024 Orders Only [facility] Internal Medicine - Family Medicine [address] [place] [address] Cleo Espinoza APRN-CNP [address] [address] Social History Tobacco Use Types Packs/Day Years Used Date Smoking Tobacco: Former Cigarettes Q uit: 2002 Smokeless Tobacco: Never Alcohol Use Standard Drinks/Week Comments No 0 (1 standard drink = 0.6 oz pur e alcohol) Social Connection and Isolat ion Panel [NHANES] Answer Date Recorded In a typical week, how many times do you talk on the phone with family, friends, or neighbors? More than three times a week 05/30/2023 How often do you get togethe r with friends or relatives? Once a week 05/30/2023 How often do you attend chur ch or taoist services? More than 4 times per year 05/30/2023 Do you belong to any clubs o r organizations such as buddhist groups, unions, fraternal or athletic groups, or school groups? No 05/30/2023 How often do you attend meet ings of the clubs or organizations you belong to? Never 05/30/2023 Are you , , di vorced, , never , or living with a partner? 05/30/2023 AUDIT-C Answer Date Recorded Q1: How often do you have a drink containing alcohol? Never 05/30/2023 Q2: How many drinks containi ng alcohol do you have on a typical day when you are drinking? Patient does not drink Q3: How often do you have si x or more drinks on one occasion? Never 05/30/2023 Overall Financial Resource Strain (CARDIA) Answe r Date Recorded How hard is it for you to pa y for the very basics like food, housing, medical care, and heating? Not hard at all 05/30/2023 PHQ-2 Answer Date Recorded Total Score 0 06/08/2024 [facility] of Occupat ional Health - Occupational Stress Questionnaire Answer Date Recorded Do you feel stress - tense, restless, nervous, or anxious, or unable to sleep at night because your mind is troubled all the time - these days? Not at all 05/30/2023 Exercise Vital Sign Answer Date Recorde d On average, how many days pe r week do you engage in moderate to strenuous exercise (like a brisk walk)? 0 days 05/30/2023 On average, how many minutes do you engage in exercise at this level? 0 min 05/30/2023 PRAPARE - Transportation Answer Date Re corded In the past 12 months, has l ack of transportation kept you from medical appointments or from getting medications? No 05/21 In the past 12 months, has l ack of transportation kept you from meetings, work, or from getting things needed for daily living? No 05/30/2023 Childcare Answer Date Recorded Do problems getting child ca re make it difficult for you to work or study? No 05/30/2023 Employment Answer Date Recorded Do you need help finding a [facility] career center and/or a training program? No 05/30/2023 Hunger Screening Answer Date Recorded Within the past 12 months we worried whether our food would run out before we got money to buy more. Never True 06/08/2024 Within the past 12 months th e food we bought just didn't last and we didn't have money to get more. Never True 06/08/2024 Purpose - Life Answer Date Recorded I have a purpose and direction in my life. Stron gly Agree 05/30/2023 Sex and Gender Information Value Date Recorded Sex Assigned at Not on file Legal Sex Male 11:32 AM EDT Gender Identity Not on file Sexual Orientation Not on file documented as of this encounter Plan of Treatment Upcoming Encounters Date Type Department Care Team (Late st Contact Info) Description 06/09/2025 9:40 AM EDT Office Visit [facility] Internal Medicine - Family Medicine [address] [place] [phone] Cleo Espinoza, PROFESSOR OF FAMILY MEDICINE-RECOVERY OPERATOR HELPER [address] [phone] 06/30/2025 8:15 AM EDT Office Visit [facility] [address] [place] [phone] Carly Cole, PA-C [address] [place], [place] [phone] 02/01/2026 1:00 PM EDT Office Visit [facility] [address] [place] [phone] Nadir Herman MD [address] [place] [address] 03/17/2026 8:30 AM EDT Office Visit [facility] - Medical Oncology [address] [place] [phone] Magan Katz MD [address] [place] [address] [address] [place] [phone] documented as of this encounter Visit Diagnoses Not on filedocumented in this encounter Additional Health Concerns Assessment Noted Time PHQ-9 Depression Total Score: 0 06/08/20 24 8:03 AM EDT A Body Mass Index follow-up plan has been documented for the patient 06/08/2024 12:52 PM EDT documented as of this encounter Care Teams Curing Pickling Packer Relationship Specialty Start Date End Date Cleo Espinoza APRN-ISHAN [address] [place] [address] PCP - General Family Medicine 12/26/22 documented as of this encounter
--- OUTSIDE RECORDS SUMMARY | 2025-03-17 09:52 | XMS_ITS | Encounter Summary ---
Author Organization [employer] Address [facility]-[id number] [address] [place] [address] Care Team Providers Care Lead Refiner Name Role Phone Cleo Espinoza APRN-SALESPERSON BURIAL NEEDS Primary Care Provid er Encounter Details Date Type Department Care Team (Late st Contact Info) Description [facility] [address] [place] [phone] Nai Ventura CMA Social History Tobacco Use Types Packs/Day Years [...] often do you attend chur ch or restorationist services? More than 4 times per year 05/30/2023 Do you belong to any clubs o r organizations such as episcopal groups, unions, fraternal or athletic groups, or [...] PHQ-2 Answer Date Recorded Total Score 0 07/23/2023 [facility] of Occupat ional Health - Occupational Stress [...] Recorded Do you need help finding a [facility] career center and/or a training program? No 05/30/2023 Purpose - Life Answer Date Recorded I have a purpose and direction in my life. Stron gly Agree 05/30/2023 Sex and Gender Information Value Date Recorded Sex Assigned at Not on file Legal Sex Male 11:32 AM EDT Gender Identity Not on file Sexual Orientation Not on file documented as of this encounter Miscellaneous Notes * Telephone Encounter - Nai Ventura CMA - 07/23/2023 4:44 PM EDT We got refill request for pt, but came from [facility]? Refills requested... Lovastatin, prednisone, HCTZ, amlodipine. Looks like pt was here??? * Telephone Encounter - PALOMO Ramos - 07/23/2023 4:44 PM EDT Patient goes back and forth with pharmacies. You will need to ask which place wants to fill his medications. He has been using [facility]. * Telephone Encounter - Nai Ventura CMA - 07/23/2023 4:44 PM EDT 90 day supply to [facility] please. Pt goes out of town for the winter, and said if he has refills he can get it filled in [place]. documented in this encounter Plan of Treatment Upcoming Encounters Date Type Department Care Team (Late st Contact Info) Description 06/09/2025 9:40 AM EDT Office Visit [facility] Internal Medicine - Family Medicine [address] [place] [phone] Cleo Espinoza APRN-ISHAN [address] [place] [phone] 06/30/2025 8:15 AM EDT Office Visit [facility] - [facility] Management Clinic [address] [place] [phone] Carly Cole, PATatiC [address] [place], [place] [phone] 02/01/2026 1:00 PM EDT Office Visit [facility] [address] [place] [phone] Nadir Herman MD [address] [place] [address] 03/17/2026 8:30 AM EDT Office Visit [facility] - Medical Oncology [address] [place] [phone] Magan Katz MD [address] [place] [address] [address] [place] [address] documented as of this encounter Visit Diagnoses Not on filedocumented in this encounter Additional Health Concerns Assessment Noted Time PHQ-9 Depression Total Score: 0 07/23/20 8:29 AM EDT A Body Mass Index follow-up plan has been documented for the patient 07/23/2023 2:25 PM EDT documented as of this encounter Care Teams Lead Refiner Relationship Specialty Start Date End Date Cleo Espinoza, RESEARCH STATISTICIAN-SALESPERSON BURIAL NEEDS [address] [place] [address] PCP - General Family Medicine 12/26/22 documented as of this encounter
--- OUTSIDE RECORDS SUMMARY | 2025-03-17 09:52 | XMS_ITS | Encounter Summary ---
Author Organization [facility] Address [facility] [place] [place]-[id number] [address] [place] [address] Care Team Providers Care Radio Producer Name Role Phone Cleo Espinoza APRN-TIN CAN LABORER Primary Care Provid er Encounter Details Date Type Department Care Team (Late st Contact Info) Description 07/23/2023 [facility]phone [facility] Medicine [address] [place] [phone] Clarissa Flores CMA Social History Tobacco Use Types Packs/Day [...] often do you attend chur ch or druze services? More than 4 times per year 05/30/2023 Do you belong to any clubs o r organizations such as zoroastrianism groups, unions, fraternal or athletic groups, or [...] Answer Date Recorded Total Score 0 07/23/2023 [facility] of Occupat ional Health - Occupational Stress [...] Recorded Do you need help finding a [employer] career center and/or a training program? No [...] encounter Miscellaneous Notes * Telephone Encounter - Clarissa Flores CMA - 07/23/2023 11:10 AM EDT Patient called back and stated that he seen Clif Markham in [facility] for his surgeon. He also stated that number is [phone] * Telephone Encounter - PALOMO Ramos - 07/23/2023 11:10 AM EDT Thank you! documented in this encounter Plan of Treatment Upcoming Encounters Date Type Department Care Team (Late st Contact Info) Description 06/09/2025 9:40 AM EDT Office Visit [facility] Internal Medicine - Family Medicine [address] [place] [phone] Cleo Espinoza APRN-ISHAN [address] [place] [phone] 06/30/2025 8:15 AM EDT Office Visit [facility] Management Clinic [address] [place] [phone] Carly Cole, PA-C [address] [facility] [place] [address] 02/01/2026 1:00 PM EDT [facility] [address] [place] [phone] Nadir Herman MD [address] [place] [address] 03/17/2026 8:30 AM EDT Office Visit [facility] - Medical Oncology [address] [place] [phone] Magan Katz MD [address] [place] [address] [address] [place] [phone] documented as of this encounter Visit Diagnoses Not on filedocumented in this encounter Additional Health Concerns Assessment Noted Time PHQ-9 Depression Total Score: 0 07/23/20 8:29 AM EDT A Body Mass Index follow-up plan has been documented for the patient 07/23/2023 2:25 PM EDT documented as of this encounter Care Teams Radio Producer Relationship Specialty Start Date End Date Cleo Espinoza, IP ATTORNEY-TIN CAN LABORER [address] [place] [address] PCP - General Family Medicine 12/26/22 documented as of this encounter
--- OUTSIDE RECORDS SUMMARY | 2025-03-17 09:52 | XMS_ITS | Encounter Summary ---
Author Organization [employer] Sys tem Address [facility] [place]-[id number] [address] [place] [address] Care Team Providers Care Body Coverer Name Role Phone Cleo Espinoza APRN-SHOT BAGGER Primary Care Provid er Encounter Details Date Type Department Care Team (Late st Contact Info) Description 12/24/2023 Telephone [facility] - Family Medicine [address] [place] [phone] Fanta Talley CMA Social History Tobacco Use Types Packs/Day [...] often do you attend chur ch or worship services? More than 4 times per year 05/30/2023 Do you belong to any clubs o r organizations such as roman catholic groups, unions, fraternal or athletic groups, or [...] PHQ-2 Answer Date Recorded Total Score 0 11/29/2023 [facility] of Occupat ional Health - Occupational Stress [...] Recorded Do you need help finding a [employer] [facility] career center and/or a training program? No 05/30/2023 Hunger Screening Answer Date Recorded Within the past 12 months we worried whether our food would run out before we got money to buy more. Never True 11/29/2023 Within the past 12 months th e food we bought just didn't last and we didn't have money to get more. Never True 11/29/2023 Purpose - Life Answer Date Recorded I have a purpose and direction in my life. Stron gly Agree 05/30/2023 Sex and Gender Information Value Date Recorded Sex Assigned at Not on file Legal Sex Male 11:32 AM EDT Gender Identity Not on file Sexual Orientation Not on file documented as of this encounter Miscellaneous Notes * Telephone Encounter - Fanta Talley CMA - 12/24/2023 1:55 PM EST This patient is scheduled for his Colonoscopy for H/O Polyps on January 14 10:00am. Please send the SuTabs to [facility]. He has a coupon for the tabs. * Telephone Encounter - Johnie Rain DO - 12/24/2023 1:55 PM EST Message noted. H&P done. Rx Sutab sent to [facility] documented in this encounter Plan of Treatment Upcoming Encounters Date Type Department Care Team (Late st Contact Info) Description 06/09/2025 9:40 AM EDT Office Visit [facility] Internal Medicine - Family Medicine [address] [place] [address] Cleo Espinoza, EQUIPMENT VALIDATION SPECIALIST-SHOT BAGGER [address] [place] [address] 06/30/2025 8:15 AM EDT Office Visit [facility] - [facility] Management Clinic [address] [place] [phone] Carly Cole PA-C [address], 2nd [address] [place], [place] [phone] 02/01/2026 1:00 PM EDT [facility] [address] [place] [address] [place] [address] Nadir Herman MD [facility] [place] [address] 03/17/2026 8:30 AM EDT Office Visit [facility] - Medical Oncology [address] [place] [address] Magan Katz MD [address] [facility] [address] [place] [address] documented as of this encounter Visit Diagnoses Not on filedocumented in this encounter Additional Health Concerns Assessment Noted Time PHQ-9 Depression Total Score: 0 11/29/19 24 9:17 AM EST A Body Mass Index follow-up plan has been documented for the patient 09/23/2023 1:04 PM EST documented as of this encounter Care Teams Body Coverer Relationship Specialty Start Date End Date Cleo Espinoza, EQUIPMENT VALIDATION SPECIALIST-SHOT BAGGER [address] [place] [phone] PCP - General Family Medicine 12/26/22 documented as of this encounter
--- OUTSIDE RECORDS SUMMARY | 2025-03-17 09:52 | XMS_ITS | Encounter Summary ---
Author Organization [id number] Address [facility] [id number] [address] [place] [address] Care Team Providers Care Data Management Manager Name Role Phone Cleo Espinoza Kyra IBRAHIM-REGIONAL VICE PRESIDENT SURGICAL SALES Primary Care Provid er Reason for Visit * Reason Onset Date Comments Med Refill 06/26/2022 Encounter Details Date Type Department Care Team (Late st Contact Info) Description 06/26/2022 Refill [facility] Internal Medicine - Family Medicine [address] [place] [address] Fanta Talley CMA Social History Tobacco Use [...] Description 06/09/2025 9:40 AM EDT Office Visit [facility] Internal Medicine - Family Medicine [address] [place] [address] Cleo Espinoza, DATA INTEGRITY SPECIALIST-REGIONAL VICE PRESIDENT SURGICAL SALES [address] [place] [address] 06/30/2025 8:15 AM EDT Office Visit [facility] - [facility] Management Clinic [address] [place] [address] Carly Cole, PA-C [address] 2nd Floor [place], [place] [phone] 02/01/2026 1:00 PM EDT Office Visit [facility] [address] [place] [address] [place] [phone] Nadir Herman MD [address] [place] [address] 03/17/2026 8:30 AM EDT Office Visit [facility] - Medical Oncology [address] [place] [phone] Magan Katz MD [address] [facility] [address] [place] [phone] documented as of this encounter Visit Diagnoses Not on filedocumented in this encounter Additional Health Concerns Assessment Noted Time PHQ-9 Depression Total Score: 0 07/19/20 20 11:02 AM EDT documented as of this encounter Care Teams Data Management Manager Relationship Specialty Start Date End Date Cleo Espinoza, DATA INTEGRITY SPECIALIST-REGIONAL VICE PRESIDENT SURGICAL SALES [address] [place] [phone] PCP - General Family Medicine 12/26/22 documented as of this encounter
--- OUTSIDE RECORDS SUMMARY | 2025-03-17 09:52 | XMS_ITS | Encounter Summary ---
Author Organization [facility] Address [facility] [place][id number] [address] [place] [address] Care Team Providers Care Admin Assistant Name Role Phone Espinoza Cleo Rae APRN-WOODWORKING MACHINE OPERATOR Primary Care Provid er Encounter Details Date Type Department Care Team (Late st Contact Info) Description 12/13/2022 Refill [facility] - Family Medicine [address] [place] [address] Nai Ventura CMA Social History Tobacco Use Types Packs/Day Years Used Date Smoking Tobacco: Former Cigarettes Q uit: 2002 Smokeless Tobacco: Never Alcohol Use Standard Drinks/Week Comments No 0 (1 standard drink = 0.6 oz pur e alcohol) PHQ-2 Answer Date Recorded Total Score 0 11/28/2022 Childcare Answer Date Recorded Childcare Unknown 03/31/2019 [...] have Coronavirus / COVID-19? No / Unsure 11/28/2022 11:01 AM EST documented as of this encounter Miscellaneous Notes * Telephone Encounter - Nai Ventura CMA - 12/13/2022 11:04 AM EST Refill on nasal spray please. documented in this encounter Plan of Treatment Upcoming Encounters Date Type Department Care Team (Late st Contact Info) Description 06/09/2025 9:40 AM EDT Office Visit [facility] - Family Medicine [address] [place] [phone] Cleo Espinoza APRN-CNP [address] [place] [phone] 06/30/2025 8:15 AM EDT Office Visit [facility] - [facility] Management Clinic [address] [place] [address] Carly Cole PATatiC [address] [facility], 2nd [place] [address] 02/01/2026 1:00 PM EDT Office Visit [facility] [address] [place] [address] Nadir Herman MD [address] [place] [address] 03/17/2026 8:30 AM EDT Office [facility] - Medical Oncology [address] [place] [address] Magan Katz MD [address] [place] [address] [address] [place] [address] documented as of this encounter Visit Diagnoses Not on filedocumented in this encounter Additional Health Concerns Assessment Noted Time PHQ-9 Depression Total Score: 0 11/28/19 11:42 AM EST A Body Mass Index follow-up plan has been documented for the patient 12/18/2022 4:19 PM EST documented as of this encounter Care Teams Admin Assistant Relationship Specialty Start Date End Date Cleo Espinoza APRN-ISHAN [address] [place] [address] PCP - General Family Medicine 12/26/22 documented as of this encounter
--- OUTSIDE RECORDS SUMMARY | 2025-03-17 09:52 | XMS_ITS | Encounter Summary ---
Author Organization [facility] Sys tem Address [facility] [id number] [address] [place] [address] Care Team Providers Care Fare Register Repairer Name Role Phone Cleo Espinoza APRN-ISHAN Primary Care Provid er Encounter Details Date Type Department Care Team (Late st Contact Info) Description 01/05/2024 Orders Only [facility] Internal [facility] - Family Medicine [address] [place] [address] Johnie Rain, [address] [place] [address] Personal history of colonic polyps (Primary Dx) Social History Tobacco Use Types Packs/Day Years [...] often do you attend chur ch or buddhism services? More than 4 times per year 05/30/2023 Do you belong to any clubs o r organizations such as jehovah's witness groups, unions, fraternal or athletic groups, or [...] PHQ-2 Answer Date Recorded Total Score 0 01/02/2024 [facility] of Occupat ional Health - [...] Recorded Do you need help finding a orthopaedic hospitalal career center and/or a training program? No 05/30/2023 Hunger Screening Answer Date Recorded Within the past 12 months we worried whether our food would run out before we got money to buy more. Never True 01/02/2024 Within the past 12 months th e food we bought just didn't last and we didn't have money to get more. Never True 01/02/2024 Purpose - Life Answer Date Recorded I [...] Description 06/09/2025 9:40 AM EDT Office Visit [facility] Internal Medicine - Family Medicine [address] [place] [phone] Cleo Espinoza, EXECUTIVE CASINO HOST-HARD METALS HAND ENGRAVER [address] [facility] [place] [phone] 06/30/2025 8:15 AM EDT Office Visit [facility] - [facility] Management Clinic [address] [place] [phone] Carly Cole, PA-C [address] [facility], 2nd Floor [place], [place] [phone] 02/01/2026 1:00 PM EDT Office Visit [facility] [address] [place] [address] Nadir Herman MD [facility] [place] [address] 03/17/2026 8:30 AM EDT Office Visit [facility] - Medical Oncology [address] [place] [phone] Magan Katz MD [address] [facility] [address] [place] [address] documented as of this encounter Visit Diagnoses Diagnosis Personal history of colonic polyps- Primary documented in this encounter Additional Health Concerns Assessment Noted Time PHQ-9 Depression Total Score: 0 01/02/20 24 7:59 AM EDT A Body Mass Index follow-up plan has been documented for the patient 01/06/2024 3:47 PM EDT documented as of this encounter Care Teams Fare Register Repairer Relationship Specialty Start Date End Date Cleo Espinoza, PATRICE-HARD METALS HAND ENGRAVER [address] [place] [address] PCP - General Family Medicine 12/26/22 documented as of this encounter
--- OUTSIDE RECORDS SUMMARY | 2025-03-17 09:52 | XMS_ITS | Encounter Summary ---
Author Organization [facility] tem Address [id number] [address] [place] [address] Care Team Providers Care Spring Winder Name Role Phone Cleo Espinoza APRN-DIVIDER OPERATOR Primary Care Provid er Encounter Details Date Type Department Care Team (Late st Contact Info) Description 02/09/2025 Telephone [facility] - Pain Management Clinic [address] [place] [phone] Teodora Arambula CNA Social History Tobacco Use Types Packs/Day Years Used Date Smoking Tobacco: Former Cigarettes Q uit: 2002 Smokeless Tobacco: Never Alcohol Use Standard Drinks/Week Comments No 0 (1 standard drink = 0.6 oz pur e alcohol) [facility] Utilities Answer Date Recorded In the past [...] often do you attend chur ch or anabaptist services? More than 4 times per year 01/29/2025 Do you belong to any clubs o r organizations such as hoahaoism groups, unions, fraternal or athletic groups, or [...] Answer Date Recorded Total Score 0 02/03/2025 [facility] of Occupat ional Health - Occupational Stress [...] Recorded Do you need help finding a the orthopedic specialty hospital career center and/or a training program? [...] 06/09/2025 9:40 AM EDT Office Visit [facility] Internal Medicine - Family Medicine [address] [place] [address] Cleo Espinoza, PUMP OPERATOR-DIVIDER OPERATOR [address] [facility] [place] [address] 06/30/2025 8:15 AM EDT Office Visit [facility] - [facility] Management Clinic [address] [place] [phone] Carly Cole, PATatiC [address] [facility], 2nd Floor [place], [place] [phone] 02/01/2026 1:00 PM EDT Office Visit [facility] [address] [facility] [address] [place] [address] Nadir Herman MD [address] [place] [address] 03/17/2026 8:30 AM EDT Office Visit [facility] - Medical Oncology [address] [place] [address] Magan Katz MD [address] [place] [address] [address] [place] [phone] documented as of this encounter Visit Diagnoses Not on filedocumented in this encounter Additional Health Concerns Assessment Noted Time PHQ-9 Depression Total Score: 0 02/04/20 25 10:08 AM EDT A Body Mass Index follow-up plan has been documented for the patient 09/09/2024 9:51 AM EST documented as of this encounter Care Teams Spring Winder Relationship Specialty Start Date End Date Cleo Espinoza, PUMP OPERATOR-DIVIDER OPERATOR [address] [place] [address] PCP - General Family Medicine 12/26/22 documented as of this encounter
--- OUTSIDE RECORDS SUMMARY | 2025-03-17 09:52 | XMS_ITS | Encounter Summary ---
Author Organization [facility] Sys tem Address [facility] [id number] [address] [place] [address] Care Team Providers Care Pan Reclaim Processor Name Role Phone Cleo Espinoza APRN-GEOSPATIAL IMAGE ANALYST Primary Care Provid er Encounter Details Date Type Department Care Team (Late st Contact Info) Description 06/17/2023 Orders Only [facility] Internal Medicine - Family Medicine [address] [place] [address] External, Scanning Provider Social History Tobacco Use Types Packs/Day Years [...] often do you attend chur ch or voodoo services? More than 4 times per year 05/30/2023 Do you belong to any clubs o r organizations such as adventist groups, unions, fraternal or athletic groups, or [...] PHQ-2 Answer Date Recorded Total Score 0 06/10/2023 [facility] of Occupat ional Health - [...] Recorded Do you need help finding a [employer] career center and/or a training program? [...] Medicine - Family Medicine [address] [place] [address] Cleo Espinoza, WASHER AND CAPPER MACHINE OPERATOR-GEOSPATIAL IMAGE ANALYST [address] [place] [phone] 06/30/2025 8:15 AM EDT Office Visit [facility] - Pain Management Clinic [address] [place] [phone] Carly Cole PAGianna [address], 2nd Floor [place], [place] [phone] 02/01/2026 1:00 PM EDT Office Visit [facility] [address] [place] [address] [place] [phone] Nadir Herman MD [address] [place] [address] 03/17/2026 8:30 AM EDT Office Visit [facility] - Medical Oncology [address] [place] [phone] [place] [address] [place] [address] [address] [place] [phone] documented as of this encounter Procedures Procedure Name Priority Date/Time Associated Diagnosis Comments MULTIPLE LABS Routine 06/17/2023 4:51 PM EDT documented in this encounter Results * Multiple labs (06/17/2023 4:51 PM EDT) us Scanning Provider External [facility] Final Result MANUALLY TRANSCRIBED RESULTS documented in this encounter Visit Diagnoses Not on filedocumented in this encounter Additional Health Concerns Assessment Noted Time PHQ-9 Depression Total Score: 0 06/10/20 23 10:33 AM EDT A Body Mass Index follow-up plan has been documented for the patient 06/10/2023 6:15 PM EDT documented as of this encounter Care Teams Pan Reclaim Processor Relationship Specialty Start Date End Date Cleo Espinoza, WASHER AND CAPPER MACHINE OPERATOR-GEOSPATIAL IMAGE ANALYST [address] [place] [address] PCP - General Family Medicine 12/26/22 documented as of this encounter
--- OUTSIDE RECORDS SUMMARY | 2025-03-17 09:52 | XMS_ITS | Encounter Summary ---
Author Organization [facility] Address [facility] [id number] [address] [place] [address] Care Team Providers Care Cold Saw Operator Name Role Phone Cleo Espinoza APRN-SALES CONSULTANT Primary Care Provid er Encounter Details Date Type Department Care Team (Late st Contact Info) Description 10/07/2023 [facility] [address] [place] [phone] Hien Sanchez CMA Social History Tobacco Use Types Packs/Day [...] often do you attend chur ch or congregational services? More than 4 times per year 05/30/2023 Do you belong to any clubs o r organizations such as anabaptism groups, unions, fraternal or athletic groups, or [...] PHQ-2 Answer Date Recorded Total Score 0 09/23/2023 [facility] of Occupat ional Health - Occupational Stress [...] Recorded Do you need help finding a [employer] career center and/or a training program? No 05/30/2023 Hunger Screening Answer Date Recorded Within the past 12 months we worried whether our food would run out before we got money to buy more. Never True 09/23/2023 Within the past 12 months th e food we bought just didn't last and we didn't have money to get more. Never True 09/23/2023 Purpose - Life Answer Date Recorded I have a purpose and direction in my life. Stron gly Agree 05/30/2023 Sex and Gender Information Value Date Recorded Sex Assigned at Not on file Legal Sex Male 11:32 AM EDT Gender Identity Not on file Sexual Orientation Not on file documented as of this encounter Miscellaneous Notes * Telephone Encounter - Hien Sanchez CMA - 10/07/2023 4:58 PM EST Pt called needs prednisone refilled * Telephone Encounter - PALOMO Ramos - 10/07/2023 4:58 PM EST Please inform patient I refilled 90 day supply on September 23 at his recent visit with me * Telephone Encounter - Hien Sanchez CMA - 10/07/2023 4:58 PM EST Called pt back , he answered but couldn't hear so he's going to call back documented in this encounter Plan of Treatment Upcoming Encounters Date Type Department Care Team (Late st Contact Info) Description 06/09/2025 9:40 AM EDT Office Visit [facility] Internal Medicine - Family Medicine [address] [place] [address] Cleo Espinoza APRN-CNP [address] [place] [address] 06/30/2025 8:15 AM EDT Office Visit [facility] - [facility] Management Clinic [address] [place] [phone] Carly Cole, PATatiC [address], [address] [place] [address] 02/01/2026 1:00 PM EDT Office Visit [facility] [address] [place] [address] Nadir Herman MD [address] [place], [place] [phone] 03/17/2026 8:30 AM EDT Office Visit [facility] - Medical Oncology [address] [place] [address] Magan Katz MD [address] [place] [address] [place] [address] documented as of this encounter Visit Diagnoses Not on filedocumented in this encounter Additional Health Concerns Assessment Noted Time PHQ-9 Depression Total Score: 0 09/23/20 9:41 AM EST A Body Mass Index follow-up plan has been documented for the patient 09/23/2023 1:04 PM EST documented as of this encounter Care Teams Cold Saw Operator Relationship Specialty Start Date End Date Cleo Espinoza, PATRICE-SALES CONSULTANT [address] [place] [address] PCP - General Family Medicine 12/26/22 documented as of this encounter
--- OUTSIDE RECORDS SUMMARY | 2025-03-17 09:52 | XMS_ITS | Encounter Summary ---
Author Organization [employer] Address [facility]-[id number] [address] [place] [address] Care Team Providers Care Student Services Coordinator Name Role Phone Cleo Espinoza Primary Care Provid er Reason for Visit * Reason Onset Date Comments Med Refill 05/27/2023 Encounter Details Date Type Department Care Team (Late st Contact Info) Description 05/27/2023 Refill [facility] - Family Medicine [address] [place] [phone] Cleo Espinoza APRN-CNP [address] [facility] [place] [place] [address] Social History Tobacco Use Types [...] often do you attend chur ch or alevism services? More than 4 times per year 05/30/2023 Do you belong to any clubs o r organizations such as yarsanism groups, unions, fraternal or athletic groups, or [...] PHQ-2 Answer Date Recorded Total Score 0 05/30/2023 [facility] of Occupat ional Health - Occupational Stress [...] Recorded Do you need help finding a ocal career center and/or a training program? No 05/30/2023 Purpose - Life Answer Date Recorded I have a purpose and direction in my life. Stron gly Agree 05/30/2023 Sex and Gender Information Value Date Recorded Sex Assigned at Not on file Legal Sex Male 11:32 AM EDT Gender Identity Not on file Sexual Orientation Not on file documented as of this encounter Functional Status * Audit-C Score Answer Date of Assessment Author 0 05/30/2023 1:30 PM EDT Viry Blackwell * Intimate Partner Violence Question Answer Date of Assessment Author Within the last year, have y ou been humiliated or emotionally abused in other ways by your partner or ex-partner? No 05/30/2023 1:30 PM EDT Viry Blackwell Within the last year, have y ou been afraid of your partner or ex-partner? No 05/30/2023 1:30 PM EDT Viry Blackwell Within the last year, have y ou been raped or forced to have any kind of sexual activity by your partner or ex-partner? No 05/30/2023 1:30 PM EDT Viry Blackwell Within the last year, have y ou been kicked, hit, slapped, or otherwise physically hurt by your partner or ex-partner? No 05/30/2023 1:30 PM EDT Viry Blackwell * Question Answer Date of Assessment Author Q1: How often do you have a drink containing alcohol? Never 05/30/2023 1:30 PM WANT Viry Blackwell Q2: How many drinks containing alcohol do you have on a typical day when you are drinking? Patient does not drink 05/30/2023 1:30 PM WANT Viry Blackwell Q3: How often do you have six or more drinks on one occasion? Never 05/30/2023 1:30 PM EDT Viry Blackwell documented as of this encounter Plan of Treatment Upcoming Encounters Date Type Department Care Team (Late st Contact Info) Description 06/09/2025 9:40 AM EDT Office Visit [facility] Internal Medicine - Family Medicine [address] [place] [phone] Cleo Espinoza, CERTIFIED PERSONAL FINANCE COUNSELOR-SPRING TESTER [address] [place] [address] 06/30/2025 8:15 AM EDT Office Visit [facility] [address] [place] [phone] Carly Cole, PA-C [address], [address] [place] [address] 02/01/2026 1:00 PM EDT Office Visit [facility] [address] [place] [address] [place] [phone] Nadir Herman MD [address] [place] [address] 03/17/2026 8:30 AM EDT Office Visit [facility] - Medical Oncology [address] [place] [phone] Magan Katz MD [address] [place] [address] [address] [place] [address] documented as of this encounter Visit Diagnoses Not on filedocumented in this encounter Additional Health Concerns Assessment Noted Time PHQ-9 Depression Total Score: 0 04/22/20 11:07 AM EDT A Body Mass Index follow-up plan has been documented for the patient 05/01/2023 11:08 AM EDT documented as of this encounter Care Teams Student Services Coordinator Relationship Specialty Start Date End Date Cleo Esipnoza, CERTIFIED PERSONAL FINANCE COUNSELOR-SPRING TESTER [address] [place] [address] PCP - General Family Medicine 12/26/22 documented as of this encounter
--- OUTSIDE RECORDS SUMMARY | 2025-03-17 09:52 | XMS_ITS | Encounter Summary ---
Author Organization [email or web address] [facility] tem Address [id number] [address] [place] [address] Care Team Providers Care Director Service Name Role Phone Cleo Espinoza APRN-JAVA ENTERPRISE ARCHITECT Primary Care Provid er Reason for Referral * Diagnostic Imaging (Routine) - Closed Specialty Diagnoses / Procedures Referred By Majo damian Referred To Contact Radiology Diagnoses Right wrist pain Procedures MR wrist right without contrast Carly Cole PA-C [address] [place] [address] Phone: tel: fax: [facility] [address] [place] [address] Phone: tel: Referral ID Status Reason Start Date Expiration Date Visits Re quested Visits Authorized [id number] Closed 01/15/2023 07/14/2023 1 1 Encounter Details Date Type Department Care Team (Late st Contact Info) Description 12/27/2022 Telephone [facility] - Pain Management Clinic [address] [place] [phone] Carly Cole PA-C [address] [place] [address] Social History Tobacco Use Types Packs/Day Years Used Date Smoking Tobacco: Former Cigarettes Q uit: 2002 Smokeless Tobacco: Never Alcohol Use Standard Drinks/Week Comments No 0 (1 standard drink = 0.6 oz pur e alcohol) PHQ-2 Answer Date Recorded Total Score 0 12/19/2022 Childcare Answer Date Recorded Childcare Unknown 03/31/2019 [...] have Coronavirus / COVID-19? No / Unsure 12/26/2022 9:05 AM EST documented as of this encounter Miscellaneous Notes * Telephone Encounter - Aditi Gupta - 12/27/2022 8:32 AM EST Need note edited please. Need note to say 100% relief for 2 days, now at 50%. Will not be able to get the approval with out. They are asking for the notes and imaging to be sent by today as well. Thanks * Telephone Encounter - Carly Cole PA-C - 12/27/2022 8:32 AM EST Note has been fixed Also he had and xr of his right wrist done which didn't not show an occult fracture but he needs anMRI of his right wrist. * Telephone Encounter - Yessenia Wilcox RN - 12/27/2022 8:32 AM EST Did you want the MRI with, without or with/without contrast? Order pended for MRI of Right wrist with and without contrast. Please review. * Telephone Encounter - Carly Cole PA-C - 12/27/2022 8:32 AM EST MRI without for the right wrist. Order changed and signed documented in this encounter Plan of Treatment Upcoming Encounters Date Type Department Care Team (Late st Contact Info) Description 06/09/2025 9:40 AM EDT Office Visit [facility] Internal Medicine - Family Medicine [address] [place] [phone] Cleo Espinoza, PACKAGE REINSPECTOR-JAVA ENTERPRISE ARCHITECT [address] [facility] [place] [phone] 06/30/2025 8:15 AM EDT Office Visit [facility] - Pain Management Clinic [address] [place] [phone] Carly Cole PA-C [address] [place], [place] [phone] 02/01/2026 1:00 PM EDT Office Visit [facility] [address] [place] [phone] Nadir Herman MD [address] [place] [address] 03/17/2026 8:30 AM EDT Office [facility] - Medical Oncology [address] [place] [phone] Magan Katz MD [address] [facility] [address] [place] [address] documented as of this encounter Results * MR wrist right without contrast (01/22/2023 7:18 AM EDT) Anatomical Region Laterality Modality Wrist, Upper Extremities, MSK Covera Right Magnetic Resonance 01/23/2023 9:29 AM EDT Narrative 01/23/2023 9:37 AM EDT Renal history: Wrist pain. MRI right wrist without contrast: 01/22/2023 PROCEDURE: Multiplanar multisequence imaging of the wrist was performed. FINDINGS: Loss of articular spacing is present throughout the wrist with subarticular cystic changes most prominently along the carpometacarpal joint margins. There is asymmetry of the proximal carpal row with irregularity of the scapholunate joint. Distal radial and ulnar cortex appears intact with mild chondral irregularity and thinning. Synovial thickening and distention of the joint recesses of present including the distal radial ulnar joint. The triangle fibrocartilage appears degenerated or displace. Musculotendinous structures around the wrist appear intact with no focal irregularity. IMPRESSION: Diffuse arthropathy within the wrist with chondral thinning and osseous irregularity suggests an inflammatory process. Inflammatory arthropathy or infection or possible. Finalized by Nadir Beltran MD on 01/23/2023 9:37 AM Procedure Note Nadir Beltran MD - 01/23/2023 Renal history: Wrist pain. MRI right wrist without contrast: 01/22/2023 PROCEDURE: Multiplanar multisequence imaging of the wrist was performed. FINDINGS: Loss of articular spacing is present throughout the wrist withsubarticular cystic changes most prominently along the carpometacarpaljoint margins. There is asymmetry of the proximal carpal row withirregularity of the scapholunate joint. Distal radial and ulnar cortexappears intact with mild chondral irregularity and thinning. Synovial thickening and distention ofthe joint recesses of present including the distal radial ulnar joint.The triangle fibrocartilage appears degenerated or displace. Musculotendinous structures around the wrist appear intact with no focalirregularity. IMPRESSION: Diffuse arthropathy within the wrist with chondral thinning and osseousirregularity suggests an inflammatory process. Inflammatory arthropathyor infection or possible. Finalized by Nadir Beltran MD on 01/23/2023 9:37 AM Carly Cole PA-C [employer] MRI ORDERABLES Final Re sult documented in this encounter Visit Diagnoses Diagnosis Right wrist pain Pain in joint, forearm Right wrist pain Pain in joint, forearm documented in this encounter Additional Health Concerns Assessment Noted Time PHQ-9 Depression Total Score: 0 12/20/19 10:27 AM EST A Body Mass Index follow-up plan has been documented for the patient 01/07/2023 7:27 AM EDT documented as of this encounter Care Teams Director Service Relationship Specialty Start Date End Date Cleo Espinoza, PACKAGE REINSPECTOR-JAVA ENTERPRISE ARCHITECT [address] [place] [address] PCP - General Family Medicine 12/26/22 documented as of this encounter
--- OUTSIDE RECORDS SUMMARY | 2025-03-17 09:52 | XMS_ITS | Encounter Summary ---
Author Organization [employer] Address [facility][id number] [address] [place] [address] Care Team Providers Care Inventory Control Clerk Name Role Phone Cleo Espinoza Kyra IBRAHIM-CHIEF TRANSFER AND PUMPHOUSE OPERATOR Primary Care Provid er Reason for Visit * Reason Onset Date Comments Med Refill 11/23/2022 Encounter Details Date Type Department Care Team (Late st Contact Info) Description 11/23/2022 Refill [facility] - Family Medicine [address] [place] [address] Fanta Talley CMA Social History Tobacco Use Types Packs/Day Years Used Date Smoking Tobacco: Former Cigarettes Q uit: 2002 Smokeless Tobacco: Never Alcohol Use Standard Drinks/Week Comments No 0 (1 standard drink = 0.6 oz pur e alcohol) PHQ-2 Answer Date Recorded Total Score 0 11/09/2022 Childcare Answer Date Recorded Childcare Unknown 03/31/2019 [...] have Coronavirus / COVID-19? No / Unsure 11/26/2022 9:58 AM EST documented as of this encounter Plan of Treatment Upcoming Encounters Date Type Department Care Team (Late st Contact Info) Description 06/09/2025 9:40 AM EDT Office Visit [facility] - Family Medicine [address] [place] [phone] Cleo Espinoza, REFRIGERATION UNIT REPAIRER-CHIEF TRANSFER AND PUMPHOUSE OPERATOR [address] [place] [address] 06/30/2025 8:15 AM EDT Office Visit [facility] - [facility] Management Clinic [address] [place] [phone] Carly Cole, PA-C [address] [place] [address] 02/01/2026 1:00 PM EDT Office Visit [facility] [address] [place] [address] [place] [phone] Nadir Herman MD [address] [place] [address] 03/17/2026 8:30 AM EDT Office Visit [facility] - Medical Oncology [address] [place] [phone] Magan Katz MD [address] [facility] [address] [place] [address] [phone] documented as of this encounter Visit Diagnoses Not on filedocumented in this encounter Additional Health Concerns Assessment Noted Time PHQ-9 Depression Total Score: 0 11/09/19 10:43 AM EST documented as of this encounter Care Teams Inventory Control Clerk Relationship Specialty Start Date End Date Cleo Espinoza, REFRIGERATION UNIT REPAIRER-CHIEF TRANSFER AND PUMPHOUSE OPERATOR [address] [place] [address] PCP - General Family Medicine 12/26/22 documented as of this encounter
--- OUTSIDE RECORDS SUMMARY | 2025-03-17 09:52 | XMS_ITS | Encounter Summary ---
Author Organization [facility] tem Address [facility][id number] [address] [place] [address] Care Team Providers Care Caddie Name Role Phone Alexis Cleo Kyra IBRAHIM-PROPERTY SPECIALIST Primary Care Provid er Encounter Details Date Type Department Care Team (Late st Contact Info) Description 12/05/2021 Abstract [facility] - Medical Oncology [address] [place] [phone] Carmen Haji Social History Tobacco Use Types Packs/Day Years [...] have Coronavirus / COVID-19? No / Unsure 12/07/2021 10:23 AM EST documented as of this encounter Plan of Treatment Upcoming Encounters Date Type Department Care Team (Late st Contact Info) Description 06/09/2025 9:40 AM EDT [facility] [address] [place] [phone] Cleo Espinoza, MARKETING ACCOUNT MANAGER-PROPERTY SPECIALIST [address] [place] [phone] 06/30/2025 8:15 AM EDT Office Visit [facility] - Pain Management Clinic [address] [place] [phone] Carly Cole, PA-C [address] [place] [address] 02/01/2026 1:00 PM EDT Office Visit [facility] [address] [place] [phone] Nadir Herman MD [address] [place] [address] 03/17/2026 8:30 AM EDT Office Visit [facility] - Medical Oncology [facility] [place] [phone] Magan Katz MD [address] [place] [address] [address] [place] [address] [phone] documented as of this encounter Visit Diagnoses Not on filedocumented in this encounter Additional Health Concerns Assessment Noted Time PHQ-9 Depression Total Score: 0 07/19/20 20 11:02 AM EDT documented as of this encounter Care Teams Caddie Relationship Specialty Start Date End Date Cleo Espinoza, MARKETING ACCOUNT MANAGER-PROPERTY SPECIALIST [address] [place] [phone] PCP - General Family Medicine 12/26/22 documented as of this encounter
--- OUTSIDE RECORDS SUMMARY | 2025-03-17 09:52 | XMS_ITS | Encounter Summary ---
Author Organization [facility] [employer] Address [facility]-[id number] [address] [place] [address] Care Team Providers Care Reproductive Surgeon Name Role Phone Alexis Cleo Rae APRN-ISHAN Primary Care Provid er Encounter Details Date Type Department Care Team (Late st Contact Info) Description 11/06/2022 Telephone [facility] - Family Medicine [address] [place] [address] Jackson Blackwell, DO [address] [place] [address] Social History Tobacco Use Types Packs/Day Years [...] have Coronavirus / COVID-19? No / Unsure 11/09/2022 10:30 AM EST documented as of this encounter Miscellaneous Notes * Telephone Encounter - Chanell Hansen - 11/06/2022 10:57 AM EST Patient was in the ER on 11/01 and was to make a follow up with you, theres not an opening until the of this month, would it be okay if I put him in on Saturday? * Telephone Encounter - Jackson Blackwell DO - 11/06/2022 10:57 AM EST ok documented in this encounter Plan of Treatment Upcoming Encounters Date Type Department Care Team (Late st Contact Info) Description 06/09/2025 9:40 AM EDT Office Visit [facility] Internal Medicine - Family Medicine [address] [place] [phone] Cleo Espinoza, MULTIMEDIA TECHNICIAN-FINANCIAL SECRETARY [address] [phone] 06/30/2025 8:15 AM EDT Office Visit [facility] - Pain Management Clinic [address] [place] [phone] Carly Cole, PA-C [address] [facility], [address]nd [place] [address] 02/01/2026 1:00 PM EDT Office Visit [facility] [address] [phone] Nadir Herman MD [address] [place] [address] 03/17/2026 8:30 AM EDT Office Visit [facility] - Medical Oncology [address] [place] [phone] Magan Katz MD [address] [facility] [address] [place] [address] documented as of this encounter Visit Diagnoses Not on filedocumented in this encounter Additional Health Concerns Assessment Noted Time PHQ-9 Depression Total Score: 0 07/19/20 20 11:02 AM EDT documented as of this encounter Care Teams Reproductive Surgeon Relationship Specialty Start Date End Date Cleo Espinoza, MULTIMEDIA TECHNICIAN-FINANCIAL SECRETARY [address] [place] [address] PCP - General Family Medicine 12/26/22 documented as of this encounter
--- OUTSIDE RECORDS SUMMARY | 2025-03-17 09:52 | XMS_ITS | Encounter Summary ---
Author Organization [facility] tem Address [facility][id number] [address] [place] [address] Care Team Providers Care Resist Coater Developer Name Role Phone Cleo Espinoza Kyra IBRAHIM-GREENS OR GROUNDS SUPERINTENDENT Primary Care Provid er Encounter Details Date Type Department Care Team (Late st Contact Info) Description 01/03/2023 Orders Only [facility] - Family Medicine [address] [place] [phone] External, Scanning Provider Social History Tobacco Use [...] have Coronavirus / COVID-19? No / Unsure 01/01/2023 11:54 AM EDT documented as of this encounter Plan of Treatment Upcoming Encounters Date Type Department Care Team (Late st Contact Info) Description 06/09/2025 9:40 AM EDT [facility] [address] [place] [phone] Cleo Espinoza, BLOWING ENGINEER-GREENS OR GROUNDS SUPERINTENDENT [address] [place] [phone] 06/30/2025 8:15 AM EDT Office Visit [facility] - Pain Management Clinic [address] [place] [phone] Carly Cole, PAGianna [address] [place] [address] 02/01/2026 1:00 PM EDT Office Visit [facility] [address] [place] [address] [address] [place] [phone] Nadir Herman MD [address] [place] [address] 03/17/2026 8:30 AM EDT Office Visit [facility] - Medical Oncology [address] [place] [phone] [place] [address] [place] [address] [address] [place] [address] [phone] documented as of this encounter Procedures Procedure Name Priority Date/Time Associated Diagnosis Comments MULTIPLE LABS Routine 01/03/2023 documented in this encounter Results * Multiple labs (01/03/2023) us Scanning Provider External [place] [facility] Final Result MANUALLY TRANSCRIBED RESULTS documented in this encounter Visit Diagnoses Not on filedocumented in this encounter Additional Health Concerns Assessment Noted Time PHQ-9 Depression Total Score: 0 12/20/19 10:27 AM EST A Body Mass Index follow-up plan has been documented for the patient 01/07/2023 7:27 AM EDT documented as of this encounter Care Teams Resist Coater Developer Relationship Specialty Start Date End Date Cleo Espinoza, BLOWING ENGINEER-GREENS OR GROUNDS SUPERINTENDENT [address] [place] [phone] PCP - General Family Medicine 12/26/22 documented as of this encounter
--- OUTSIDE RECORDS SUMMARY | 2025-03-17 09:52 | XMS_ITS | Patient Health Record ---
Author Organization [facility] [place] Address [address] [place] [address] Care Team Providers Care Internal Recruiter Name Role Phone Cleo Espinoza Primary Care Provider Unavaila ble Allergies Allergen (clinical drug ingredient) Drug/Non Drug Allergy documented on EMR Reaction Allergy Type Onset Date Status Novocain (procaine) Notes: heart raising Drug Allergy Active epinephrine Epinephrine heart raising Drug Allergy Active Reason For Referral No Information Medications Medication SIG (Take, Route, Frequency, Duration) Notes Start Date End Date Status Methotrexate 2.5 MG 10 tabs Orally once a week for 90 days 06/21/2022 Not-Taking [facility] Vitamin C 1000 mg 1 tablet DAILY Not-Taking SM Arthritis Pain Relief 650 mg 1 tablet QID Not-Taking Tadalafil 5 MG 1 tablet as needed Orally Once a day for 30 day(s) Not-Taking Tylenol Arthritis Pain Not-Taking traMADol HCl 50MG 1 tablet as needed Orally BID for 7 days prn Not-Taking hydroCHLOROthiazide 25 mg 1 tablet DAILY Active Vitamin D3 Maximum Strength 5000 UNIT 1 capsule Orally Once a day once a week Not-Taking Vitamin B12 once a week Not-Ta sumaya amLODIPine Besylate 5 MG 1 tablet Orally Once a day for 30 day(s) Active Zinc - 1 tablet Orally Once a day Active oxyCODONE-Acetaminophen 5-325 MG 1 tablet as needed Orally prn Active Hydroxychloroquine Sulfate 200 MG 1 tablet Orally BID for 90 days Active vitamin E 400 intl units 1 capsule DAILY every 3 days Active Lovastatin 40 mg 1 tablet Daily Active Gabapentin 400 MG 1 capsule Orally TID Not-Taking Aspirin 81 MG 1 capsule Orally Once a day for 30 day(s) Active BD TB Syringe 27G X 1/2 1 ML USE WEEKLY FOR METHOTREXATE INJECTION for 84 Not-Taking predniSONE 5 MG 1 tablet Orally daily for 30 days Active Magnesium Calcium, Magnesium and Zinc 1 tablet DAILY Not-Brandon ing Social History Tobacco Use: Social History Observation Description Date Details (start date - stop date) Former Smoker NA - NA Tobacco Use/Smoking Question Answer Notes Patient is a former smoker When did you stop smoking? 1973 How long has it been since you last smoked? 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) Active confirmed Problem 73903699762589475 Pressure ulcer of sacral region, stage 2 (L89.152) Active confirmed Problem 211058272759735 Primary osteoarthritis of left knee (M17.12) Active confirmed Problem 04477025 Lumbar degenerative disc disease (M51.36) Active confirmed Problem 129444068 Diverticulosis (K57.90) Active confirmed Problem 509818644 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) Active confirmed Problem C-reactive protein abnormal (002906612) CRP elevated (R79.82) Active confirmed Problem 543970732 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) Active confirmed Problem Leukocytosis (697760918) Leukocytosis, unspecified type (D72.829) Active confirmed Problem 13896525 Duodenal ulcer (K26.9) Active confirmed Problem 732719835 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 confirmed Problem 4415932526447212 Erosive gastrit is (K29.60) Active confirmed Plan Of Treatment Pending Test Test Name Order Date CMP (COMPLETE METABOLIC PANEL) CBC WITH DIFF 2021 CBC WITH DIFF 07/05/2020 CBC WITH DIFF 03/01/2021 CBC WITH DIFF 05/22/2021 PROTEIN ELECTROPHORESIS, BLOOD (SEP) 07/2023 FLUORESCENT KASHIF w TITER (ANTINUCLEAR ANT IBODIES) 01/28/2023 SED RATE and CRP 05/22/2021 FLUORESCENT KASHIF w TITER REFLEX TALI TESTI NG 01/28/2023 Future Test Test Name Order Date CRP (C REACTIVE PROTEIN) EXTENDED RANGE 10/30/2018 CRP (C REACTIVE PROTEIN) EXTENDED RANGE 05/31/2019 MTX PANEL (CBC, ALB,ALT, AST, ALK and CR EA) 05/31/2019 CRP (C REACTIVE PROTEIN) EXTENDED RANGE 09/30/2019 MTX PANEL (CBC, ALB,ALT, AST, ALK and CR EA) 09/30/2019 CRP (C REACTIVE PROTEIN) EXTENDED RANGE 12/01/2019 MTX PANEL (CBC, ALB,ALT, AST, ALK and CR EA) 12/01/2019 CRP (C REACTIVE PROTEIN) EXTENDED RANGE 01/30/2020 MTX PANEL (CBC, ALB,ALT, AST, ALK and CR EA) 01/30/2020 MTX PANEL (CBC, ALB,ALT, AST, ALK and CR EA) 02/27/2022 SED RATE and CRP 02/27/2022 MTX PANEL (CBC, ALB,ALT, AST, ALK and CR EA) 04/29/2022 SED RATE and CRP 04/29/2022 MTX PANEL (CBC, ALB,ALT, AST, ALK and CR EA) 06/30/2022 SED RATE and CRP 06/30/2022 MTX PANEL (CBC, ALB,ALT, AST, ALK and CR EA) 08/30/2022 SED RATE and CRP 08/30/2022 MTX PANEL (CBC, ALB,ALT, AST, ALK and CR EA) 10/30/2022 SED RATE and CRP 10/30/2022 MTX PANEL (CBC, ALB,ALT, AST, ALK and CR EA) 12/28/2022 SED RATE and CRP 12/28/2022 MTX PANEL (CBC, ALB,ALT, AST, ALK and CR EA) 02/27/2023 SED RATE and CRP 02/27/2023 Insurance Providers Payer Name Payer Address Payer Phone Subscriber Number Group Number Insured Name Patient Relationship to Insured Coverage Start Date Coverage End Date [employer] MEDICARE [address] LEVY MYERS [id number] Dean Nieto Self - patient is the insured 3 Medications Administered Medication Instructions Date of Administration Dosage Notes Kenalog, 40 mg/mL 04/02/2016 40 mg Kenalog, 40 mg/mL 10/23/2018 40 mg Kenalog, 40 mg/mL 03/26/2019 40 mg Kenalog-40 06/04/2023 40 mg Medical (General) History Medical History History ICD Code History of stroke syndrome History of hypertension History of gallbladder problems History of urinary calculus History of fracture of the ankle History of arthralgia of the shoulder re gion History of rheumatoid arthritis left torn posterior cruciate ligament diarrhea stomach ulcers Shingles Covid x 3 Surgical History Surgery Date(Month/Year) 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
--- OUTSIDE RECORDS SUMMARY | 2025-03-17 09:52 | XMS_ITS | Encounter Summary ---
Author Organization [facility] Address [id number] [address] [place] [address] Care Team Providers Care Cardiac Tech Name Role Phone Cleo Espinoza APRN-COMMERCIAL RELATIONSHIP MANAGER Primary Care Provid er Encounter Details Date Type Department Care Team (Late st Contact Info) Description 07/15/2023 Orders Only [facility] Internal Medicine - Family Medicine [address] [place] [address] External, Scanning Provider Social History Tobacco Use [...] often do you attend chur ch or mandaeism services? More than 4 times per year 05/30/2023 Do you belong to any clubs o r organizations such as holiness groups, unions, fraternal or athletic groups, or [...] PHQ-2 Answer Date Recorded Total Score 0 07/01/2023 [facility] of Occupat ional Health - Occupational [...] Recorded Do you need help finding a [employer] career center and/or a training program? [...] Medicine - Family Medicine [address] [place] [phone] Cleo Espinoza, FILTER WASHER-COMMERCIAL RELATIONSHIP MANAGER [address] [place] [phone] 06/30/2025 8:15 AM EDT [facility] [address] [place] [phone] Carly Cole PAGianna [address] [place], [place] [phone] 02/01/2026 1:00 PM EDT Office Visit [facility] [address] [place] [address] [place] [phone] Nadir Herman MD [address] [place] [address] 03/17/2026 8:30 AM EDT Office Visit [facility] - Medical Oncology [address] [place] [phone] [place] [address] [place] [address] [address] [place] [address] [phone] documented as of this encounter Procedures Procedure Name Priority Date/Time Associated Diagnosis Comments ECHO DOPPLER Routine 09/27/2022 11:24 AM EST documented in this encounter Results * Echo Doppler (09/27/2022 11:24 AM EST) Anatomical Region Laterality Modality Chest N/A Ultrasound us Scanning Provider External CV ECHO ORDERABLES Ed ited Result - Final documented in this encounter Visit Diagnoses Not on filedocumented in this encounter Additional Health Concerns Assessment Noted Time PHQ-9 Depression Total Score: 0 07/01/20 1:59 PM EDT A Body Mass Index follow-up plan has been documented for the patient 07/08/2023 6:23 AM EDT documented as of this encounter Care Teams Cardiac Tech Relationship Specialty Start Date End Date Cleo Espinoza, FILTER WASHER-COMMERCIAL RELATIONSHIP MANAGER [address] [place] [address] PCP - General Family Medicine 12/26/22 documented as of this encounter
--- OUTSIDE RECORDS SUMMARY | 2025-03-17 09:52 | XMS_ITS | Encounter Summary ---
Author Organization [facility] Address [facility] [id number] [address] [place] [address] Care Team Providers Care Greeting Card Editor Name Role Phone Cleo Espinoza Kyra IBRAHIM-TRANSACTION COORDINATOR Primary Care Provid er Encounter Details Date Type Department Care Team (Late st Contact Info) Description 11/27/2022 Orders Only [facility] Internal Medicine - Family Medicine [address] [place] [phone] External, Scanning Provider Social History Tobacco Use [...] Description 06/09/2025 9:40 AM EDT [facility] - Family Medicine [address] [place] [phone] Cleo Espinoza APRN-TRANSACTION COORDINATOR [address] [place] [phone] 06/30/2025 8:15 AM EDT Office Visit [facility] [address] [place] [phone] Carly Cole, PAGianna [address] [place] [address] 02/01/2026 1:00 PM EDT Office Visit [facility] [address] [place] [address] [place] [address] [place] [phone] Nadir Herman MD [address] [place] [address] 03/17/2026 8:30 AM EDT Office Visit [email or web address] - Medical Oncology [address] [place] [phone] [place] [address] [place] [address] [address] [place] [address] [phone] documented as of this encounter Procedures Procedure Name Priority Date/Time Associated Diagnosis Comments MULTIPLE RADS Routine 11/27/2022 documented in this encounter Results * Multiple rads (11/27/2022) Anatomical Region Laterality Modality Other us Scanning Provider External [facility] Final Result documented in this encounter Visit Diagnoses Not on filedocumented in this encounter Additional Health Concerns Assessment Noted Time PHQ-9 Depression Total Score: 0 11/09/19 23 10:43 AM EST documented as of this encounter Care Teams Greeting Card Editor Relationship Specialty Start Date End Date Cleo Espinoza APRN-TRANSACTION COORDINATOR [address] [place] [phone] PCP - General Family Medicine 12/26/22 documented as of this encounter
--- OUTSIDE RECORDS SUMMARY | 2025-03-17 09:53 | XMS_ITS | Encounter Summary ---
Author Organization [facility] Address [facility] [id number] [address] [place] [address] Care Team Providers Care Herb Grower Name Role Phone Cleo Espinoza APRN-GROUNDS CREW SUPERVISOR Primary Care Provid er Encounter Details Date Type Department Care Team (Late st Contact Info) Description 03/10/2025 [facility]phone [facility] - Family Medicine [address] [place] [phone] Manrie Roque CMA Social History Tobacco Use Types Packs/Day Years Used Date Smoking Tobacco: Former Cigarettes Q uit: 2002 Smokeless Tobacco: Never Alcohol Use Standard Drinks/Week Comments No 0 (1 standard drink = 0.6 oz pur e alcohol) [facility] Utilities Answer Date Recorded In [...] often do you attend chur ch or restoration services? More than 4 times per year 01/29/2025 Do you belong to any clubs o r organizations such as yazdanism groups, unions, fraternal or athletic groups, or [...] Answer Date Recorded Total Score 0 03/09/2025 [facility] of Occupat ional Health - [...] Recorded Do you need help finding a [facility] career center and/or a training [...] a purpose and direction in my life. Rolly luo Agree 01/29/2025 Sex and Gender Information Value Date Recorded Sex Assigned at Not on file Legal Sex Male 11:32 AM EDT Gender Identity Not on file Sexual Orientation Not on file documented as of this encounter Miscellaneous Notes * Telephone Encounter - Marnie Roque CMA - 03/10/2025 2:44 PM EDT Pt's Dentist called needing clearance in order to do dental work. They supposedly sent something over beginning of February. Does he need to be seen? Or has he been in recently enough? Thank you. * Telephone Encounter - PALOMO Ramos - 03/10/2025 2:44 PM EDT He was just here yesterday. I do not have the form the dentist is seeking. They will need to send it again. documented in this encounter Plan of Treatment Upcoming Encounters Date Type Department Care Team (Late st Contact Info) Description 06/09/2025 9:40 AM EDT Office Visit [facility] Internal Medicine - Family Medicine [address] [place] [phone] Cleo Espinoza APRN-CNP [address] [place] [address] 06/30/2025 8:15 AM EDT Office Visit [facility] [address] [place] [phone] Carly Cole, PA-C [address] [place] [address] 02/01/2026 1:00 PM EDT Office Visit [facility] [address] [place] [phone] Nadir Herman MD [address] [place] [address] 03/17/2026 8:30 AM EDT Office Visit [facility] - Medical Oncology [address] [place] [address] [place] [address] [place] [address] [address] [place] [address] [phone] documented as of this encounter Visit Diagnoses Not on filedocumented in this encounter Additional Health Concerns Assessment Noted Time PHQ-9 Depression Total Score: 0 03/09/20 9:33 AM EDT A Body Mass Index follow-up plan has been documented for the patient 03/09/2025 10:02 AM EDT documented as of this encounter Care Teams Herb Grower Relationship Specialty Start Date End Date Cleo Espinoza, TRANSIT DRIVER-GROUNDS CREW SUPERVISOR [address] [place] [address] PCP - General Family Medicine 12/26/22 documented as of this encounter
--- OUTSIDE RECORDS SUMMARY | 2025-03-17 09:53 | XMS_ITS | Encounter Summary ---
Author Organization [facility] Address [facility] [id number] [address] [place] [address] Care Team Providers Care Measurement Psychologist Name Role Phone Cleo Espinoaz APRN-WATER VESSEL CAPTAIN Primary Care Provid er Encounter Details Date Type Department Care Team (Late st Contact Info) Description 03/11/2025 Orders Only [facility] - Medical Oncology [address] [place] [phone] Nica Goldsmith, CHRIS Iron deficiency anemia due to chronic blood loss (Primary Dx); Normocytic anemia Social History Tobacco Use Types Packs/Day Years Used Date Smoking Tobacco: Former Cigarettes Q uit: 2002 Smokeless Tobacco: Never Alcohol Use Standard Drinks/Week Comments No 0 (1 standard drink = 0.6 oz pur e alcohol) [facility] Utilities Answer Date Recorded In the past 12 months has [employer] electric, gas, oil, or water company threatened [...] often do you attend chur ch or jewish services? More than 4 times per year 01/29/2025 Do you belong to any clubs o r organizations such as religion groups, unions, fraternal or athletic groups, or [...] Answer Date Recorded Total Score 0 03/09/2025 [facility] of Occupat ional Health - Occupational [...] Recorded Do you need help finding a [facility] career center and/or a [...] on file documented as of this encounter Progress Notes * Nica Goldsmith RN - 03/11/2025 9:13 AM EDT Patient saw DR. Katz today for follow up. Orders received to follow up in one year with [facility]. Kathy will call patient to schedule follow up. documented in this encounter Plan of Treatment Upcoming Encounters Date Type Department Care Team (Late st Contact Info) Description 06/09/2025 9:40 AM EDT Office Visit [facility] Internal Medicine - Family Medicine [address] [place] [phone] Cleo Espinoza, LSW-WATER VESSEL CAPTAIN [address] [place] [address] 06/30/2025 8:15 AM EDT Office Visit [facility] [address] [place] [phone] Carly Cole, PATatiC [address] [place], [place] [phone] 02/01/2026 1:00 PM EDT Office Visit [facility] [address] [facility] [place] [place] [phone] Nadir Herman MD [address] [place] [address] 03/17/2026 8:30 AM EDT Office Visit [facility] - Medical Oncology [address] [place] [address] Magan Katz MD [address] [facility] [address] [place] [address] Scheduled Orders Name Type Priority Associated Diagnoses Orde r Schedule CBC auto differential Lab Routine Iron deficiency anemia due to chronic blood loss Normocytic anemia Expected: 01/19/2026 (Approximate), Expires: 03/11/2026 Iron and TIBC Lab Routine Iron deficiency anemia due to chronic blood loss Normocytic anemia Expected: 01/19/2026 (Approximate), Expires: 03/11/2026 Ferritin Lab Routine Iron deficiency anemia due to chronic blood loss Normocytic anemia Expected: 01/19/2026 (Approximate), Expires: 03/11/2026 documented as of this encounter Visit Diagnoses Diagnosis Iron deficiency anemia due to chronic blood loss- Primary Iron deficiency anemia secondary to blood loss (chronic) Normocytic anemia Unspecified anemia documented in this encounter Additional Health Concerns Assessment Noted Time PHQ-9 Depression Total Score: 0 03/09/20 25 9:33 AM EDT A Body Mass Index follow-up plan has been documented for the patient 03/09/2025 10:02 AM EDT documented as of this encounter Care Teams Measurement Psychologist Relationship Specialty Start Date End Date Cleo Espinoza, LSW-WATER VESSEL CAPTAIN [address] [place] [address] PCP - General Family Medicine 12/26/22 documented as of this encounter
--- OUTSIDE RECORDS SUMMARY | 2025-03-17 09:53 | XMS_ITS | Encounter Summary ---
Author Organization [employer] [facility] tem Address [facility] [id number] [address] [place] [address] Care Team Providers Care Revenue Inspector Name Role Phone Cleo Espinoza APRN-SHAREPOINT NET DEVELOPER Primary Care Provid er Encounter Details Date Type Department Care Team (Latest Contact Info) Description 03/09/2025 Travel Social History Tobacco Use Types Packs/Day Years Used Date Smoking Tobacco: Former Cigarettes Q uit: 2002 Smokeless Tobacco: Never Alcohol Use Standard Drinks/Week Comments No 0 (1 standard drink = 0.6 oz pur e alcohol) [facility] Utilities Answer Date Recorded In [...] often do you attend chur ch or gnosticism services? More than 4 times per year 01/29/2025 Do you belong to any clubs o r organizations such as sikhism groups, unions, fraternal or athletic groups, or [...] Answer Date Recorded Total Score 0 03/09/2025 [facility] of Occupat ional Health - Occupational Stress [...] Recorded Do you need help finding a [facility] career center and/or a training program? [...] Description 06/09/2025 9:40 AM EDT Office Visit [facility] Internal Medicine - Family Medicine [address] [phone] Cleo Espinoza, CELL LEAD-SHAREPOINT NET DEVELOPER [address] [place] [address] 06/30/2025 8:15 AM EDT Office Visit [facility] [address] [place] [phone] Carly Cole, PA-C [address] [facility], 2[address] [place], [place] [phone] 02/01/2026 1:00 PM EDT Office Visit [facility] [address] [phone] Nadir Herman MD [address] [place] [address] 03/17/2026 8:30 AM EDT Office Visit [facility] Medical [facility] [address] [place] [phone] Magan Katz MD [address] [facility] [address] [place] [address] documented as of this encounter Visit Diagnoses Not on filedocumented in this encounter Additional Health Concerns Assessment Noted Time PHQ-9 Depression Total Score: 0 03/09/20 25 9:33 AM EDT A Body Mass Index follow-up plan has been documented for the patient 03/09/2025 10:02 AM EDT documented as of this encounter Care Teams Revenue Inspector Relationship Specialty Start Date End Date Cleo Espinoza APRN-SHAREPOINT NET DEVELOPER [address] [place] [address] PCP - General Family Medicine 12/26/22 documented as of this encounter
--- OUTSIDE RECORDS SUMMARY | 2025-03-17 09:53 | XMS_ITS | Encounter Summary ---
Author Organization [employer] Sys tem Address [facility] [id number] [address] [place] [address] Care Team Providers Care Assistant Commissioner Name Role Phone Cleo Espinoza APRN-AIR TRANSPORTATION PROVIDER Primary Care Provid er Reason for Visit * Reason Onset Date Comments Med Refill 09/28/2024 Encounter Details Date Type Department Care Team (Late st Contact Info) Description 09/28/2024 Refill [facility] Internal [facility] - Family Medicine [address] [place] [address] Hien Sanchez, DEA Rheumatoid arthritis involving multiple joints ([facility]) Social History Tobacco Use Types Packs/Day Years [...] often do you attend chur ch or mormon services? More than 4 times per year 05/30/2023 Do you belong to any clubs o r organizations such as taoist groups, unions, fraternal or athletic groups, or [...] PHQ-2 Answer Date Recorded Total Score 0 09/09/2024 [facility] of Occupat ional Health - Occupational [...] Recorded Do you need help finding a l ocal career center and/or a training program? No 05/30/2023 Hunger Screening Answer Date Recorded Within the past 12 months we worried whether our food would run out before we got money to buy more. Never True 09/09/2024 Within the past 12 months th e food we bought just didn't last and we didn't have money to get more. Never True 09/09/2024 Purpose - Life Answer Date Recorded I [...] Description 06/09/2025 9:40 AM EDT Office Visit [facility] Internal Medicine - Family Medicine [address] [place] [phone] Cleo Espinoza, END USER CONSULTANT-AIR TRANSPORTATION PROVIDER [address] [facility] [place] [phone] 06/30/2025 8:15 AM EDT Office Visit [facility] [address] [place] [phone] Carly Cole, PA-C [address] [facility], 2nd Floor [place], [place] [phone] 02/01/2026 1:00 PM EDT Office Visit [facility] [address] [place] [address] [place] [phone] Nadir Herman MD [address] [place] [address] 03/17/2026 8:30 AM EDT Office Visit [facility] [address] [place] [phone] Magan Katz MD [address] [facility] [address] [place] [address] documented as of this encounter Visit Diagnoses Diagnosis Rheumatoid arthritis involving multiple joints ([facility]-HCC) documented in this encounter Additional Health Concerns Assessment Noted Time PHQ-9 Depression Total Score: 0 09/09/20 24 9:10 AM EST A Body Mass Index follow-up plan has been documented for the patient 09/09/2024 9:51 AM EST documented as of this encounter Care Teams Assistant Commissioner Relationship Specialty Start Date End Date Cleo Espinoza, END USER CONSULTANT-AIR TRANSPORTATION PROVIDER [address] [place] [address] PCP - General Family Medicine 12/26/22 documented as of this encounter
--- OUTSIDE RECORDS SUMMARY | 2025-03-17 09:53 | XMS_ITS | Encounter Summary ---
Author Organization [employer] s tem Address [facility] [id number] [address] [place] [address] Care Team Providers Care Middle School Music Teacher Name Role Phone Cleo Espinoza APRN-CONTAINER FINISHER Primary Care Provid er Encounter Details Date Type Department Care Team (Late st Contact Info) Description 02/27/2023 Orders Only [facility] [address] [place] [phone] Magan Katz MD [address] [facility] [address] [place], [place] [phone] Social History Tobacco Use Types Packs/Day Years Used Date Smoking Tobacco: Former Cigarettes Q uit: 2002 Smokeless Tobacco: Never Alcohol Use Standard Drinks/Week Comments No 0 (1 standard drink = 0.6 oz pur e alcohol) PHQ-2 Answer Date Recorded Total Score 0 02/06/2023 Childcare Answer Date Recorded Childcare Unknown 03/31/2019 [...] Medicine - Family Medicine [address] [place] [phone] Cleo Espinoza, WEBSPHERE PORTAL DEVELOPER-CONTAINER FINISHER [address] [place] [phone] 06/30/2025 8:15 AM EDT Office Visit [facility] [address] [place] [phone] Carly Cole, PA-C [address], 2nd [place] [address] 02/01/2026 1:00 PM EDT Office Visit [facility] [address] [place] [address] [address] [facility] [place] [phone] Nadir Herman MD [facility] [place] [address] 03/17/2026 8:30 AM EDT Office Visit [facility] - Medical Oncology [address] [place] [phone] Magan Katz MD [address] [place] [address] [address] [place] [phone] documented as of this encounter Visit Diagnoses Not on filedocumented in this encounter Additional Health Concerns Assessment Noted Time PHQ-9 Depression Total Score: 0 02/07/20 10:35 AM EDT A Body Mass Index follow-up plan has been documented for the patient 01/24/2023 7:15 AM EDT documented as of this encounter Care Teams Middle School Music Teacher Relationship Specialty Start Date End Date Cleo Espinoza, WEBSPHERE PORTAL DEVELOPER-CONTAINER FINISHER [address] [place] [phone] PCP - General Family Medicine 12/26/22 documented as of this encounter
--- OUTSIDE RECORDS SUMMARY | 2025-03-17 09:53 | XMS_ITS | Encounter Summary ---
Author Organization [facility] Address [facility] [id number] [address] [place] [address] Care Team Providers Care Engine Service Repairer Name Role Phone Espinoza, Cleo CULVER Primary Care Provid er Reason for Visit * Reason Comments Med Refill Encounter Details Date Type Department Care Team (Late st Contact Info) Description 10/25/2022 Refill [facility] Internal Medicine - Family Medicine [address] [place] [address] Jackson Blackwell, DO [address] [facility] [place] [address] Social History Tobacco Use Types Packs/Day Years [...] have Coronavirus / COVID-19? No / Unsure 10/26/2022 9:29 AM EST documented as of this encounter Plan of Treatment Upcoming Encounters Date Type Department Care Team (Late st Contact Info) Description 06/09/2025 9:40 AM EDT Office Visit [facility] Internal Medicine - Family Medicine [address] [place] [phone] Cleo Espinoza, SUPERVISOR PASTE PLANT-CRIME SCENE ANALYST [address] [place] [phone] 06/30/2025 8:15 AM EDT Office Visit [facility] Management [facility] [address] [place] [phone] Carly Cole PA-C [address] [facility] [address] [place] [address] 02/01/2026 1:00 PM EDT Office Visit [facility] [address] [place] [phone] Nadir Herman MD [facility] [place] [address] 03/17/2026 8:30 AM EDT Office Visit [facility] - Medical Oncology [address] [place] [phone] Magan Katz MD [address] [place] [address] documented as of this encounter Visit Diagnoses Not on filedocumented in this encounter Additional Health Concerns Assessment Noted Time PHQ-9 Depression Total Score: 0 07/19/20 11:02 AM EDT documented as of this encounter Care Teams Engine Service Repairer Relationship Specialty Start Date End Date Cleo Espinoza SUPERVISOR PASTE PLANT-CRIME SCENE ANALYST [address] [place] [phone] PCP - General Family Medicine 12/26/22 documented as of this encounter
--- OUTSIDE RECORDS SUMMARY | 2025-03-17 09:53 | XMS_ITS | Clinical Summary ---
Author Organization [facility] Healthcare Address [address] [place] [address] Care Team Providers Care Nursing Faculty Name Role Phone Unavailable Primary Care Provider Unavailabl e Social History Tobacco Use Types Packs/Day Years Used Date Smoking Tobacco: Never Assessed Sex and Gender Information Value Date Recorded Sex Assigned at Not on file Legal Sex Male 8:24 PM EDT Gender Identity Not on file Sexual Orientation Not on file Last Filed Vital Signs Vital Sign Reading Time Taken Comments Blood Pressure 142/76 10/20/2019 12:00 PM EST Pulse - - Temperature - - Respiratory Rate - - Oxygen Saturation - - Inhaled Oxygen Concentration - - Weight 91.6 kg (202 lb) 09/28/2020 12:00 PM EST Height 172.7 cm (5' 8 ) 09/28/2020 12:00 PM EST Body Mass Index 30.71 09/28/2020 12:00 PM EST Plan of Treatment Health Maintenance Due Date Last Done Comments Influenza Vaccine (Season Ended) 2025 07/23/2023, 07/11/2023, 07/11/2022, Additional history exists Pneumococcal Vaccine: 65+ Years Completed 4, 06/16/2012
--- OUTSIDE RECORDS SUMMARY | 2025-03-17 09:53 | XMS_ITS | Encounter Summary ---
Author Organization [employer] tem Address [facility] [id number] [address] [place] [address] Care Team Providers Care Director Of Student Affairs Name Role Phone Cleo Espinoza APRN-PERCUSSION TEACHER Primary Care Provid er Encounter Details Date Type Department Care Team (Late st Contact Info) Description 03/09/2025 Orders Only [facility] - Medical Oncology [address] [place] [phone] Nica Goldsmith, CHRIS Iron deficiency anemia due to chronic blood loss (Primary Dx); Normocytic anemia Social History Tobacco Use Types Packs/Day Years Used Date Smoking Tobacco: Former Cigarettes Q uit: 2002 Smokeless Tobacco: Never Alcohol Use Standard Drinks/Week Comments No 0 (1 standard drink = 0.6 oz pur e alcohol) [facility] Utilities Answer Date Recorded In the past 12 months has [employer] electric, gas, oil, or water company threatened [...] often do you attend chur ch or orthodox services? More than 4 times per year 01/29/2025 Do you belong to any clubs o r organizations such as shinto groups, unions, fraternal or athletic groups, or [...] Answer Date Recorded Total Score 0 03/09/2025 [facility] of Occupat ional Health - Occupational [...] Recorded Do you need help finding a [facility] career center and/or a [...] Description 06/09/2025 9:40 AM EDT Office Visit [facility] Internal Medicine - Family Medicine [address] [place] [phone] Cleo Espinoza, SUPERVISOR OF OPERATIONS-PERCUSSION TEACHER [address] [place] [phone] 06/30/2025 8:15 AM EDT Office Visit [facility] Management [facility] [address] [place] [phone] Carly Cole, PA-C [address] [facility], 2nd [place] [address] 02/01/2026 1:00 PM EDT Office Visit [facility] [address] [place] [phone] Nadir Herman MD [address] [place] [address] 03/17/2026 8:30 AM EDT Office Visit [facility] [address] [place] [phone] Magan Katz MD [address] [place] [address] [address] [place] [address] [phone] Scheduled Orders Name Type Priority Associated Diagnoses Orde r Schedule Iron and TIBC Lab Routine Iron deficiency anemia due to chronic blood loss Normocytic anemia 1 Occurrences starting 03/09/2025 until 03/09/2026 Ferritin Lab Routine Iron deficiency anemia due to chronic blood loss Normocytic anemia 1 Occurrences starting 03/09/2025 until 03/09/2026 CBC auto differential Lab Routine Iron deficiency anemia due to chronic blood loss Normocytic anemia 1 Occurrences starting 03/09/2025 until 03/09/2026 documented as of this encounter Visit Diagnoses [...] as of this encounter Care Teams Director Of Student Affairs Relationship Specialty Start Date End Date Cleo Espinoza, SUPERVISOR OF OPERATIONS-PERCUSSION TEACHER [address] [place] [address] PCP - General Family Medicine 12/26/22 documented as of this encounter
--- OUTSIDE RECORDS SUMMARY | 2025-03-17 09:53 | XMS_ITS | Encounter Summary ---
Author Organization [facility] [employer] Sys [employer] Address [facility] [id number] [address] [place] [address] Care Team Providers Care Manager Automotive Name Role Phone Cleo Espinoza APRN-EVP OF PRODUCTS & CO FOUNDER Primary Care Provid er Encounter Details Date Type Department Care Team (Late st Contact Info) Description 03/12/2024 Telephone [facility] Pulmonary/Sleep Medicine [address] [phone] Rebekah Wooten RN Social History Tobacco Use Types Packs/Day Years [...] PHQ-2 Answer Date Recorded Total Score 0 03/04/2024 [facility] of Occupat ional Health - Occupational Stress [...] Recorded Do you need help finding a [facility] career center and/or a training program? No 05/30/2023 Hunger Screening Answer Date Recorded Within the past 12 months we worried whether our food would run out before we got money to buy more. Never True 03/04/2024 Within the past 12 months th e food we bought just didn't last and we didn't have money to get more. Never True 03/04/2024 Purpose - Life Answer Date Recorded I have a purpose and direction in my life. Stron gly Agree 05/30/2023 Sex and Gender Information Value Date Recorded Sex Assigned at Not on file Legal Sex Male 11:32 AM EDT Gender Identity Not on file Sexual Orientation Not on file documented as of this encounter Miscellaneous Notes * Telephone Encounter - Rebekah Wooten RN - 03/12/2024 8:24 AM EDT Transport Analyst spoke to patient and informed per Dr Soni, CT chest showed known ILD. Patient has stabledisease on CT. Recommend patient to keep f/u appt on 05-28-24 at our [place] office. Patient agreeable ----- Message from Natacha Soni MD sent at 03/11/2024 10:35 AM EDT ----- Known ILD. Patient has stable disease on CT but needs follow up scheduled. documented in this encounter Plan of Treatment Upcoming Encounters Date Type Department Care Team (Late st Contact Info) Description 06/09/2025 9:40 AM EDT Office Visit [facility] Internal Medicine - Family Medicine [address] [place] [phone] Cleo Espinoza, FIRE PREVENTION INSPECTOR-EVP OF PRODUCTS & CO FOUNDER [address] [facility] [place] [address] 06/30/2025 8:15 AM EDT Office Visit [facility] Management [facility] [address] [place] [phone] Carly Cole PAGianna [address], 2[address] [place], [place] [phone] 02/01/2026 1:00 PM EDT [facility] [address] [facility] [place] [address] [place] [phone] Nadir Herman MD [address] [place] [address] 03/17/2026 8:30 AM EDT Office Visit [facility] - Medical Oncology [address] [place] [address] Magan Katz MD [address] [facility] [address] [place] [address] documented as of this encounter Visit Diagnoses Not on filedocumented in this encounter Additional Health Concerns Assessment Noted Time PHQ-9 Depression Total Score: 0 03/04/20 12:52 PM EDT A Body Mass Index follow-up plan has been documented for the patient 03/04/2024 4:04 PM EDT documented as of this encounter Care Teams Manager Automotive Relationship Specialty Start Date End Date Cleo Espinoza APRN-EVP OF PRODUCTS & CO FOUNDER [address] [place] [address] PCP - General Family Medicine 12/26/22 documented as of this encounter
--- OUTSIDE RECORDS SUMMARY | 2025-03-17 09:53 | XMS_ITS | Encounter Summary ---
Author Organization [employer] Address [facility] [id number] [address] [place] [address] Care Team Providers Care Oriental Medicine Practitioner Name Role Phone Alexis Cleo Rae APRN-PATROL JUDGE Primary Care Provid er Reason for Visit * Reason Onset Date Comments Med Refill 07/21/2024 Encounter Details Date Type Department Care Team (Late st Contact Info) Description 07/21/2024 Refill [facility] Internal Medicine - Family Medicine [address] [place] [address] Fanta Talley CMA Other male erectile dysfunction Social History Tobacco Use Types Packs/Day Years [...] often do you attend chur ch or jain services? More than 4 times per year [...] Answer Date Recorded Total Score 0 06/08/2024 [facility] [place] of Occupat ional Health - Occupational Stress [...] Description 06/09/2025 9:40 AM EDT Office Visit [facility] Internal Medicine - Family Medicine [address] [place] [phone] Cleo Espinoza, STRIP MINE SUPERVISOR-PATROL JUDGE [address] [facility] [place] [phone] 06/30/2025 8:15 AM EDT Office Visit [facility] Management Clinic [address] [place] [phone] Carly Cole, PA-C [address] [facility], 2nd [address] [place], [place] [phone] 02/01/2026 1:00 PM EDT Office Visit [facility] [address] [place] [phone] Nadir Herman MD [address] [place] [address] 03/17/2026 8:30 AM EDT Office Visit [facility] On[facility] [address] [place] [phone] Magan Katz MD [address] [place] [address] [address] [place] [address] [phone] documented as of this encounter Visit Diagnoses Diagnosis Other male erectile dysfunction documented in this encounter Additional Health Concerns Assessment Noted Time PHQ-9 Depression Total Score: 0 06/08/20 24 8:03 AM EDT A Body Mass Index follow-up plan has been documented for the patient 06/08/2024 12:52 PM EDT documented as of this encounter Care Teams Oriental Medicine Practitioner Relationship Specialty Start Date End Date Cleo Espinoza, STRIP MINE SUPERVISOR-PATROL JUDGE [address] [place] [address] PCP - General Family Medicine 12/26/22 documented as of this encounter
[2025-03-18 08:09] LABS: Rheumatoid Factor (RF) 33.9 IU/mL (<14.0)
== END 2025-03-17 09:45 | disposition home or self-care (01) ==
LOC: LAB 09:50
PROVIDERS: PCP Nurse Practitioner; Visit Provider Chiropractor
DX: M06.9 Rheumatoid arthritis, unspecified (principal)
CPT/HCPCS: 36415; 86431

== ENCOUNTER 2025-06-18 09:46 | Outpatient (OUT) | payer OTHER, SELFPAY ==
--- NOTE | 2025-06-18 10:00 | XR_ITS ---
The [address] [address] Patient Name: ADOLFO ASH MRN: [id number] date: 1945 Sex: M Assigned Patient Location: [facility] Current Patient Location: [facility] Accession/Order Number: [id number] Exam Date: 06/18/2025 10:05 Report Date: 06/18/2025 11:10 At the request of: LAWRENCE ANDERSON DO Procedure: XR lumbar spine 2-3V BILATERAL KNEES - 3 views each CLINICAL DATA: Bilateral knee pain, greater on the right. No injury. Previous left knee replacement. COMPARISON: None Weightbearing AP, lateral and sunrise views were obtained. There is a knee prosthesis on the left. The hardware appears intact and in appropriate position. No acute fractures are identified. No dislocation is seen. There is no patellar subluxation. No disproportionate joint space narrowing is visualized on the right. There is minor marginal spurring on that side. There is a small enthesophyte at the insertion of the quadriceps tendon. No knee effusion is seen. There are soft tissue calcifications projecting above the patella on the right. Atherosclerotic disease is noted. XR/XR lumbar spine 2-3V IMPRESSION: SATISFACTORY APPEARANCE OF LEFT KNEE REPLACEMENT. MINOR DEGENERATIVE CHANGE ON THE RIGHT. NO ACUTE BONY FINDINGS. LUMBAR SPINE - 3 views CLINICAL DATA: Chronic worsening back pain COMPARISON: None AP, lateral lumbar and lumbosacral views were obtained. His osteopenia. There is mild dextroscoliotic curvature. Partial lumbarization of S1 is noted. No acute compression fractures are visualized. No significant displacement is seen. There is mild multilevel disc space narrowing and endplate spurring. Lower lumbar facet hypertrophy is seen. The SI joints are intact. There is atherosclerotic plaque at the aorta and iliac arteries. IMPRESSION: OSTEOPENIA, SCOLIOSIS AND DEGENERATIVE CHANGES. NO DEFINITE ACUTE BONY FINDINGS. Impression dictated by: Huma Mendoza M.D. 06/18/2025 11:10 AM Dictation Location: [facility] Electronically authenticated by: [id number] Y Date: 06/18/2025 11:10
--- NOTE | 2025-06-18 10:00 | XR_ITS ---
The [address] [address] Patient Name: ADOLFO ASH MRN: [id number] date: 1945 Sex: M Assigned Patient Location: [facility] Current Patient Location: [facility] Accession/Order Number: [id number] Exam Date: 06/18/2025 10:05 Report Date: 06/18/2025 11:10 At the request of: LAWRENCE ANDERSON DO Procedure: XR lumbar spine 2-3V BILATERAL KNEES - 3 views each CLINICAL DATA: Bilateral knee pain, greater on the right. No injury. Previous left knee replacement. COMPARISON: None Weightbearing AP, lateral and sunrise views were obtained. There is a knee prosthesis on the left. The hardware appears intact and in appropriate position. No acute fractures are identified. No dislocation is seen. There is no patellar subluxation. No disproportionate joint space narrowing is visualized on the right. There is minor marginal spurring on that side. There is a small enthesophyte at the insertion of the quadriceps tendon. No knee effusion is seen. There are soft tissue calcifications projecting above the patella on the right. Atherosclerotic disease is noted. XR/XR knee ARI 3V IMPRESSION: SATISFACTORY APPEARANCE OF LEFT KNEE REPLACEMENT. MINOR DEGENERATIVE CHANGE ON THE RIGHT. NO ACUTE BONY FINDINGS. LUMBAR SPINE - 3 views CLINICAL DATA: Chronic worsening back pain COMPARISON: None AP, lateral lumbar and lumbosacral views were obtained. His osteopenia. There is mild dextroscoliotic curvature. Partial lumbarization of S1 is noted. No acute compression fractures are visualized. No significant displacement is seen. There is mild multilevel disc space narrowing and endplate spurring. Lower lumbar facet hypertrophy is seen. The SI joints are intact. There is atherosclerotic plaque at the aorta and iliac arteries. IMPRESSION: OSTEOPENIA, SCOLIOSIS AND DEGENERATIVE CHANGES. NO DEFINITE ACUTE BONY FINDINGS. Impression dictated by: Huma Mendoza M.D. 06/18/2025 11:10 AM Dictation Location: [facility] Electronically authenticated by: [id number] Y Date: 06/18/2025 11:10
== END 2025-06-18 09:47 | disposition home or self-care (01) ==
PROVIDERS: PCP Nurse Practitioner; Visit Provider Chiropractor
DX: M13.80 Other specified arthritis, unspecified site (principal); M51.369 Other intervertebral disc degeneration, lumbar region without mention of lumbar back pain or lower extremity pain; M41.86 Other forms of scoliosis, lumbar region
CPT/HCPCS: 72100; 73562